=== PATIENT | male | born 1945 | race Hispanic/Latino ===

== ENCOUNTER 2017-05-02 15:58 | Emergency (ER) | payer MEDICARE ==
--- NOTE | 2017-05-02 17:02 | RAD ---
PROCEDURE: Radiographs of the Chest and Left Ribs. HISTORY: trauma COMPARISON: None available. TECHNIQUE: Frontal radiograph of the chest and multiple oblique radiographs of the left ribs were obtained. FINDINGS: LEFT RIBS: Motion artifacts limit the study somewhat. No displaced fractures identified throughout the left ribs. LUNGS: No infiltrate bilaterally. PLEURA: No pneumothorax or pleural fluid. CARDIOVASCULAR: Normal sized heart. No pulmonary vascular congestion. OTHER FINDINGS: None. IMPRESSION: No definite left rib fracture identified. Motion artifacts limit frontal view somewhat. No acute infiltrate appreciated bilaterally. No pneumothorax apparent.
[2017-05-02] MEDS ORDERED: Lidocaine 5% Patch TD STA (17:09)
--- NOTE | 2017-05-02 17:13 | C.PDOC ---
History Of Present Illness SP FALL THIS MORNING CO L CHEST/BACK CONTUSION, PERSIST PAIN. PS TRIPPED ON RUG WHILE IN STORE, FELL ONTO L SIDE. NORMALLY WALKS W CANE ASSIST. NO OTHER ASSOC INJ. PAIN LOCALIZED WORSE W MOVEMENT. NO PAIN MEDS TRIED EXAM MILD DIST NONTOXIC HEENT ATRAUM NECK SUPPLE NONTEND CHEST WALL GEN TEND L LAT CHEST WALL MOD NO CREPITUS, SWELL DEFORM LUNGS CTA B/L NO W/R/R SKIN INTACT ATRAUM REMAINDER NEG - HPI Time Seen by Provider: 05/02/17 16:46 Chief Complaint (Nursing): Rib Injury History Per: Patient History/Exam Limitations: no limitations Onset/Duration Of Symptoms: Hrs Severity: Moderate Past Medical History Reviewed: Historical Data, Nursing Documentation, Vital Signs Vital Signs: Last Vital Signs Temp 97.9 F 05/02/17 16:29 Pulse 68 05/02/17 16:29 Resp 20 05/02/17 16:29 BP 176/95 H 05/02/17 16:29 Pulse Ox 98 05/02/17 18:05 - Medical History PMH: Arthritis, HTN, Hyperlipidemia Denies: Chronic Kidney Disease Surgical History: Coronary Stent - [facility] Procedures INSERTION OF INFUSION DEVICE INTO R [facility], PERC APPROACH (01/07/15) Family History: States: No Known Family Hx - Social History Hx Alcohol Use: No Hx Substance Use: No - Immunization History Hx Tetanus Toxoid Vaccination: Yes Hx Influenza Vaccination: Yes Hx Pneumococcal Vaccination: Yes Review Of Systems Except As Marked, All Systems Reviewed And Found Negative. Cardiovascular: Positive for: Chest Pain (left-sided chest pain) Musculoskeletal: Positive for: Back Pain Neurological: Negative for: Weakness, Numbness Physical Exam - Physical Exam Appears: Non-toxic, Other (mild distress) Skin: Normal Color, Warm, Other (intact, atraumatic) Head: Atraumatic, Normacephalic Eye(s): bilateral: Normal Inspection Neck: No Midline Cervical Tenderness, Supple Chest: Tenderness (moderate generalized tenderness to lateral chest wall), Other (no crepitus, no swelling, no deformity) Respiratory: Normal Breath Sounds, No Rales, No Rhonchi, No Wheezing Neurological/Psych: Oriented x3, Normal Speech ED Course And Treatment O2 Sat by Pulse Oximetry: 98 (RA) Pulse Ox Interpretation: Normal - Radiology CXR: Interpreted by Me CXR Interpretation: Yes: No Acute Disease Medical Decision Making Medical Decision Making: Plan: --Flexeril PO --Motrin PO --Tylenol PO --Lidoderm Patch --X-Ray - Ribs with Chest Disposition Counseled Patient/Family Regarding: Studies Performed, Diagnosis, Need For Followup, Rx Given - Disposition Referrals: YOUR,PMD [Other] Disposition: HOME/ ROUTINE Disposition Time: 17:13 Condition: IMPROVED Prescriptions: Acetaminophen [Tylenol Extra Strength] 2 tab PO Q6 #30 tablet Cyclobenzaprine [Flexeril] 10 mg PO TID #15 tab Ibuprofen [Motrin] 600 mg PO Q6 #30 tab Lidocaine 5% [Lidoderm] 1 ea TD PRN PRN #20 patch PRN Reason: Pain, Moderate (4-7) Instructions: Bruised Rib (DC) Forms: [employer] (Thai) - Clinical Impression Clinical Impression: Chest wall contusion - Scribe Statement The provider has reviewed the documentation as recorded by the Rosa Hensley Provider Attestation: All medical record entries made by the Radhaiblydia were at my direction and personally dictated by me. I have reviewed the chart and agree that the record accurately reflects my personal performance of the history, physical exam, medical decision making, and the department course for this patient. I have also personally directed, reviewed, and agree with the discharge instructions and disposition.
[2017-05-03 11:18] VITALS: BP 176/95; PULSE 68; RESP 20; TEMP 97.9; O2SAT 98; BMI 36.5
== END 2017-05-02 17:30 | disposition home or self-care (01) ==
LOC: C.ER 15:58
DX: S20.212A Contusion of left front wall of thorax, initial encounter (principal); W01.0XXA Fall on same level from slipping, tripping and stumbling without subsequent striking against object, initial encounter; Y92.512 Supermarket, store or market as the place of occurrence of the external cause; E78.5 Hyperlipidemia, unspecified; I10 Essential (primary) hypertension

== ENCOUNTER 2017-08-03 17:54 | Emergency (ER) | payer MEDICARE ==
[2017-08-03 17:55] VITALS: BMI 36.5
[2017-08-03 18:08] VITALS: RESP 20
[2017-08-03 18:46] LABS: BASO % 0.7 % (0.0-2.0); EOS # 0.1 K/uL (0.0-0.7); EOS % 1.7 % (0.0-4.0); HEMOGLOBIN 14.5 g/dL (12.0-18.0); LYMPH # 2.9 K/uL (1.0-4.3); LYMPH % 42.7 % (20.0-40.0); MEAN CELL VOLUME 87.7 fL (80.0-94.0); MEAN CORPUSCULAR HEMOGLOBIN 29.5 pg (27.0-31.0); MEAN CORPUSCULAR HGB CONC 33.7 g/dL (33.0-37.0); MEAN PLATELET VOLUME 9.7 fL (7.2-11.7); MONO # 0.6 K/uL (0.0-0.8); MONO % 9.3 % (0.0-10.0); NEUT # 3.1 K/uL (1.8-7.0); NEUT % 45.6 % (50.0-75.0); NRBC % 0.1 % (0.0-2.0); RBC 4.9 Mil/uL (4.40-5.90); RED CELL DISTRIBUTION WIDTH 13.6 % (11.5-14.5); WHITE BLOOD COUNT 6.8 K/uL (4.8-10.8)
[2017-08-03 19:03] LABS: ALB/GLOB RATIO 1.3 (1.0-2.1); ALT/SGPT 22 U/L (21-72); AST/SGOT 22 U/L (17-59); BLOOD UREA NITROGEN 22 mg/dL (9-20); CALCIUM 9.2 mg/dl (8.6-10.4); GFR AFRICAN-AMERICAN > 60; GFR NON-AFRICAN AMERICAN > 60
[2017-08-03 19:21] VITALS: BP 157/83; PULSE 73; TEMP 98.2; O2SAT 98
--- NOTE | 2017-08-03 19:38 | C.PDOC ---
History Of Present Illness 72-year-old male, presents to the emergency department complaining of redness to right lower extremity noted earlier today. He denies any fever, trauma to area or warmth. Chief Complaint (Nursing): Abnormal Skin Integrity History Per: Patient History/Exam Limitations: no limitations Onset/Duration Of Symptoms: Days Current Symptoms Are (Timing): Still Present Past Medical History Reviewed: Historical Data, Nursing Documentation, Vital Signs Vital Signs: Last Vital Signs Temp 98.2 F 08/03/17 19:15 Pulse 73 08/03/17 19:15 Resp 20 08/03/17 19:15 BP 157/83 H 08/03/17 19:15 Pulse Ox 98 08/03/17 19:38 - Medical History PMH: Arthritis, HTN, Hyperlipidemia Surgical History: Coronary Stent, Tonsillectomy - [facility] Procedures INSERTION OF INFUSION DEVICE INTO R [facility], PERC APPROACH (01/07/15) Family History: States: No Known Family Hx - Social History Hx Alcohol Use: No Hx Substance Use: No - Immunization History Hx Tetanus Toxoid Vaccination: No Hx Influenza Vaccination: Yes Hx Pneumococcal Vaccination: Yes Review Of Systems Constitutional: Negative for: Fever, Chills Cardiovascular: Negative for: Chest Pain, Palpitations Respiratory: Negative for: Cough, Shortness of Breath Gastrointestinal: Negative for: Nausea, Vomiting Musculoskeletal: Positive for: Other (swelling to leg) Neurological: Negative for: Headache, Dizziness Physical Exam - Physical Exam Appears: Non-toxic, No Acute Distress Skin: Normal Color, Warm, Dry, No Rash Head: Atraumatic, Normacephalic Eye(s): bilateral: Normal Inspection, PERRL, EOMI Nose: Normal Oral Mucosa: Moist Lips: Normal Appearing Neck: Normal ROM Cardiovascular: Rhythm Regular, No Murmur Respiratory: Normal Breath Sounds, No Accessory Muscle Use Gastrointestinal/Abdominal: Soft, No Tenderness Extremity: Pedal Edema (B/L lower extremities with chronic venous stasis changes ), Other (RLE: 3x4cm area of erythema. Not warm or tender) Pulses: Left Dorsalis Pedis: Normal, Right Dorsalis Pedis: Normal Neurological/Psych: Oriented x3, Normal Speech ED Course And Treatment - Laboratory Results Result Diagrams: 08/03/17 18:42 08/03/17 18:42 O2 Sat by Pulse Oximetry: 98 (RA) Pulse Ox Interpretation: Normal Disposition - Disposition Referrals: Elliot Olivarez MD [Staff Provider] - Disposition: HOME/ ROUTINE Disposition Time: 19:00 Condition: GOOD Additional Instructions: MANDO LOPES, thank you for letting us take care of you today. Your provider was Leonardo Rogers DO and you were treated for ABNORMAL SKIN/RT LEG. The emergency medical care you received today was directed at your acute symptoms. If you were prescribed any medication, please fill it and take as directed. It may take several days for your symptoms to resolve. Return to the Emergency Department if your symptoms worsen, do not improve, or if you have any other problems. Please contact your doctor or call one of the physicians/clinics you have been referred to that are listed on the Patient Visit Information form that is included in your discharge packet. Bring any paperwork you were given at discharge with you along with any medications you are taking to your follow up visit. Our treatment cannot replace ongoing medical care by a primary care provider outside of the emergency department. Thank you for allowing the [facility] team to be part of your care today. Follow up with Dr. Olivarez in 3-4 days for re-evaluation and further management. Prescriptions: Cephalexin [cephalexin] 500 mg PO Q8 #21 cap Sulfamethoxazole/Trimethoprim [Bactrim DS 800 mg-160 mg] 1 tab PO BID #14 tab Instructions: Cellulitis (Skin Infection), Adult (DC) Forms: [employer] (Venezuelan) - Clinical Impression Clinical Impression: Cellulitis - Scribe Statement The provider has reviewed the documentation as recorded by the Scribe (Marin Bryant) All medical record entries made by the Scribe were at my direction and personally dictated by me. I have reviewed the chart and agree that the record accurately reflects my personal performance of the history, physical exam, medical decision making, and the department course for this patient. I have also personally directed, reviewed, and agree with the discharge instructions and disposition.
== END 2017-08-03 20:01 | disposition home or self-care (01) ==
LOC: C.ER 17:54
DX: L03.115 Cellulitis of right lower limb (principal)

== ENCOUNTER 2018-05-02 15:53 | Inpatient (IN) | payer MEDICARE ==
[2018-05-02 15:53] VITALS: BMI 36.5
[2018-05-02 16:44] LABS: BASO % 0.8 % (0.0-2.0); EOS # 0.1 K/uL (0.0-0.7); EOS % 1.9 % (0.0-4.0); HEMOGLOBIN 14.4 g/dL (12.0-18.0); LYMPH # 1.8 K/uL (1.0-4.3); LYMPH % 31.1 % (20.0-40.0); MEAN CELL VOLUME 88.4 fL (80.0-94.0); MEAN CORPUSCULAR HEMOGLOBIN 28.8 pg (27.0-31.0); MEAN CORPUSCULAR HGB CONC 32.6 g/dL (33.0-37.0); MONO # 0.6 K/uL (0.0-0.8); MONO % 9.7 % (0.0-10.0); NEUT # 3.4 K/uL (1.8-7.0); NEUT % 56.5 % (50.0-75.0); RBC 5.01 Mil/uL (4.40-5.90); RED CELL DISTRIBUTION WIDTH 13.6 % (11.5-14.5); WHITE BLOOD COUNT 5.9 K/uL (4.8-10.8)
[2018-05-02 17:03] LABS: ALB/GLOB RATIO 1.4 (1.0-2.1); ALBUMIN 3.9 g/dL (3.5-5.0); AST/SGOT 32 U/L (17-59); BLOOD UREA NITROGEN 11 mg/dL (9-20); CALCIUM 9.3 mg/dl (8.6-10.4); GFR NON-AFRICAN AMERICAN > 60
--- NOTE | 2018-05-02 17:03 | C.PDOC ---
History Of Present Illness Patient is a 72 year old male, with a PMHx of diabetes, HTN, HLD who presents to the ED c/o bleeding from his right big toe that began 2 days ago. Patient states that he has chronic pedal edema, but noticed that his right foot swelled up more than his left after which he went to his PMD Dr. Olivarez, who have him medications and the swelling went down. He denies any CP, SOB, or abdominal pain. Time Seen by Provider: 05/02/18 16:04 Chief Complaint (Nursing): Lower Extremity Problem/Injury History Per: Patient History/Exam Limitations: no limitations Onset/Duration Of Symptoms: Days (2) Current Symptoms Are (Timing): Still Present Recent travel outside of the [place]: No Additional History Per: Patient Past Medical History Reviewed: Historical Data, Nursing Documentation, Vital Signs Vital Signs: Last Vital Signs Temp 97.6 F 05/02/18 16:06 Pulse 92 H 05/02/18 16:06 Resp 20 05/02/18 16:06 BP 190/63 H 05/02/18 16:06 Pulse Ox 99 05/02/18 16:06 - Medical History PMH: Arthritis, Diabetes, HTN, Hyperlipidemia Denies: Chronic Kidney Disease Surgical History: Coronary Stent, Tonsillectomy - [facility] Procedures INSERTION OF INFUSION DEVICE INTO R [facility], PERC APPROACH (01/07/15) Family History: States: No Known Family Hx - Social History Hx Alcohol Use: No Hx Substance Use: No - Immunization History Hx Tetanus Toxoid Vaccination: No Hx Influenza Vaccination: Yes (2018) Hx Pneumococcal Vaccination: Yes Review Of Systems Cardiovascular: Negative for: Chest Pain Respiratory: Negative for: Shortness of Breath Gastrointestinal: Negative for: Abdominal Pain Musculoskeletal: Positive for: Leg Pain (chronic pedeal edema), Foot Pain (bleeding from right big toe ) Physical Exam - Physical Exam Appears: Non-toxic, No Acute Distress Head: Atraumatic, Normacephalic Chest: Symmetrical, No Deformity Cardiovascular: Rhythm Regular, No Murmur Respiratory: Normal Breath Sounds, No Rales, No Rhonchi, No Wheezing Gastrointestinal/Abdominal: Soft, No Tenderness Extremity: Pedal Edema (chronic pedal edema with venostasis changes to skin to bilateral lower extremities. right foot is scaly with unkept toenails with fungus. Right big toe has nonhealing ulcer with erythema and inflammation. Left foot is unkept with redness and swelling and scaly nails with fungus. ) Neurological/Psych: Oriented x3 ED Course And Treatment - Laboratory Results Result Diagrams: 05/02/18 16:40 05/02/18 16:40 O2 Sat by Pulse Oximetry: 99 (on RA) Pulse Ox Interpretation: Normal Medical Decision Making Medical Decision Making: Plan: Labs Xray RT Foot Spoke with podiatry. xray looks like osteomyletis of right toe and right foot Advised vancomycin and zosyn to be given to patient and advised required hospita lization and they will see him tomorrow Discussed with agrees with management Disposition Discussed With .: Elliot Olivarez Counseled Patient/Family Regarding: Studies Performed, Diagnosis - Disposition Disposition: HOSPITALIZED Disposition Time: 18:32 Condition: GUARDED Forms: [facility] (Moroccan) - Clinical Impression Clinical Impression: Osteomyelitis of toe of right foot - Scribe Statement The provider has reviewed the documentation as recorded by the Radhaiblydia Amador All medical record entries made by the Scribe were at my direction and personally dictated by me. I have reviewed the chart and agree that the record accurately reflects my personal performance of the history, physical exam, medical decision making, and the department course for this patient. I have also personally directed, reviewed, and agree with the discharge instructions and disposition. Decision To Admit - Pt Status Changed To: Hospital Disposition Of: Inpatient - Admit Certification Admit to Inpatient:: After my assessment, the patient will require hospitalization for at least two midnights. This is because of the severity of symptoms shown, intensity of services needed, and/or the medical risk in this patient being treated as an outpatient. - InPatient: Physician Admission Certification: I certify that this patient requires 2 or more midnights of care for the following reason:: osteomyelitis - . Bed Request Type: Regular Admitting Physician: Elliot Olivarez Patient Diagnosis: Osteomyelitis of toe of right foot
[2018-05-02 17:06] LABS: ALT/SGPT < 6 U/L (21-72)
[2018-05-02] MEDS ORDERED: Piperacillin/Tazobact 3.375 GM in Sodium Chloride 100 ML IVPB STA (18:35)
--- NOTE | 2018-05-02 18:49 | RAD ---
PROCEDURE: Radiographs of the right great toe. TECHNIQUE:: AP radiograph of the right foot, with oblique and lateral view of the right great toe. COMPARISON: None. TECHNIQUE: 3 views obtained. FINDINGS: BONES: Bony destruction proximal phalanx. Cortical irregularity distal phalanx. JOINTS: Normal. SOFT TISSUES: Soft tissue injury/ulceration at the site of bony destruction proximal phalanx. OTHER FINDINGS: None. IMPRESSION: Findings suspicious for acute osteomyelitis 1st digit right foot. The finding is marked on the study for review.
[2018-05-02] MEDS ORDERED: Vancomycin 1 GM 1 GM/250 ML BAG IVPB ONE (18:54)
[2018-05-02] MEDS ORDERED: Piperacillin/Tazobact 3.375 gm 100 ML IVPB ONE (18:54)
[2018-05-02] MEDS: (Novolog) Insulin Aspart, Recombinant 100 u/ml 10 ml vial SC SCH (22:08)
[2018-05-02] MEDS: Rosuvastatin Calcium 2.5 mg Tab PO SCH (22:13)
[2018-05-03] MEDS: (Novolog) Insulin Aspart, Recombinant 100 u/ml 10 ml vial SC SCH ×4 (08:28→21:52)
--- NOTE | 2018-05-03 09:27 | CP.PCM.PN ---
Subjective - Date & Time of Evaluation Date of Evaluation: 05/03/18 Time of Evaluation: 09:26 - Subjective Subjective: 72 year old male, with a PMHx of diabetes, HTN, HLD who presents to the ED c/o bleeding from his right big toe that began about 2 days ago. Patient states that he has chronic pedal edema, but noticed that his right foot swelled up more than his left after which he went to his PMD Dr. Olivarez, who have him medications and the swelling went down. Patient intially reported the pain to be throbbing in nature and rated it a 5/10 in severity. Patient today says the bleeding hasn't came back yet. Patient also report pain is controlled at this time. He denies any CP, SOB, or abdominal pain. Surgical history: tonsillectomy, cardiac stent Allergies: Idalia stuart Social history: Occasional drinker. Denies tobacco. Denies illicit drugs Objective - Vital Signs/Intake and Output Vital Signs (last 24 hours): Temp Pulse Resp BP Pulse Ox 97.9 F 82 20 147/79 97 05/03/18 07:58 05/03/18 07:58 05/03/18 07:58 05/03/18 07:58 05/03/18 07:58 - Medications Medications: Current Medications Carvedilol (Coreg) 6.25 mg PO BID [facility] Cyclobenzaprine HCl (Flexeril) 10 mg PO TID [facility] Enoxaparin Sodium (Lovenox) 40 mg SC DAILY [facility] Glipizide (Glucotrol) 10 mg PO ACBD [facility] Last Admin: 05/03/18 08:28 Dose: 10 mg Hydrochlorothiazide (Hydrodiuril) 25 mg PO DAILY [facility] Ibuprofen (Motrin Tab) 600 mg PO Q6H PRN PRN Reason: Pain, moderate (4-7) Insulin Aspart (Novolog) 0 unit SC ACHS [facility]; Protocol Last Admin: 05/03/18 08:28 Dose: 2 unit Lisinopril (Zestril) 5 mg PO DAILY [facility] Metformin [facility] Last Admin: 05/03/18 08:28 Dose: 1,000 mg Pneumococcal Polyvalent Vaccine (Pneumovax 23 Vaccine) 0.5 ml IM .ONCE ONE Stop: 05/04/18 10:01 Rosuvastatin Calcium (Crestor) 2.5 mg PO HS MICHEL Last Admin: 05/02/18 22:13 Dose: Not Given Spironolactone (Aldactone) 25 mg PO DAILY MICHEL - Labs Labs: 05/02/18 16:40 05/02/18 16:40 - Head Exam Head Exam: ATRAUMATIC, NORMAL INSPECTION - Eye Exam Eye Exam: EOMI, Normal appearance, PERRL Pupil Exam: NORMAL ACCOMODATION, PERRL. absent: Irregular, Unequal - ENT Exam ENT Exam: Mucous Membranes Moist, Normal Oropharynx - Respiratory Exam Respiratory Exam: Clear to Ausculation Bilateral, NORMAL BREATHING PATTERN. absent: Prolonged Expiratory Phase, Respiratory Distress - Cardiovascular Exam Cardiovascular Exam: REGULAR RHYTHM, +S1, +S2 - GI/Abdominal Exam GI & Abdominal Exam: Soft, Normal Bowel Sounds. absent: Rigid, Hyperactive Bowel Sounds - Extremities Exam Extremities Exam: Full ROM, Normal Inspection. absent: Joint Swelling, Pedal Edema - Back Exam Back Exam: NORMAL INSPECTION. absent: CVA tenderness (R), paraspinal tenderness - Neurological Exam Neurological Exam: Alert, Awake, CN II-XII Intact, Oriented x3 - Psychiatric Exam Psychiatric exam: Normal Affect, Normal Mood. absent: Anxious, Depressed - Skin Skin Exam: Dry, Intact, Normal Color Assessment and Plan - Assessment and Plan (Free Text) Assessment: 72 year old male with a past medical history of diabetes, hypertension, chf, and cellulitis presents with toe bleeding. Plan: 1.Osteomyelitis -Foot xray:Findings suspicious for acute osteomyelitis 1st digit right foot. The finding is marked on the study for review. -ESR: 40 -Blood culture ordered. Will f/u with results. -Wound culture ordered. Will f/u with results. -Infectious Disease consulted--> Help appreciated -Podiatry Dr. Guy consulted--> Help appreciated. Medications: Vancomycin 1g IVPB Q12 MICHEL Zosyn 3.375 gm IVPB Q8 MICHEL 2. hx of Diabetes -Continue Metformin 1000 mg PO BID -Continue Glipizide 10mg PO ACBD MICHEL RISS ACHS 3. hx of hypertension -Continue Lisinopril 5mg PO Daily -Continue Coreg 6.25mg PO BID MICHEL 4. hx of Hyperlipidemia -Continue Crestor 2.5mg PO HS MICHEL 5. hx of Cirrhosis -Continue Aldactone 25mg PO DAILY ppx -Lovenox 40mg SC DAILY MICHEL All management per . Gabe Taylor, PGY-2
[2018-05-03] MEDS: Enoxaparin 40 mg Syringe SC SCH (10:23)
[2018-05-03] MEDS: VANCOMYCIN IVPB SCH (13:24)
[2018-05-03] MEDS: NS IVPB SCH (13:24)
[2018-05-03] MEDS: Piperacillin/Tazobact 3.375 GM in Sodium Chloride 100 ML IVPB SCH ×2 (14:24→21:48)
--- NOTE | 2018-05-03 19:54 | CP.PCM.CON ---
History of Present Illness - History of Present Illness History of Present Illness: Patient is a 72 year old male, with a PMHx of diabetes, HTN, HLD who is admitted with swelling redness and drainage from right great toe Referred for ID eval for antibiotic management pending cultures - concern for OM great toe - Medical History PMH: Arthritis, Diabetes, HTN, Hyperlipidemia Denies: Chronic Kidney Disease Surgical History: Coronary Stent, Tonsillectomy - [facility] Procedures INSERTION OF INFUSION DEVICE INTO R [facility], PERC APPROACH (01/07/15) Review of Systems - Review of Systems All systems: reviewed and no additional remarkable complaints except - Constitutional Constitutional: As Per HPI - EENT Eyes: absent: As Per HPI, Blind Spots, Blurred Vision, Change in Vision, Decreased Night Vision, Diplopia, Discharge, Dry Eye, Exophthalmos, Floaters, Irritation, Itchy Eyes, Loss of Peripheral Vision, Pain, Photophobia, Requires Corrective Lenses, Sees Flashes, Spots in Vision, Tunnel Vision, Other Visual Disturbances, Loss of Vision, Other Ears: absent: As Per HPI, Decreased Hearing, Ear Discharge, Ear Pain, Tinnitus, Abnormal Hearing, Disequilibrium, Dizziness, Other Nose/Mouth/Throat: absent: As Per HPI, Epistaxis, Nasal Congestion, Nasal Discharge, Nasal Obstruction, Nasal Trauma, Nose Pain, Post Nasal Drip, Sinus Pain, Sinus Pressure, Bleeding Gums, Change in Voice, Dental Pain, Dry Mouth, Dysphagia, Halitosis, Hoarsness, Lip Swelling, Mouth Lesions, Mouth Pain, Odynophagia, Sore Throat, Throat Swelling, Tongue Swelling, Facial Pain, Neck Pain, Neck Mass, Other - Cardiovascular Cardiovascular: absent: As Per HPI, Acrocyanosis, Chest Pain, Chest Pain at Rest, Chest Pain with Activity, Claudication, Diaphoresis, Dyspnea, Dyspnea on Exertion, Edema, Irregular Heart Rhythm, Pain Radiating to Arm/Neck/Jaw, Leg Edema, Leg Ulcers, Lightheadedness, Orthopnea, Palpitations, Paroxysmal Nocturnal Dyspnea, Pedal Edema, Radiating Pain, Rapid Heart Rate, Slow Heart Rate, Syncope, Other - Respiratory Respiratory: absent: As Per HPI, Cough, Dyspnea, Hemoptysis, Dyspnea on Exertion, Wheezing, Snoring, Stridor, Pain on Inspiration, Chest Congestion, Excessive Mucous Production, Change in Mucous Color, Pain with Coughing, Other - Gastrointestinal Gastrointestinal: absent: As Per HPI, Abdominal Pain, Belching, Bloating, Change in Bowel Habits, Change in Stool Character, Coffee Ground Emesis, Constipation, Cramping, Diarrhea, Dyspepsia, Dysphagia, Early Satiety, Excessive Flatus, Fecal Incontinence, Heartburn, Hematemesis, Hematochezia, Loose Stools, Melena, Nausea, Odynophagia, Temesmus, Vomiting, Other - Genitourinary Genitourinary: absent: As Per HPI, Change in Urinary Stream, Difficulty Urinating, Dysuria, Flank Pain, Hematuria, Pyuria, Nocturia, Urinary Incontinence, Urinary Frequency, Urinary Hesitance, Urinary Urgency, Voiding Freq/Small Amts, Freq UTI, Hx Renal/Bladder Calculi, Hx /Renal Surgery, Bladder Distension, Other - Musculoskeletal Musculoskeletal: As Per HPI - Integumentary Integumentary: Skin Pain, Wounds - Neurological Neurological: As Per HPI - Psychiatric Psychiatric: absent: As Per HPI, Abnormal Sleep Pattern, Anhedonia, Anxiety, Auditory Hallucinations, Behavioral Changes, Change in Appetite, Change in Libido, Confusion, Depression, Difficulty Concentrating, Hallucinations, Homicidal Ideation, Hopelessness, Irritability, Memory Loss, Mood Swings, Panic Attacks, Paranoia, Suicidal Ideation, Visual Hallucinations, Tactile Hallucinations, Other - Endocrine Endocrine: absent: As Per HPI, Change in Body Appearance, Change in Libido, Cold Intolorance, Deepening of Voice, Excessive Sweating, Fatigue, Flushing, Heat Intolorance, Increase in Ring/Shoe/Hat Size, Palpitations, Polydipsia, Polyphagia, Polyuria, Other Past Patient History - Infectious Disease Hx of Infectious Diseases: None - Past Medical History & Family History Past Medical History?: Yes - Past Social History Smoking Status: Current Some Days Smoker - CARDIAC Hx Hypertension: Yes - PULMONARY Hx Respiratory Disorders: No - NEUROLOGICAL Hx Neurological Disorder: No - HEENT Hx HEENT Problems: No - RENAL Hx Chronic Kidney Disease: No - ENDOCRINE/METABOLIC Hx Diabetes Mellitus Type 2: Yes - HEMATOLOGICAL/ONCOLOGICAL Hx Blood Disorders: No - INTEGUMENTARY Hx Dermatological Problems: Yes Other/Comment: Right big toe infecton - MUSCULOSKELETAL/RHEUMATOLOGICAL Hx Arthritis: Yes - GASTROINTESTINAL Hx Gastrointestinal Disorders: No - GENITOURINARY/GYNECOLOGICAL Hx Genitourinary Disorders: No - PSYCHIATRIC Hx Substance Use: No - SURGICAL HISTORY Hx Coronary Stent: Yes Hx Tonsillectomy: Yes - ANESTHESIA Hx Anesthesia: Yes Hx Anesthesia Reactions: No Meds Allergies/Adverse Reactions: Allergies Allergy/AdvReac Type Severity Reaction Status Date / Time gerardo stuart Allergy Uncoded 08/03/17 18:08 - Medications Medications: Current Medications Carvedilol (Coreg) 6.25 mg PO BID [facility] Last Admin: 05/03/18 18:21 Dose: 6.25 mg Cyclobenzaprine HCl (Flexeril) 10 mg PO TID [facility] Last Admin: 05/03/18 18:21 Dose: 10 mg Enoxaparin Sodium (Lovenox) 40 mg SC DAILY [facility] Last Admin: 05/03/18 10:23 Dose: 40 mg Glipizide (Glucotrol) 10 mg PO ACBD [facility] Last Admin: 05/03/18 16:46 Dose: 10 mg Hydrochlorothiazide (Hydrodiuril) 25 mg PO DAILY [facility] Last Admin: 05/03/18 10:23 Dose: 25 mg Vancomycin/Sodium Chloride (Vancomycin 1 Gm/Ns 200 Ml) 1 gm in 200 mls @ 133 mls/hr IVPB Q12H [facility]; Protocol Stop: 05/08/18 13:01 Last Admin: 05/03/18 13:24 Dose: 133 mls/hr Piperacillin Sod/Tazobactam (Sod 3.375 gm/ Sodium Chloride) 100 mls @ 200 mls/hr IVPB Q8H [facility]; Protocol Last Admin: 05/03/18 14:24 Dose: 200 mls/hr Ibuprofen (Motrin Tab) 600 mg PO Q6H PRN PRN Reason: Pain, moderate (4-7) Influenza Virus Vaccine (Flucelvax Quad 8816-2451 Syr) 60 mcg IM .ONCE ONE Stop: 05/04/18 10:01 Insulin Aspart (Novolog) 0 unit SC ACHS [facility]; Protocol Last Admin: 05/03/18 16:46 Dose: 1 unit Lisinopril (Zestril) 5 mg PO DAILY [facility] Last Admin: 05/03/18 10:23 Dose: 5 mg Metformin HCl (Glucophage) 1,000 mg PO BIDPC [facility] Last Admin: 05/03/18 18:22 Dose: 1,000 mg Pneumococcal Polyvalent Vaccine (Pneumovax 23 Vaccine) 0.5 ml IM .ONCE ONE Stop: 05/04/18 10:01 Rosuvastatin Calcium (Crestor) 2.5 mg PO HS [facility] Last Admin: 05/02/18 22:13 Dose: Not Given Spironolactone (Aldactone) 25 mg PO DAILY [facility] Last Admin: 05/03/18 10:23 Dose: 25 mg Physical Exam - Constitutional Appears: Non-toxic, No Acute Distress, Chronically Ill - Head Exam Head Exam: ATRAUMATIC, NORMOCEPHALIC - Eye Exam Eye Exam: PERRL. absent: Scleral icterus Pupil Exam: NORMAL ACCOMODATION - ENT Exam ENT Exam: Mucous Membranes Dry, Normal External Ear Exam, Normal Oropharynx - Neck Exam Neck exam: Negative for: Lymphadenopathy - Respiratory Exam Respiratory Exam: Decreased Breath Sounds, Rhonchi - Cardiovascular Exam Cardiovascular Exam: REGULAR RHYTHM, +S1, +S2 - GI/Abdominal Exam GI & Abdominal Exam: Diminished Bowel Sounds, Soft. absent: Tenderness - Rectal Exam Rectal Exam: Deferred - Exam Exam: NORMAL INSPECTION - Extremities Exam Extremities exam: Positive for: pedal edema (x). Negative for: calf tenderness Additional comments: swelling right great toe with ulcer and drainage dorsum of foot - Back Exam Back exam: absent: CVA tenderness (L) (x), CVA tenderness (R), paraspinal tenderness - Neurological Exam Neurological exam: Alert, CN II-XII Intact, Oriented x3, Reflexes Normal - Psychiatric Exam Psychiatric exam: Depressed Results - Vital Signs Recent Vital Signs: Last Vital Signs Temp 97.9 F 05/03/18 16:00 Pulse 81 05/03/18 16:00 Resp 20 05/03/18 16:00 BP 111/66 05/03/18 16:00 Pulse Ox 98 05/03/18 16:00 - Labs Result Diagrams: 05/04/18 07:26 05/04/18 07:26 Labs: Laboratory Results - last 24 hr 05/02/18 05/02/18 05/03/18 20:07 22:03 02:47 ESR POC Glucose (mg/dL) 282 H 307 H 215 H C-Reactive Protein 05/03/18 05/03/18 05/03/18 06:42 06:42 07:24 ESR 40 H POC Glucose (mg/dL) 217 H C-Reactive Protein 5.40 05/03/18 05/03/18 11:16 16:06 ESR POC Glucose (mg/dL) 222 H 167 H C-Reactive Protein Assessment & Plan (1) Osteomyelitis of toe of right foot Status: Acute (2) CHF (congestive heart failure) Status: Acute (3) Cellulitis Status: Acute (4) Foot ulcer due to secondary DM Status: Acute (5) Hypertension Status: Acute - Assessment and Plan (Free Text) Assessment: await cultures imaging and vascular exam will likely require amputation cont empiric IV antibiotics
[2018-05-03] MEDS: Rosuvastatin Calcium 2.5 mg Tab PO SCH (22:12)
--- NOTE | 2018-05-03 23:30 | CP.PCM.CON ---
History of Present Illness - History of Present Illness History of Present Illness: Podiatry Consult Note- Dr Guy 72 M with PMHx of DM, HTN, HLD seen and evaluated with attending Dr. Guy at bedside for right hallux ulcer. Patient is seen resting comfortably in bed, in NAD, and AA0x3. Dressing clean, dry and intact on big toe. Patient reports that about 2-3 days ago when he took his socks off he noticed bleeding to his big toe. Does not recall any trauma. Patient thinks that it was dry skin/scab on the big toe and while pulling off the sock, he pulled the scab open. Patient currently rates his pain 5/10 the VAS scale. Reports throbbing pain. Patient denies nausea, fever, shortness of breath, chest pain or chills. PMHx: DM, HTN, HLD SH: tonsillectomy, cardiac stent ALL: gerardo stuart SH: reports occasionally drinks EtOH, denies smoking or illicit drug use Past Patient History - Infectious Disease Hx of Infectious Diseases: None - Past Medical History & Family History Past Medical History?: Yes - Past Social History Smoking Status: Current Some Days Smoker - CARDIAC Hx Hypertension: Yes - PULMONARY Hx Respiratory Disorders: No - NEUROLOGICAL Hx Neurological Disorder: No - HEENT Hx HEENT Problems: No - RENAL Hx Chronic Kidney Disease: No - ENDOCRINE/METABOLIC Hx Diabetes Mellitus Type 2: Yes - HEMATOLOGICAL/ONCOLOGICAL Hx Blood Disorders: No - INTEGUMENTARY Hx Dermatological Problems: Yes Other/Comment: Right big toe infecton - MUSCULOSKELETAL/RHEUMATOLOGICAL Hx Arthritis: Yes - GASTROINTESTINAL Hx Gastrointestinal Disorders: No - GENITOURINARY/GYNECOLOGICAL Hx Genitourinary Disorders: No - PSYCHIATRIC Hx Substance Use: No - SURGICAL HISTORY Hx Coronary Stent: Yes Hx Tonsillectomy: Yes - ANESTHESIA Hx Anesthesia: Yes Hx Anesthesia Reactions: No Meds Allergies/Adverse Reactions: Allergies Allergy/AdvReac Type Severity Reaction Status Date / Time gerardo stuart Allergy Uncoded 08/03/17 18:08 - Medications Medications: Current Medications Carvedilol (Coreg) 6.25 mg PO BID [facility] Last Admin: 05/03/18 18:21 Dose: 6.25 mg Cyclobenzaprine HCl (Flexeril) 10 mg PO TID [facility] Last Admin: 05/03/18 18:21 Dose: 10 mg Enoxaparin Sodium (Lovenox) 40 mg SC DAILY [facility] Last Admin: 03/29/19 10:23 Dose: 40 mg Glipizide (Glucotrol) 10 mg PO ACBD [facility] Last Admin: 05/03/18 16:46 Dose: 10 mg Hydrochlorothiazide (Hydrodiuril) 25 mg PO DAILY [facility] Last Admin: 05/03/18 10:23 Dose: 25 mg Vancomycin/Sodium Chloride (Vancomycin 1 Gm/Ns 200 Ml) 1 gm in 200 mls @ 133 mls/hr IVPB Q12H [facility]; Protocol Stop: 05/08/18 13:01 Last Admin: 05/03/18 13:24 Dose: 133 mls/hr Piperacillin Sod/Tazobactam (Sod 3.375 gm/ Sodium Chloride) 100 mls @ 200 mls/h r IVPB Q8H [facility]; Protocol Last Admin: 05/03/18 21:48 Dose: 200 mls/hr Ibuprofen (Motrin Tab) 600 mg PO Q6H PRN PRN Reason: Pain, moderate (4-7) Influenza Virus Vaccine (Flucelvax Quad 7168-7114 Syr) 60 mcg IM .ONCE ONE Stop: 05/04/18 10:01 Insulin Aspart (Novolog) 0 unit SC ACHS [facility]; Protocol Last Admin: 05/03/18 21:52 Dose: Not Given Lisinopril (Zestril) 5 mg PO DAILY [facility] Last Admin: 05/03/18 10:23 Dose: 5 mg Metformin HCl (Glucophage) 1,000 mg PO BIDPC [facility] Last Admin: 05/03/18 18:22 Dose: 1,000 mg Pneumococcal Polyvalent Vaccine (Pneumovax 23 Vaccine) 0.5 ml IM .ONCE ONE Stop: 05/04/18 10:01 Rosuvastatin Calcium (Crestor) 2.5 mg PO HS [facility] Last Admin: 05/03/18 22:12 Dose: Not Given Spironolactone (Aldactone) 25 mg PO DAILY [facility] Last Admin: 05/03/18 10:23 Dose: 25 mg Physical Exam - Constitutional Appears: Well, Non-toxic, No Acute Distress - Extremities Exam Extremities exam: Negative for: calf tenderness Additional comments: VASC: DP and PT unpalpable, temperature gradient WNL, CFT delayed >4 seconds to digits, non pitting edema noted to the R hallux ORTHO: mild pain with palpation of ulceration at the hallux NEURO: gross sensation and protective sensation diminished DERM: unkempt lower extremity with hyperkertotic, scaly lesions to entire lower extremity; ulceration on dorsum of hallux measuring approximately 1 cm x 1cm x .3 cm with wound base mixture of granular and fibrotic tissue, erythema to the entire foot, odorous, no active drainage or bleeding noted, no purulence, no abscess or fluctanance, xerosis cutis to entire lower extremity; hypertrophic, nail discoloration with subungal debris x10 - Neurological Exam Neurological exam: Alert, Oriented x3 - Psychiatric Exam Psychiatric exam: Normal Affect, Normal Mood Results - Vital Signs Recent Vital Signs: Last Vital Signs Temp 97.9 F 05/03/18 16:00 Pulse 81 05/03/18 16:00 Resp 20 05/03/18 16:00 BP 111/66 05/03/18 16:00 Pulse Ox 98 05/03/18 16:00 - Labs Result Diagrams: 05/02/18 16:40 05/02/18 16:40 Labs: Laboratory Results - last 24 hr 05/03/18 05/03/18 05/03/18 02:47 06:42 06:42 ESR 40 H POC Glucose (mg/dL) 215 H C-Reactive Protein 5.40 05/03/18 05/03/18 05/03/18 07:24 11:16 16:06 ESR POC Glucose (mg/dL) 217 H 222 H 167 H C-Reactive Protein 05/03/18 21:28 ESR POC Glucose (mg/dL) 196 H C-Reactive Protein Assessment & Plan - Assessment and Plan (Free Text) Assessment: 72 M with PMHx of DM, HTN, HLD with infected hallux ulcer with underlying osteomyelitis Plan: Patient seen and examined with attending Dr. Guy at bedside Labs, vitals, chart reviewed (WBC=5.9) X-rays reviewed- OM of 1st digit right foot CRP 5.40, ESR 40 Vascular consulted - recommendations appreciated Wound culture taken -pending results Continue abx per Dr. Kohli infectious disease Patient may WBAT in surgical shoe Please dispense surgical shoe Cleansed site with betadine, dsd, cling Ordered Dakins solution Encouraged patient to cleansed lower extremity with bath towel daily Educated on proper hygiene and foot care, patient reports verbal understanding Discussed with patient regarding treatment plans of OM including exterminator helper IV abx vs hallux amputation. Will continue to follow while in house Thank you for allowing us to participate in patient's care
[2018-05-04] MEDS: NS IVPB SCH ×2 (01:02→12:31)
[2018-05-04] MEDS: VANCOMYCIN IVPB SCH ×2 (01:02→12:31)
[2018-05-04] MEDS: Piperacillin/Tazobact 3.375 GM in Sodium Chloride 100 ML IVPB SCH ×3 (05:53→21:34)
[2018-05-04 07:55] LABS: BASO % 0.7 % (0.0-2.0); EOS # 0.1 K/uL (0.0-0.7); HEMOGLOBIN 12.5 g/dL (12.0-18.0); LYMPH # 2.6 K/uL (1.0-4.3); LYMPH % 40.6 % (20.0-40.0); MEAN CELL VOLUME 88.9 fL (80.0-94.0); MEAN CORPUSCULAR HEMOGLOBIN 29.4 pg (27.0-31.0); MEAN CORPUSCULAR HGB CONC 33.1 g/dL (33.0-37.0); MONO # 0.7 K/uL (0.0-0.8); MONO % 10.8 % (0.0-10.0); NEUT # 2.9 K/uL (1.8-7.0); NEUT % 45.9 % (50.0-75.0); RBC 4.25 Mil/uL (4.40-5.90); RED CELL DISTRIBUTION WIDTH 13.7 % (11.5-14.5); WHITE BLOOD COUNT 6.3 K/uL (4.8-10.8)
[2018-05-04 08:05] LABS: ALB/GLOB RATIO 1.4 (1.0-2.1); ALBUMIN 3.4 g/dL (3.5-5.0); ALT/SGPT 7 U/L (21-72); AST/SGOT 20 U/L (17-59); BLOOD UREA NITROGEN 17 mg/dL (9-20); CALCIUM 8.9 mg/dl (8.6-10.4); GFR NON-AFRICAN AMERICAN > 60
[2018-05-04] MEDS: (Novolog) Insulin Aspart, Recombinant 100 u/ml 10 ml vial SC SCH ×4 (08:39→21:35)
[2018-05-04] MEDS: Enoxaparin 40 mg Syringe SC SCH (09:50)
[2018-05-04] MEDS ORDERED: Pneumococcal 23-Valent Vaccine IM ONE (10:00)
[2018-05-04] MEDS ORDERED: Influenza Vaccine 60 mcg/0.5 mL SYR (4YR UP) IM ONE (10:00)
--- NOTE | 2018-05-04 11:15 | CP.PCM.PN ---
Subjective - Date & Time of Evaluation Date of Evaluation: 05/04/18 Time of Evaluation: 11:13 - Subjective Subjective: Podiatry Progress Note- Dr Guy 72 M with PMHx of DM, HTN, HLD seen and evaluated for right hallux ulcer. Patient is seen resting comfortably in bed, in NAD, and AA0x3. denies acute overnight events. No f/n/v/sob. Objective - Vital Signs/Intake and Output Vital Signs (last 24 hours): Temp Pulse Resp BP Pulse Ox 97.9 F 74 20 147/79 97 05/04/18 08:11 05/04/18 08:11 05/04/18 08:11 05/04/18 08:11 05/04/18 08:11 Intake and Output: 05/04/18 05/04/18 06:59 18:59 Intake Total 450 Balance 450 - Medications Medications: Current Medications Carvedilol (Coreg) 6.25 mg PO BID [facility] Last Admin: 05/04/18 09:50 Dose: 6.25 mg Cyclobenzaprine HCl (Flexeril) 10 mg PO TID [facility] Last Admin: 05/04/18 09:49 Dose: 10 mg Enoxaparin Sodium (Lovenox) 40 mg SC DAILY [facility] Last Admin: 05/04/18 09:50 Dose: 40 mg Glipizide (Glucotrol) 10 mg PO ACBD [facility] Last Admin: 05/04/18 08:39 Dose: 10 mg Hydrochlorothiazide (Hydrodiuril) 25 mg PO DAILY [facility] Last Admin: 05/04/18 09:49 Dose: 25 mg Vancomycin/Sodium Chloride (Vancomycin 1 Gm/Ns 200 Ml) 1 gm in 200 mls @ 133 m ls/hr IVPB Q12H [facility]; Protocol Stop: 05/08/18 13:01 Last Admin: 05/04/18 01:02 Dose: 133 mls/hr Piperacillin Sod/Tazobactam (Sod 3.375 gm/ Sodium Chloride) 100 mls @ 200 mls/hr IVPB Q8H [facility]; Protocol Last Admin: 05/04/18 05:53 Dose: 200 mls/hr Ibuprofen (Motrin Tab) 600 mg PO Q6H PRN PRN Reason: Pain, moderate (4-7) Insulin Aspart (Novolog) 0 unit SC ACHS [facility]; Protocol Last Admin: 05/04/18 08:39 Dose: 2 unit Lisinopril (Zestril) 5 mg PO DAILY [facility] Last Admin: 05/04/18 09:49 Dose: 5 mg Metformin HCl (Glucophage) 1,000 mg PO BIDPC [facility] Last Admin: 05/04/18 08:39 Dose: 1,000 mg Rosuvastatin Calcium (Crestor) 2.5 mg PO HS [facility] Last Admin: 05/03/18 22:12 Dose: Not Given Sodium Hypochlorite (Dakins Solution 0.125%) 1 appl TOP DAILY [facility] Last Admin: 05/04/18 10:01 Dose: Not Given Spironolactone (Aldactone) 25 mg PO DAILY [facility] Last Admin: 05/04/18 09:49 Dose: 25 mg - Labs Labs: 05/04/18 07:26 05/04/18 07:26 - Constitutional Appears: Well, Non-toxic, No Acute Distress - Head Exam Head Exam: ATRAUMATIC, NORMOCEPHALIC - Eye Exam Eye Exam: Normal appearance Pupil Exam: NORMAL ACCOMODATION - ENT Exam ENT Exam: Mucous Membranes Moist - Respiratory Exam Respiratory Exam: NORMAL BREATHING PATTERN - Cardiovascular Exam Cardiovascular Exam: REGULAR RHYTHM, +S1, +S2 - Extremities Exam Additional comments: VASC: DP and PT unpalpable, temperature gradient WNL, CFT delayed >4 seconds to digits, non pitting edema noted to the R hallux ORTHO: mild pain with palpation of ulceration at the hallux NEURO: gross sensation and protective sensation diminished DERM: unkempt lower extremity with hyperkertotic, scaly lesions to entire lower extremity; ulceration on dorsum of hallux measuring approximately 1 cm x 1cm x .3 cm with wound base mixture of granular and fibrotic tissue, erythema to the entire foot, odorous, no active drainage or bleeding noted, no purulence, no ab scess or fluctanance, xerosis cutis to entire lower extremity; hypertrophic, nail discoloration with subungal debris x10 - Neurological Exam Neurological Exam: Alert, Awake, Oriented x3 - Psychiatric Exam Psychiatric exam: Normal Affect Assessment and Plan - Assessment and Plan (Free Text) Assessment: 72 M with PMHx of DM, HTN, HLD with infected hallux ulcer with underlying osteomyelitis Plan: Patient seen and examined with attending Dr. Guy at bedside Labs, vitals, chart reviewed (WBC=5.9) X-rays reviewed- OM of 1st digit right foot CRP 5.40, ESR 40 GEORGETTE/PVR ordered Vascular consulted - recommendations appreciated Wound culture taken -pending results Continue abx per Dr. Kohli infectious disease Patient may WBAT in surgical shoe Please dispense surgical shoe Cleansed site with betadine, dsd Ordered Dakins solution Encouraged patient to cleansed lower extremity with bath towel daily Educated on proper hygiene and foot care, patient reports verbal understanding Discussed with patient regarding treatment plans of OM including custodial IV abx vs hallux amputation. Will continue to follow while in house Thank you for allowing us to participate in patient's care
--- NOTE | 2018-05-04 15:17 | CP.PCM.CON ---
History of Present Illness - History of Present Illness History of Present Illness: Consultation for evaluation of PVOD HPI Raoul Morin 72-year-old male past medical history is significant for hypertension diabetes mellitus hyperlipidemia who was evaluated for right hallux ulcer for underlying peripheral vascular occlusive disease. Patient reported that about 2-3 days ago he noticed when he took his socks of bleeding from the big toe does not recall any trauma he subsequently pulled off a scab which cause d ulcer reports throbbing pain. Past medical history as stated above significant for hypertension diabetes hyperlipidemia social history significant for CAD status post cardiac stent tonsillectomy allergies to [place] social history reports occasional alcohol denies any illicit drug use or smoking. Review of Systems - Review of Systems Systems not reviewed;Unavailable: Acuity of Condition - Constitutional Constitutional: As Per HPI - EENT Eyes: As Per HPI Ears: As Per HPI Nose/Mouth/Throat: As Per HPI - Cardiovascular Cardiovascular: As Per HPI - Respiratory Respiratory: As Per HPI - Gastrointestinal Gastrointestinal: As Per HPI - Genitourinary Genitourinary: As Per HPI - Reproductive: Male Reproductive:Male: As Per HPI - Musculoskeletal Musculoskeletal: As Per HPI - Integumentary Integumentary: As Per HPI - Neurological Neurological: As Per HPI - Psychiatric Psychiatric: As Per HPI - Endocrine Endocrine: As Per HPI - Hematologic/Lymphatic Hematologic: As Per HPI Past Patient History - Infectious Disease Hx of Infectious Diseases: None - Past Medical History & Family History Past Medical History?: Yes - Past Social History Smoking Status: Current Some Days Smoker - CARDIAC Hx Hypertension: Yes - PULMONARY Hx Respiratory Disorders: No - NEUROLOGICAL Hx Neurological Disorder: No - HEENT Hx HEENT Problems: No - RENAL Hx Chronic Kidney Disease: No - ENDOCRINE/METABOLIC Hx Diabetes Mellitus Type 2: Yes - HEMATOLOGICAL/ONCOLOGICAL Hx Blood Disorders: No - INTEGUMENTARY Hx Dermatological Problems: Yes Other/Comment: Right big toe infecton - MUSCULOSKELETAL/RHEUMATOLOGICAL Hx Arthritis: Yes - GASTROINTESTINAL Hx Gastrointestinal Disorders: No - GENITOURINARY/GYNECOLOGICAL Hx Genitourinary Disorders: No - PSYCHIATRIC Hx Substance Use: No - SURGICAL HISTORY Hx Coronary Stent: Yes Hx Tonsillectomy: Yes - ANESTHESIA Hx Anesthesia: Yes Hx Anesthesia Reactions: No Meds Allergies/Adverse Reactions: Allergies Allergy/AdvReac Type Severity Reaction Status Date / Time gerardo stuart Allergy Uncoded 08/03/17 18:08 - Medications Medications: Current Medications Carvedilol (Coreg) 6.25 mg PO BID [facility] Last Admin: 05/04/18 09:50 Dose: 6.25 mg Cyclobenzaprine HCl (Flexeril) 10 mg PO TID [facility] Last Admin: 05/04/18 14:34 Dose: 10 mg Enoxaparin Sodium (Lovenox) 40 mg SC DAILY [facility] Last Admin: 05/04/18 09:50 Dose: 40 mg Glipizide (Glucotrol) 10 mg PO ACBD [facility] Last Admin: 05/04/18 08:39 Dose: 10 mg Hydrochlorothiazide (Hydrodiuril) 25 mg PO DAILY [facility] Last Admin: 05/04/18 09:49 Dose: 25 mg Vancomycin/Sodium Chloride (Vancomycin 1 Gm/Ns 200 Ml) 1 gm in 200 mls @ 133 mls/hr IVPB Q12H [facility]; Protocol Stop: 05/08/18 13:01 Last Admin: 05/04/18 12:31 Dose: 133 mls/hr Piperacillin Sod/Tazobactam (Sod 3.375 gm/ Sodium Chloride) 100 mls @ 200 mls/hr IVPB Q8H [facility]; Protocol Last Admin: 05/04/18 14:34 Dose: 200 mls/hr Ibuprofen (Motrin Tab) 600 mg PO Q6H PRN PRN Reason: Pain, moderate (4-7) Insulin Aspart (Novolog) 0 unit SC ACHS [facility]; Protocol Last Admin: 05/04/18 12:30 Dose: 2 unit Lisinopril (Zestril) 5 mg PO DAILY [facility] Last Admin: 05/04/18 09:49 Dose: 5 mg Metformin HCl (Glucophage) 1,000 mg PO BIDPC [facility] Last Admin: 05/04/18 08:39 Dose: 1,000 mg Rosuvastatin Calcium (Crestor) 2.5 mg PO HS [facility] Last Admin: 05/03/18 22:12 Dose: Not Given Sodium Hypochlorite (Dakins Solution 0.125%) 1 appl TOP DAILY [facility] Last Admin: 05/04/18 10:01 Dose: Not Given Spironolactone (Aldactone) 25 mg PO DAILY [facility] Last Admin: 05/04/18 09:49 Dose: 25 mg Physical Exam - Constitutional Appears: Well - Head Exam Head Exam: ATRAUMATIC, NORMAL INSPECTION, NORMOCEPHALIC - Eye Exam Eye Exam: EOMI, Normal appearance, PERRL Pupil Exam: NORMAL ACCOMODATION, PERRL - ENT Exam ENT Exam: Mucous Membranes Moist, Normal Exam - Neck Exam Neck exam: Positive for: Normal Inspection - Respiratory Exam Respiratory Exam: Clear to Auscultation Bilateral, NORMAL BREATHING PATTERN - Cardiovascular Exam Cardiovascular Exam: REGULAR RHYTHM - GI/Abdominal Exam GI & Abdominal Exam: Normal Bowel Sounds, Soft. absent: Tenderness - Extremities Exam Additional comments: ulcer great toe - Back Exam Back exam: NORMAL INSPECTION - Neurological Exam Neurological exam: Alert, CN II-XII Intact, Normal Gait, Oriented x3, Reflexes Normal - Psychiatric Exam Psychiatric exam: Normal Affect, Normal Mood - Skin Skin Exam: Dry, Intact, Normal Color, Warm Results - Vital Signs Recent Vital Signs: Last Vital Signs Temp 97.9 F 05/04/18 08:11 Pulse 74 05/04/18 08:11 Resp 20 05/04/18 08:11 BP 147/79 05/04/18 08:11 Pulse Ox 97 05/04/18 08:11 - Labs Result Diagrams: 05/04/18 07:26 05/04/18 07:26 Labs: Laboratory Results - last 24 hr 05/03/18 05/03/18 05/04/18 16:06 21:28 07:16 WBC RBC Hgb Hct MCV MCH MCHC RDW Plt Count MPV Neut % (Auto) Lymph % (Auto) Wright % (Auto) Eos % (Auto) Baso % (Auto) Neut # (Auto) Lymph # (Auto) Wright # (Auto) Eos # (Auto) Baso # (Auto) Sodium Potassium Chloride Carbon Dioxide Anion Gap BUN Creatinine Est GFR ( Amer) Est GFR (Non-Af Amer) POC Glucose (mg/dL) 167 H 196 H 200 H Random Glucose Calcium Total Bilirubin AST ALT Alkaline Phosphatase Total Protein Albumin Globulin Albumin/Globulin Ratio 05/04/18 05/04/18 05/04/18 07:26 07:26 11:07 WBC 6.3 RBC 4.25 L Hgb 12.5 Hct 37.7 MCV 88.9 MCH 29.4 MCHC 33.1 RDW 13.7 Plt Count 159 MPV 10.0 Neut % (Auto) 45.9 L Lymph % (Auto) 40.6 H Wright % (Auto) 10.8 H Eos % (Auto) 2.0 Baso % (Auto) 0.7 Neut # (Auto) 2.9 Lymph # (Auto) 2.6 Wright # (Auto) 0.7 Eos # (Auto) 0.1 Baso # (Auto) 0.0 Sodium 131 L Potassium 3.8 Chloride 97 L Carbon Dioxide 27 Anion Gap 11 BUN 17 Creatinine 0.7 L Est GFR ( Amer) > 60 Est GFR (Non-Af Amer) > 60 POC Glucose (mg/dL) 201 H Random Glucose 188 H D Calcium 8.9 Total Bilirubin 0.5 AST 20 ALT 7 L Alkaline Phosphatase 65 Total Protein 5.9 L Albumin 3.4 L Globulin 2.4 Albumin/Globulin Ratio 1.4 Assessment & Plan (1) Osteomyelitis of toe of right foot Assessment and Plan: CTA of LE Status: Acute (2) CHF (congestive heart failure) Status: Acute (3) Cellulitis Status: Acute (4) Diabetes Status: Acute (5) Foot ulcer due to secondary DM Status: Acute (6) Hypertension Status: Acute
[2018-05-04] MEDS ORDERED: Iodixanol 320 mg/ml 150 ml Bottle IV ONE (16:35)
[2018-05-04] MEDS: Rosuvastatin Calcium 2.5 mg Tab PO SCH (21:33)
[2018-05-05] MEDS: VANCOMYCIN IVPB SCH ×2 (00:20→12:10)
[2018-05-05] MEDS: NS IVPB SCH ×2 (00:20→12:10)
[2018-05-05] MEDS: Piperacillin/Tazobact 3.375 GM in Sodium Chloride 100 ML IVPB SCH ×3 (06:09→21:23)
[2018-05-05] MEDS: (Novolog) Insulin Aspart, Recombinant 100 u/ml 10 ml vial SC SCH ×2 (08:22→12:07)
[2018-05-05 08:44] LABS: BASO % 0.7 % (0.0-2.0); EOS # 0.1 K/uL (0.0-0.7); EOS % 2.3 % (0.0-4.0); HEMOGLOBIN 13.3 g/dL (12.0-18.0); LYMPH # 1.6 K/uL (1.0-4.3); MEAN CELL VOLUME 89.7 fL (80.0-94.0); MEAN CORPUSCULAR HEMOGLOBIN 29.9 pg (27.0-31.0); MEAN CORPUSCULAR HGB CONC 33.4 g/dL (33.0-37.0); MEAN PLATELET VOLUME 9.7 fL (7.2-11.7); MONO # 0.7 K/uL (0.0-0.8); NEUT # 3.4 K/uL (1.8-7.0); NRBC % 0.1 % (0.0-2.0); RBC 4.43 Mil/uL (4.40-5.90); RED CELL DISTRIBUTION WIDTH 13.5 % (11.5-14.5); WHITE BLOOD COUNT 5.9 K/uL (4.8-10.8)
[2018-05-05 09:06] LABS: ALB/GLOB RATIO 1.4 (1.0-2.1); ALBUMIN 3.5 g/dL (3.5-5.0); ALT/SGPT 7 U/L (21-72); AST/SGOT 23 U/L (17-59); BLOOD UREA NITROGEN 14 mg/dL (9-20); CALCIUM 8.9 mg/dl (8.6-10.4); GFR NON-AFRICAN AMERICAN > 60
[2018-05-05] MEDS: Enoxaparin 40 mg Syringe SC SCH (09:46)
--- NOTE | 2018-05-05 11:25 | CP.PCM.PN ---
Subjective - Date & Time of Evaluation Date of Evaluation: 05/05/18 Time of Evaluation: 11:19 - Subjective Subjective: Podiatry Progress Note- Dr Guy 72 M with PMHx of DM, HTN, HLD seen and evaluated for right hallux ulcer. Patient is seen resting comfortably in bed, in NAD, and AA0x3. denies acute overnight events. No f/n/v/sob. Objective - Vital Signs/Intake and Output Vital Signs (last 24 hours): Temp Pulse Resp BP Pulse Ox 97.6 F 82 20 156/91 H 96 05/05/18 07:36 05/05/18 07:36 05/05/18 07:36 05/05/18 07:36 05/05/18 07:36 Intake and Output: 05/05/18 05/05/18 06:59 18:59 Intake Total 890 Output Total 500 Balance 390 - Medications Medications: Current Medications Carvedilol (Coreg) 6.25 mg PO BID [facility] Last Admin: 05/05/18 09:45 Dose: 6.25 mg Cyclobenzaprine HCl (Flexeril) 10 mg PO TID [facility] Last Admin: 05/05/18 09:45 Dose: 10 mg Enoxaparin Sodium (Lovenox) 40 mg SC DAILY [facility] Last Admin: 05/05/18 09:46 Dose: 40 mg Glipizide (Glucotrol) 10 mg PO ACBD [facility] Last Admin: 05/05/18 08:22 Dose: 10 mg Hydrochlorothiazide (Hydrodiuril) 25 mg PO DAILY [facility] Last Admin: 05/05/18 09:45 Dose: 25 mg Vancomycin/Sodium Chloride (Vancomycin 1 Gm/Ns 200 Ml) 1 gm in 200 mls @ 133 mls/hr IVPB Q12H [facility]; Protocol Stop: 05/08/18 13:01 Last Admin: 05/05/18 00:20 Dose: 133 mls/hr Piperacillin Sod/Tazobactam (Sod 3.375 gm/ Sodium Chloride) 100 mls @ 200 mls/hr IVPB Q8H [facility]; Protocol Last Admin: 05/05/18 06:09 Dose: 200 mls/hr Ibuprofen (Motrin Tab) 600 mg PO Q6H PRN PRN Reason: Pain, moderate (4-7) Insulin Aspart (Novolog) 0 unit SC ACHS [facility]; Protocol Last Admin: 05/05/18 08:22 Dose: 2 unit Lisinopril (Zestril) 5 mg PO DAILY [facility] Last Admin: 05/05/18 09:45 Dose: 5 mg Metformin HCl (Glucophage) 1,000 mg PO BIDPC [facility] Last Admin: 05/05/18 08:21 Dose: 1,000 mg Rosuvastatin Calcium (Crestor) 2.5 mg PO HS [facility] Last Admin: 05/04/18 21:33 Dose: 2.5 mg Sodium Hypochlorite (Dakins Solution 0.125%) 1 appl TOP DAILY [facility] Last Admin: 05/05/18 09:56 Dose: Not Given Spironolactone (Aldactone) 25 mg PO DAILY [facility] Last Admin: 05/05/18 09:45 Dose: 25 mg - Labs Labs: 05/05/18 08:15 05/05/18 08:15 - Constitutional Appears: Well, Non-toxic, No Acute Distress - Head Exam Head Exam: ATRAUMATIC - Eye Exam Eye Exam: Normal appearance - Extremities Exam Additional comments: VASC: DP and PT unpalpable, temperature gradient WNL, CFT delayed >4 seconds to digits, non pitting edema noted to the R hallux ORTHO: mild pain with palpation of ulceration at the hallux NEURO: gross sensation and protective sensation diminished DERM: unkempt lower extremity with hyperkertotic, scaly lesions to entire lower extremity; ulceration on dorsum of hallux measuring approximately 1 cm x 1cm x .3 cm with wound base mixture of granular and fibrotic tissue, minimal erythema to the entire foot, odorous, no active drainage or bleeding noted, no purulence, no abscess or fluctanance, xerosis cutis to entire lower extremity; hypertrophic, nail discoloration with subungal debris x10 Assessment and Plan - Assessment and Plan (Free Text) Assessment: 72 M with PMHx of DM, HTN, HLD with infected hallux ulcer with underlying osteomyelitis Plan: Patient seen and examined Labs, vitals, chart reviewed (WBC=5.9) X-rays reviewed- erosions noted of the first proximal phalanx CRP 5.40, ESR 40 Vascular consulted - recommendations appreciated; CTA LE Wound culture taken -pending results Continue abx per Dr. Kohli infectious disease Patient may WBAT in surgical shoe NICHOLAS Gore Educated on proper hygiene and foot care, patient reports verbal understanding Discussed with patient regarding treatment plans of OM including terminologist IV abx vs hallux amputation. Will continue to follow while in house
--- NOTE | 2018-05-05 14:26 | CT ---
Date of service: 05/04/2018 PROCEDURE: CT Angiography Abdomen, Pelvis and Lower Extremity with Contrast HISTORY: ulcer great toe COMPARISON: Comparison is made with the previous pulse volume recording waveforms and segmental pressure of bilateral lower extremities ankle brachial indices was performed on 01/11/2015 TECHNIQUE: Technique: CT angiography of the abdomen, pelvis and bilateral lower extremities performed in the arterial phase of enhancement. Coronal and sagittal reformats, and well as rotating MIP images of the vessels generated at the workstation. Intravenous contrast dose: 150 mL of Visipaque 320 intravenously Radiation dose: Total exam DLP = 2906.59 mGy-cm. This CT exam was performed using one or more of the following dose reduction techniques: Automated exposure control, adjustment of the mA and/or kV according to patient size, and/or use of iterative reconstruction technique. FINDINGS: CT ANGIOGRAPHY: ABDOMINAL AORTA:: The abdominal aorta is normal in caliber contains foci of atherosclerotic calcification and foci of mural thickening. MAJOR AORTIC BRANCHES: Celiac [place]: Unremarkable. Superior mesenteric artery: Patent. There are small foci of atherosclerotic calcification at the origin of the SMA Inferior mesenteric artery: Patent Renal arteries: The renal arteries are patent. Small foci of atherosclerotic calcification noted at the origin of the renal arteries and in the distal portion of the right renal artery. PELVIC ARTERIES: Right Common Iliac: Patent without significant stenosis. Foci of atherosclerotic calcification noted Right External Iliac: Patent without significant stenosis. Foci of atherosclerotic calcification distally noted Right Internal Iliac: Patent contains foci of atherosclerotic calcification and mural thickening. Left Common Iliac: Patent contains small foci of atherosclerotic calcification Left External Iliac: Patent contains foci of atherosclerotic Left Internal Iliac: Calcification RIGHT LOWER EXTREMITY ARTERIES: Right Common Femoral: Patent contains foci of atherosclerotic calcification Right Superficial Femoral: Patent. There is focal approximately 50 percent stenosis at the distal right superficial femoral artery. Diffuse atherosclerotic calcification and mural thickening noted. Right Profunda Femoris: Patent contains atherosclerotic calcifications Right Popliteal:Patent contains foci of the mild approximately 50 percent stenosis and diffuse atherosclerotic calcification and mural thickening. Right Anterior Tibial: Patent. Foci of atherosclerotic calcification noted at the proximal portion Right Tibioperoneal Trunk: Unremarkable. Right Posterior Tibial: Unremarkable. Right Peroneal: Unremarkable. Right dorsalis pedis : Unremarkable. LEFT LOWER EXTREMITY ARTERIES: Left Common Femoral: Unremarkable. Left Superficial Femoral: Patent contains foci of atherosclerotic calcification. There are foci of the mild to moderate approximately 60 percent stenosis noted at the distal portion of the left superficial femoral artery. Left Profunda Femoris: Patent contains foci of atherosclerotic calcification. Left Popliteal: Patent demonstrate diffuse atherosclerotic calcification and mural thickening. Left Anterior Tibial: Patent demonstrate diffuse atherosclerotic calcification. Left Tibioperoneal Trunk: Patent demonstrate diffuse atherosclerotic calcification. Left Posterior Tibial: Unremarkable. Left Peronea: Unremarkable. Left Dorsalis pedis: Unremarkable. NON-ANGIOGRAPHIC ASPECT OF THE EXAM: LOWER THORAX: Chronic lung changes are noted. No evidence of significant pleural effusion. The heart is enlarged. LIVER: Cirrhotic manifestation of the liver noted. There is suspicious for mass lesion at the inferior aspect of the right liver lobe. Further evaluation by ultrasound or MRI is suggested. GALLBLADDER AND BILE DUCTS: Gallstones are noted without evidence of acute cholecystitis. PANCREAS: Unremarkable. No gross lesion or ductal dilatation. SPLEEN: Unremarkable. ADRENALS: Nodular enlargement of the left adrenal gland is noted. KIDNEYS AND URETERS: Unremarkable. No hydronephrosis. No solid mass. STOMACH AND BOWEL: Unremarkable. No obstruction. No gross mural thickening. APPENDIX: Normal appendix. PERITONEUM: Unremarkable. No free fluid. No free air. LYMPH NODES: Unremarkable. No enlarged lymph nodes. BLADDER: Unremarkable. REPRODUCTIVE: Unremarkable. BONES: No acute fracture. OTHER FINDINGS: None. IMPRESSION: Moderate diffuse atherosclerotic disease. Foci of mild stenosis noted in both superficial femoral arteries. Three vessels runoff in both legs. Cirrhotic manifestation of the liver noted. Questionable mass lesion at the inferior aspect of the right liver lobe. Further evaluation by ultrasound or MRI is suggested. Gallstones without evidence of acute cholecystitis.
--- NOTE | 2018-05-05 15:29 | HP ---
HISTORY OF PRESENT ILLNESS: A 72-year-old male admitted to the hospital with chief complaint of leg swelling and pain in the foot, found to have osteomyelitis. PHYSICAL EXAMINATION: GENERAL: The patient is awake, alert, and oriented. VITAL SIGNS: Temperature 98, pulse 90. HEENT: Within normal limits. NECK: Supple. CHEST: Symmetrical. HEART: Regular. ABDOMEN: Soft. EXTREMITIES: No edema. IMPRESSION: Osteomyelitis. Patient bedrest, supportive care and antibiotics. Elliot Olivarez MD
--- NOTE | 2018-05-05 16:00 | CP.PCM.PN ---
Subjective - Date & Time of Evaluation Date of Evaluation: 05/05/18 Time of Evaluation: 09:00 - Subjective Subjective: chart reviewed patient examined no new complaints orders signed Objective - Vital Signs/Intake and Output Vital Signs (last 24 hours): Temp Pulse Resp BP Pulse Ox 98.1 F 72 20 151/89 H 97 05/05/18 15:59 05/05/18 15:59 05/05/18 15:59 05/05/18 15:59 05/05/18 15:59 Intake and Output: 05/05/18 05/05/18 06:59 18:59 Intake Total 890 Output Total 500 Balance 390 - Medications Medications: Current Medications Carvedilol (Coreg) 6.25 mg PO BID [facility] Last Admin: 05/05/18 09:45 Dose: 6.25 mg Cyclobenzaprine HCl (Flexeril) 10 mg PO TID [facility] Last Admin: 05/05/18 13:43 Dose: 10 mg Enoxaparin Sodium (Lovenox) 40 mg SC DAILY [facility] Last Admin: 05/05/18 09:46 Dose: 40 mg Glipizide (Glucotrol) 10 mg PO ACBD [facility] Last Admin: 05/05/18 08:22 Dose: 10 mg Hydrochlorothiazide (Hydrodiuril) 25 mg PO DAILY [facility] Last Admin: 05/05/18 09:45 Dose: 25 mg Vancomycin/Sodium Chloride (Vancomycin 1 Gm/Ns 200 Ml) 1 gm in 200 mls @ 133 mls/hr IVPB Q12H [facility]; Protocol Stop: 05/08/18 13:01 Last Admin: 05/05/18 12:10 Dose: 133 mls/hr Piperacillin Sod/Tazobactam (Sod 3.375 gm/ Sodium Chloride) 100 mls @ 200 mls/hr IVPB Q8H [facility]; Protocol Last Admin: 05/05/18 13:43 Dose: 200 mls/hr Ibuprofen (Motrin Tab) 600 mg PO Q6H PRN PRN Reason: Pain, moderate (4-7) Insulin Aspart (Novolog) 0 unit SC ACHS [facility]; Protocol Last Admin: 05/05/18 12:07 Dose: 2 units Lisinopril (Zestril) 5 mg PO DAILY [facility] Last Admin: 05/05/18 09:45 Dose: 5 mg Metformin HCl (Glucophage) 1,000 mg PO BIDPC [facility] Last Admin: 05/05/18 08:21 Dose: 1,000 mg Rosuvastatin Calcium (Crestor) 2.5 mg PO HS [facility] Last Admin: 05/04/18 21:33 Dose: 2.5 mg Sodium Hypochlorite (Dakins Solution 0.125%) 1 appl TOP DAILY [facility] Last Admin: 05/05/18 09:56 Dose: Not Given Spironolactone (Aldactone) 25 mg PO DAILY [facility] Last Admin: 05/05/18 09:45 Dose: 25 mg - Labs Labs: 05/05/18 08:15 05/05/18 08:15 - Constitutional Appears: Non-toxic, Chronically Ill - Head Exam Head Exam: ATRAUMATIC, NORMAL INSPECTION, NORMOCEPHALIC - Eye Exam Eye Exam: EOMI, Normal appearance, PERRL Pupil Exam: NORMAL ACCOMODATION, PERRL - ENT Exam ENT Exam: Mucous Membranes Moist, Normal Exam - Neck Exam Neck Exam: Full ROM, Normal Inspection. absent: Lymphadenopathy - Respiratory Exam Respiratory Exam: Clear to Ausculation Bilateral, NORMAL BREATHING PATTERN - Cardiovascular Exam Cardiovascular Exam: REGULAR RHYTHM, +S1, +S2. absent: Murmur - GI/Abdominal Exam GI & Abdominal Exam: Soft, Normal Bowel Sounds. absent: Tenderness - Rectal Exam Rectal Exam: Deferred - Exam Exam: NORMAL INSPECTION - Extremities Exam Extremities Exam: Full ROM, Normal Capillary Refill, Normal Inspection. absent: Joint Swelling, Pedal Edema - Back Exam Back Exam: NORMAL INSPECTION - Neurological Exam Neurological Exam: Alert, Awake, CN II-XII Intact, Normal Gait, Oriented x3 - Psychiatric Exam Psychiatric exam: Normal Affect, Normal Mood - Skin Skin Exam: Dry, Intact, Normal Color, Warm Assessment and Plan (1) Osteomyelitis of toe of right foot Status: Acute (2) CHF (congestive heart failure) Status: Acute (3) Cellulitis Status: Acute (4) Foot ulcer due to secondary DM Status: Acute (5) Hypertension Status: Acute - Assessment and Plan (Free Text) Assessment: OM right great toe- prox phalynx PVD on angio - await vascular follow up May need amputation of digit cont IV antibiotics for now
[2018-05-05] MEDS: Rosuvastatin Calcium 2.5 mg Tab PO SCH (21:21)
[2018-05-06] MEDS: NS IVPB SCH ×2 (00:11→14:03)
[2018-05-06] MEDS: VANCOMYCIN IVPB SCH ×2 (00:11→14:03)
[2018-05-06] MEDS: Piperacillin/Tazobact 3.375 GM in Sodium Chloride 100 ML IVPB SCH ×3 (05:29→21:27)
--- NOTE | 2018-05-06 07:12 | CP.PCM.PN ---
Subjective - Date & Time of Evaluation Date of Evaluation: 05/06/18 Time of Evaluation: 07:11 - Subjective Subjective: Medicine Progress Note: Patient seen and examined at bedside. Per nursing no acute events occurred overnight. Patient denies any fevers, chills, headaches, chest pain, abdominal pain, changes in vision, or any other complaints. Objective - Vital Signs/Intake and Output Vital Signs (last 24 hours): Temp Pulse Resp BP Pulse Ox 98.2 F 75 20 149/83 98 05/06/18 00:00 05/06/18 00:00 05/06/18 00:00 05/06/18 00:00 05/06/18 00:00 Intake and Output: 05/06/18 05/06/18 06:59 18:59 Intake Total 890 Balance 890 - Medications Medications: Current Medications Carvedilol (Coreg) 6.25 mg PO BID [facility] Last Admin: 05/05/18 17:15 Dose: 6.25 mg Cyclobenzaprine HCl (Flexeril) 10 mg PO TID [facility] Last Admin: 05/05/18 17:15 Dose: 10 mg Enoxaparin Sodium (Lovenox) 40 mg SC DAILY [facility] Last Admin: 05/05/18 09:46 Dose: 40 mg Glipizide (Glucotrol) 10 mg PO ACBD [facility] Last Admin: 05/05/18 17:15 Dose: 10 mg Hydrochlorothiazide (Hydrodiuril) 25 mg PO DAILY [facility] Last Admin: 05/05/18 09:45 Dose: 25 mg Vancomycin/Sodium Chloride (Vancomycin 1 Gm/Ns 200 Ml) 1 gm in 200 mls @ 133 mls/hr IVPB Q12H [facility]; Protocol Stop: 05/08/18 13:01 Last Admin: 05/06/18 00:11 Dose: 133 mls/hr Piperacillin Sod/Tazobactam (Sod 3.375 gm/ Sodium Chloride) 100 mls @ 200 mls/hr IVPB Q8H [facility]; Protocol Last Admin: 05/06/18 05:29 Dose: 200 mls/hr Ibuprofen (Motrin Tab) 600 mg PO Q6H PRN PRN Reason: Pain, moderate (4-7) Insulin Aspart (Novolog) 0 unit SC ACHS [facility]; Protocol Last Admin: 05/05/18 12:07 Dose: 2 units Lisinopril (Zestril) 5 mg PO DAILY [facility] Last Admin: 05/05/18 09:45 Dose: 5 mg Metformin HCl (Glucophage) 1,000 mg PO BIDPC [facility] Last Admin: 05/05/18 17:14 Dose: 1,000 mg Rosuvastatin Calcium (Crestor) 2.5 mg PO HS [facility] Last Admin: 05/05/18 21:21 Dose: 2.5 mg Sodium Hypochlorite (Dakins Solution 0.125%) 1 appl TOP DAILY [facility] Last Admin: 05/05/18 09:56 Dose: Not Given Spironolactone (Aldactone) 25 mg PO DAILY [facility] Last Admin: 05/05/18 09:45 Dose: 25 mg - Labs Labs: 05/05/18 08:15 05/05/18 08:15 - Head Exam Head Exam: ATRAUMATIC, NORMAL INSPECTION - Eye Exam Eye Exam: EOMI, Normal appearance Pupil Exam: NORMAL ACCOMODATION, PERRL - ENT Exam ENT Exam: Normal Exam - Neck Exam Neck Exam: Normal Inspection - Respiratory Exam Respiratory Exam: Clear to Ausculation Bilateral, NORMAL BREATHING PATTERN. absent: Stridor - Cardiovascular Exam Cardiovascular Exam: REGULAR RHYTHM, +S1, +S2 - GI/Abdominal Exam GI & Abdominal Exam: Soft, Normal Bowel Sounds - Back Exam Back Exam: NORMAL INSPECTION - Neurological Exam Neurological Exam: Alert, Awake, CN II-XII Intact, Oriented x3 - Psychiatric Exam Psychiatric exam: Normal Affect, Normal Mood - Skin Skin Exam: Dry, Intact, Normal Color, Warm Assessment and Plan - Assessment and Plan (Free Text) Plan: 72 year old male with a past medical history of diabetes, hypertension, chf, and cellulitis presents with toe bleeding. Plan: 1.Osteomyelitis -Foot xray:Findings suspicious for acute osteomyelitis 1st digit right foot. The finding is marked on the study for review. -ESR: 40 -Blood culture - x 3 days -Wound culture (+) Strep viridans -Infectious Disease consulted--> Help appreciated -Podiatry Dr. Guy consulted--> Help appreciated. Patient seen and examined Labs, vitals, chart reviewed (WBC=5.9) X-rays reviewed- erosions noted of the first proximal phalanx CRP 5.40, ESR 40 Vascular consulted - recommendations appreciated; CTA LE Wound culture taken -pending results Continue abx per Dr. Kohli infectious disease Patient may WBAT in surgical shoe NICHOLAS Gore Educated on proper hygiene and foot care, patient reports verbal understanding Discussed with patient regarding treatment plans of OM including rn long term care IV abx vs hallux amputation. Will continue to follow while in house -Cardiology Dr. Alvarez consulted :plan for peripheral angio to assess physiological significance of long moderate SFA lesion add plavix statins Medications: Vancomycin 1g IVPB Q12 [facility] Zosyn 3.375 gm IVPB Q8 [facility] 2. hx of Diabetes -Continue Metformin 1000 mg PO BID -Continue Glipizide 10mg PO ACBD [facility] 3. hx of hypertension -Continue Lisinopril 5mg PO Daily -Continue Coreg 6.25mg PO BID [facility] 4. hx of Hyperlipidemia -Continue Crestor 2.5mg PO HS [facility] 5. hx of Cirrhosis -Continue Aldactone 25mg PO DAILY ppx -Lovenox 40mg SC DAILY [facility] All management per . Gabe Taylor, PGY-2
[2018-05-06 07:31] LABS: ALB/GLOB RATIO 1.4 (1.0-2.1); ALBUMIN 3.9 g/dL (3.5-5.0); ALT/SGPT 6 U/L (21-72); AST/SGOT 26 U/L (17-59); BLOOD UREA NITROGEN 16 mg/dL (9-20); CALCIUM 9.3 mg/dl (8.6-10.4); GFR NON-AFRICAN AMERICAN > 60
--- NOTE | 2018-05-06 07:49 | CP.PCM.PN ---
<Jaret Bright - Last Filed: 05/06/18 09:04> Subjective - Date & Time of Evaluation Date of Evaluation: 05/06/18 Time of Evaluation: 07:46 - Subjective Subjective: Jaret Bright, PGY-1, Cardiology Progress Note for Dr. Alvarez Patient seen and evaluated at bedside. Patient had no acute overnight events. Patient denies any acute symptoms at this time. Objective - Vital Signs/Intake and Output Vital Signs (last 24 hours): Temp Pulse Resp BP Pulse Ox 98.2 F 75 20 149/83 98 05/06/18 00:00 05/06/18 00:00 05/06/18 00:00 05/06/18 00:00 05/06/18 00:00 Intake and Output: 05/06/18 05/06/18 06:59 18:59 Intake Total 890 Balance 890 - Medications Medications: Current Medications Carvedilol (Coreg) 6.25 mg PO BID [facility] Last Admin: 05/05/18 17:15 Dose: 6.25 mg Cyclobenzaprine HCl (Flexeril) 10 mg PO TID [facility] Last Admin: 05/05/18 17:15 Dose: 10 mg Enoxaparin Sodium (Lovenox) 40 mg SC DAILY [facility] Last Admin: 05/05/18 09:46 Dose: 40 mg Glipizide (Glucotrol) 10 mg PO ACBD [facility] Last Admin: 05/05/18 17:15 Dose: 10 mg Hydrochlorothiazide (Hydrodiuril) 25 mg PO DAILY [facility] Last Admin: 05/05/18 09:45 Dose: 25 mg Vancomycin/Sodium Chloride (Vancomycin 1 Gm/Ns 200 Ml) 1 gm in 200 mls @ 133 mls/hr IVPB Q12H [facility]; Protocol Stop: 05/08/18 13:01 Last Admin: 05/06/18 00:11 Dose: 133 mls/hr Piperacillin Sod/Tazobactam (Sod 3.375 gm/ Sodium Chloride) 100 mls @ 200 mls/hr IVPB Q8H [facility]; Protocol Last Admin: 05/06/18 05:29 Dose: 200 mls/hr Ibuprofen (Motrin Tab) 600 mg PO Q6H PRN PRN Reason: Pain, moderate (4-7) Insulin Aspart (Novolog) 0 unit SC ACHS [facility]; Protocol Last Admin: 05/05/18 12:07 Dose: 2 units Lisinopril (Zestril) 5 mg PO DAILY [facility] Last Admin: 05/05/18 09:45 Dose: 5 mg Metformin HCl (Glucophage) 1,000 mg PO BIDPC [facility] Last Admin: 05/05/18 17:14 Dose: 1,000 mg Rosuvastatin Calcium (Crestor) 2.5 mg PO HS [facility] Last Admin: 05/05/18 21:21 Dose: 2.5 mg Sodium Hypochlorite (Dakins Solution 0.125%) 1 appl TOP DAILY [facility] Last Admin: 05/05/18 09:56 Dose: Not Given Spironolactone (Aldactone) 25 mg PO DAILY [facility] Last Admin: 05/05/18 09:45 Dose: 25 mg - Labs Labs: 05/05/18 08:15 05/06/18 07:09 - Constitutional Appears: Well, Non-toxic, No Acute Distress - Head Exam Head Exam: ATRAUMATIC, NORMAL INSPECTION, NORMOCEPHALIC - Eye Exam Eye Exam: EOMI, PERRL - ENT Exam ENT Exam: Mucous Membranes Moist - Respiratory Exam Respiratory Exam: Clear to Ausculation Bilateral, NORMAL BREATHING PATTERN - Cardiovascular Exam Cardiovascular Exam: REGULAR RHYTHM, RRR, +S1, +S2 - GI/Abdominal Exam GI & Abdominal Exam: Soft, Normal Bowel Sounds. absent: Tenderness - Extremities Exam Extremities Exam: Full ROM Additional comments: bilateral lower extremity erythema and swelling. Hardened extremities, right foot wound - Back Exam Back Exam: NORMAL INSPECTION - Neurological Exam Neurological Exam: Alert, Awake, CN II-XII Intact, Oriented x3 - Skin Skin Exam: Dry, Intact, Normal Color Assessment and Plan (1) Osteomyelitis of toe of right foot Assessment & Plan: Foot X ray: findings suspicious for acute osteomyelitis of 1st digit right foot CTA of bilateral lower extremities: moderate diffuse atherosclerotic disease. Foci of mild stenosis in both SFA. Three vessel runoff in both legs. Cirrhotic manifestation of liver. Toe culture from 05/03/18: gram positive cocci Negative blood cultures from 05/02/18 Patient is considering moth exterminator antibiotics vs. amputation at this time. Will follow up with podiatry. As patient has moderate disease, will perform a peripheral angiogram tomorrow to evaluate for the gradient across the atherosclerotic lesions to evaluate for physiologically significant stenosis Continue with vancomycin and zosyn. Will consider aspirin for moderate PVD Status: Acute (2) Hyperlipidemia Assessment & Plan: Will follow up lipid panel Continue with rosuvastatin. Status: Acute (3) Diabetes Assessment & Plan: Will follow up HgbA1c Continue with metformin and sliding scale insulin, glipizide Status: Acute (4) Hypertension Assessment & Plan: Systolic blood pressure ranging from 130s to 150s over past 24 hours Continue with coreg, HCTZ, zestril, spironolactone Status: Acute <Earl Alvarez - Last Filed: 05/06/18 13:25> Objective - Vital Signs/Intake and Output Vital Signs (last 24 hours): Temp Pulse Resp BP Pulse Ox 97.9 F 69 20 158/94 H 97 05/06/18 08:13 05/06/18 08:13 05/06/18 08:13 05/06/18 08:13 05/06/18 08:13 Intake and Output: 05/06/18 05/06/18 06:59 18:59 Intake Total 890 Balance 890 - Medications Medications: Current Medications Carvedilol (Coreg) 6.25 mg PO BID [facility] Last Admin: 05/06/18 10:34 Dose: 6.25 mg Cyclobenzaprine HCl (Flexeril) 10 mg PO TID [facility] Last Admin: 05/06/18 10:34 Dose: 10 mg Enoxaparin Sodium (Lovenox) 40 mg SC DAILY [facility] Last Admin: 05/05/18 09:46 Dose: 40 mg Glipizide (Glucotrol) 10 mg PO ACBD [facility] Last Admin: 05/06/18 08:27 Dose: 10 mg Hydrochlorothiazide (Hydrodiuril) 25 mg PO DAILY [facility] Last Admin: 05/06/18 10:34 Dose: 25 mg Vancomycin/Sodium Chloride (Vancomycin 1 Gm/Ns 200 Ml) 1 gm in 200 mls @ 133 mls/hr IVPB Q12H [facility]; Protocol Stop: 05/08/18 13:01 Last Admin: 05/06/18 00:11 Dose: 133 mls/hr Piperacillin Sod/Tazobactam (Sod 3.375 gm/ Sodium Chloride) 100 mls @ 200 mls/hr IVPB Q8H [facility]; Protocol Last Admin: 05/06/18 05:29 Dose: 200 mls/hr Ibuprofen (Motrin Tab) 600 mg PO Q6H PRN PRN Reason: Pain, moderate (4-7) Insulin Aspart (Novolog) 0 unit SC ACHS [facility]; Protocol Last Admin: 05/06/18 08:27 Dose: 1 units Lisinopril (Zestril) 5 mg PO DAILY [facility] Last Admin: 05/06/18 10:34 Dose: 5 mg Metformin HCl (Glucophage) 1,000 mg PO BIDPC [facility] Last Admin: 05/06/18 10:33 Dose: 1,000 mg Rosuvastatin Calcium (Crestor) 2.5 mg PO HS [facility] Last Admin: 05/05/18 21:21 Dose: 2.5 mg Sodium Hypochlorite (Dakins Solution 0.125%) 1 appl TOP DAILY [facility] Last Admin: 05/06/18 10:35 Dose: Not Given Spironolactone (Aldactone) 25 mg PO DAILY [facility] Last Admin: 05/06/18 10:35 Dose: 25 mg - Labs Labs: 05/05/18 08:15 05/06/18 07:09 Assessment and Plan (1) Osteomyelitis of toe of right foot Status: Acute (2) CHF (congestive heart failure) Status: Acute (3) Cellulitis Status: Acute (4) Diabetes Status: Acute (5) Foot ulcer due to secondary DM Status: Acute (6) Hypertension Status: Acute Attending/Attestation - Attestation I have personally seen and examined this patient.: Yes I have fully participated in the care of the patient.: Yes I have reviewed all pertinent clinical information, including history, physical exam and plan: Yes Notes (Text): 05/06/18 13:25 plan for peripheral angio to assess physiological significance of long moderate SFA lesion add plavix statins
[2018-05-06] MEDS: (Novolog) Insulin Aspart, Recombinant 100 u/ml 10 ml vial SC SCH ×4 (08:27→22:00)
--- NOTE | 2018-05-06 12:40 | CP.PCM.PN ---
Subjective - Date & Time of Evaluation Date of Evaluation: 05/06/18 Time of Evaluation: 08:00 - Subjective Subjective: Foot X ray: findings suspicious for acute osteomyelitis of 1st digit right foot CTA of bilateral lower extremities: moderate diffuse atherosclerotic disease. Foci of mild stenosis in both SFA. Three vessel runoff in both legs. Cirrhotic manifestation of liver. Toe culture from 05/03/18: gram positive cocci Negative blood cultures from 05/02/18 Patient is considering superintendent container terminal antibiotics vs. amputation at this time Objective - Vital Signs/Intake and Output Vital Signs (last 24 hours): Temp Pulse Resp BP Pulse Ox 97.9 F 69 20 158/94 H 97 05/06/18 08:13 05/06/18 08:13 05/06/18 08:13 05/06/18 08:13 05/06/18 08:13 Intake and Output: 05/06/18 05/06/18 06:59 18:59 Intake Total 890 Balance 890 - Medications Medications: Current Medications Carvedilol (Coreg) 6.25 mg PO BID [facility] Last Admin: 05/06/18 10:34 Dose: 6.25 mg Cyclobenzaprine HCl (Flexeril) 10 mg PO TID [facility] Last Admin: 05/06/18 10:34 Dose: 10 mg Enoxaparin Sodium (Lovenox) 40 mg SC DAILY [facility] Last Admin: 05/05/18 09:46 Dose: 40 mg Glipizide (Glucotrol) 10 mg PO ACBD [facility] Last Admin: 05/06/18 08:27 Dose: 10 mg Hydrochlorothiazide (Hydrodiuril) 25 mg PO DAILY [facility] Last Admin: 05/06/18 10:34 Dose: 25 mg Vancomycin/Sodium Chloride (Vancomycin 1 Gm/Ns 200 Ml) 1 gm in 200 mls @ 133 m ls/hr IVPB Q12H [facility]; Protocol Stop: 05/08/18 13:01 Last Admin: 05/06/18 00:11 Dose: 133 mls/hr Piperacillin Sod/Tazobactam (Sod 3.375 gm/ Sodium Chloride) 100 mls @ 200 mls/hr IVPB Q8H [facility]; Protocol Last Admin: 05/06/18 05:29 Dose: 200 mls/hr Ibuprofen (Motrin Tab) 600 mg PO Q6H PRN PRN Reason: Pain, moderate (4-7) Insulin Aspart (Novolog) 0 unit SC ACHS [facility]; Protocol Last Admin: 05/06/18 08:27 Dose: 1 units Lisinopril (Zestril) 5 mg PO DAILY [facility] Last Admin: 05/06/18 10:34 Dose: 5 mg Metformin HCl (Glucophage) 1,000 mg PO BIDPC [facility] Last Admin: 05/06/18 10:33 Dose: 1,000 mg Rosuvastatin Calcium (Crestor) 2.5 mg PO HS [facility] Last Admin: 05/05/18 21:21 Dose: 2.5 mg Sodium Hypochlorite (Dakins Solution 0.125%) 1 appl TOP DAILY [facility] Last Admin: 05/06/18 10:35 Dose: Not Given Spironolactone (Aldactone) 25 mg PO DAILY [facility] Last Admin: 05/06/18 10:35 Dose: 25 mg - Labs Labs: 05/05/18 08:15 05/06/18 07:09 - Constitutional Appears: Non-toxic, Chronically Ill - Head Exam Head Exam: ATRAUMATIC, NORMAL INSPECTION, NORMOCEPHALIC - Eye Exam Eye Exam: EOMI, Normal appearance, PERRL Pupil Exam: NORMAL ACCOMODATION, PERRL - ENT Exam ENT Exam: Mucous Membranes Moist, Normal Exam - Neck Exam Neck Exam: Full ROM, Normal Inspection. absent: Lymphadenopathy - Respiratory Exam Respiratory Exam: Clear to Ausculation Bilateral, NORMAL BREATHING PATTERN - Cardiovascular Exam Cardiovascular Exam: REGULAR RHYTHM, +S1, +S2. absent: Murmur - GI/Abdominal Exam GI & Abdominal Exam: Soft, Normal Bowel Sounds. absent: Tenderness - Rectal Exam Rectal Exam: Deferred - Extremities Exam Extremities Exam: Full ROM, Normal Capillary Refill, Normal Inspection. absent: Joint Swelling, Pedal Edema - Back Exam Back Exam: NORMAL INSPECTION - Neurological Exam Neurological Exam: Alert, Awake, CN II-XII Intact, Normal Gait, Oriented x3 - Psychiatric Exam Psychiatric exam: Normal Affect, Normal Mood - Skin Skin Exam: Dry Additional comments: redness / swellin/ ulcer right greaT TOE Assessment and Plan (1) Osteomyelitis of toe of right foot Status: Acute (2) CHF (congestive heart failure) Status: Acute (3) Cellulitis Status: Acute (4) Foot ulcer due to secondary DM Status: Acute (5) Hypertension Status: Acute - Assessment and Plan (Free Text) Assessment: Foot X ray: findings suspicious for acute osteomyelitis of 1st digit right foot CTA of bilateral lower extremities: moderate diffuse atherosclerotic disease. F oci of mild stenosis in both SFA. Three vessel runoff in both legs. Cirrhotic manifestation of liver. Toe culture from 05/03/18: gram positive cocci Negative blood cultures from 05/02/18 Patient is considering superintendent container terminal antibiotics vs. amputation at this time
[2018-05-06 12:48] LABS: HDL CHOLESTEROL 59 mg/dL (30-70)
[2018-05-06 12:59] LABS: LDL CHOLESTEROL 62 mg/dL (0-129)
--- NOTE | 2018-05-06 18:01 | CP.PCM.PN ---
Subjective - Date & Time of Evaluation Date of Evaluation: 05/06/18 Time of Evaluation: 17:56 - Subjective Subjective: Podiatry Progress Note for Dr. Guy 72M seen and evaluated at bedside for right hallux wound wound underlying osteomyelitis. Patient is AAO x 3 and NAD, resting comfortably in bed. States that he has no pain to the wound at this time. Denies any acute overnight events or new pedal complaints. Denies any recent nausea, vomiting, fever, chills, chest pain, shortness of breath, or diarrhea. Objective - Vital Signs/Intake and Output Vital Signs (last 24 hours): Temp Pulse Resp BP Pulse Ox 97.9 F 88 20 153/91 H 97 05/06/18 15:55 05/06/18 15:55 05/06/18 15:55 05/06/18 15:55 05/06/18 15:55 Intake and Output: 05/06/18 05/06/18 06:59 18:59 Intake Total 890 800 Balance 890 800 - Medications Medications: Current Medications Carvedilol (Coreg) 6.25 mg PO BID [facility] Last Admin: 05/06/18 17:08 Dose: 6.25 mg Cyclobenzaprine HCl (Flexeril) 10 mg PO TID [facility] Last Admin: 05/06/18 17:09 Dose: 10 mg Enoxaparin Sodium (Lovenox) 40 mg SC DAILY [facility] Last Admin: 05/05/18 09:46 Dose: 40 mg Glipizide (Glucotrol) 10 mg PO ACBD [facility] Last Admin: 05/06/18 17:08 Dose: 10 mg Hydrochlorothiazide (Hydrodiuril) 25 mg PO DAILY [facility] Last Admin: 05/06/18 10:34 Dose: 25 mg Vancomycin/Sodium Chloride (Vancomycin 1 Gm/Ns 200 Ml) 1 gm in 200 mls @ 133 mls/hr IVPB Q12H [facility]; Protocol Stop: 05/08/18 13:01 Last Admin: 05/06/18 14:03 Dose: 133 mls/hr Piperacillin Sod/Tazobactam (Sod 3.375 gm/ Sodium Chloride) 100 mls @ 200 mls/hr IVPB Q8H [facility]; Protocol Last Admin: 05/06/18 14:02 Dose: 200 mls/hr Ibuprofen (Motrin Tab) 600 mg PO Q6H PRN PRN Reason: Pain, moderate (4-7) Insulin Aspart (Novolog) 0 unit SC ACHS [facility]; Protocol Last Admin: 05/06/18 17:09 Dose: Not Given Lisinopril (Zestril) 5 mg PO DAILY [facility] Last Admin: 05/06/18 10:34 Dose: 5 mg Metformin HCl (Glucophage) 1,000 mg PO BIDPC [facility] Last Admin: 05/06/18 17:08 Dose: 1,000 mg Rosuvastatin Calcium (Crestor) 2.5 mg PO HS [facility] Last Admin: 05/05/18 21:21 Dose: 2.5 mg Sodium Hypochlorite (Dakins Solution 0.125%) 1 appl TOP DAILY [facility] Last Admin: 05/06/18 10:35 Dose: Not Given Spironolactone (Aldactone) 25 mg PO DAILY [facility] Last Admin: 05/06/18 10:35 Dose: 25 mg - Labs Labs: 05/05/18 08:15 05/06/18 07:09 - Constitutional Appears: Well, Non-toxic, No Acute Distress - Extremities Exam Additional comments: LE focused exam: VASC: DP/PT pulses nonpalpable, temperature gradient warm to warm from proximal to distal WNL, CFT delayed >4 seconds to digits, non pitting edema noted to the R hallux ORTHO: No pain with palpation of ulceration at the hallux, no other gross deformities noted NEURO: Epicritic and protective sensation grossly diminished b/l DERM: unkempt lower extremity with hyperkertotic, scaly lesions to entire lower extremity; ulceration on dorsum of hallux measuring approximately 1 cm x 1cm x .3 cm with wound base mixture of granular and fibrotic tissue, erythema to the entire foot, odorous, no active drainage or bleeding noted, no purulence, no abscess or fluctanance, xerosis to entire lower extremity; hypertrophic, nail discoloration with subungal debris x10 - Neurological Exam Neurological Exam: Alert, Awake, Oriented x3 - Psychiatric Exam Psychiatric exam: Normal Affect, Normal Mood Assessment and Plan - Assessment and Plan (Free Text) Assessment: 72M seen and evaluated at bedside for right hallux wound wound underlying oste omyelitis Plan: Patient seen and evaluated with Dr. Guy Afebrile, absent leukocytosis Continue abx per ID Wound cx toe: Streptococcus Viridans R foot xray: Findings suspicious for acute osteomyelitis 1st digit right foot. The finding is marked on the study for review. F/u peripheral angiogram tomorrow Surgical intervention possible pending vascular studies/intervention Wound dressed with Dakins solution, zuleyka PETERSON Podiatry will continue to follow while patient in house
[2018-05-06] MEDS: Rosuvastatin Calcium 2.5 mg Tab PO SCH (23:29)
[2018-05-07] MEDS: NS IVPB SCH ×2 (00:32→14:26)
[2018-05-07] MEDS: VANCOMYCIN IVPB SCH ×2 (00:32→14:26)
[2018-05-07] MEDS: Piperacillin/Tazobact 3.375 GM in Sodium Chloride 100 ML IVPB SCH ×3 (05:07→21:23)
--- NOTE | 2018-05-07 07:39 | CP.PCM.PN ---
<Jaret Bright - Last Filed: 05/07/18 15:42> Subjective - Date & Time of Evaluation Date of Evaluation: 05/07/18 Time of Evaluation: 07:37 - Subjective Subjective: Jaret Bright, PGY-1, Cardiology Progress Note for Dr. Alvarez Patient seen and evaluated at bedside. Patient had no acute overnight events. Patient denies any acute symptoms at this time. Objective - Vital Signs/Intake and Output Vital Signs (last 24 hours): Temp Pulse Resp BP Pulse Ox 97.5 F L 91 H 20 149/76 99 05/07/18 00:00 05/07/18 00:00 05/07/18 00:00 05/07/18 00:00 05/07/18 00:00 Intake and Output: 05/07/18 05/07/18 06:59 18:59 Intake Total 350 Output Total 500 Balance -150 - Medications Medications: Current Medications Carvedilol (Coreg) 6.25 mg PO BID [facility] Last Admin: 05/06/18 17:08 Dose: 6.25 mg Cyclobenzaprine HCl (Flexeril) 10 mg PO TID [facility] Last Admin: 05/06/18 17:09 Dose: 10 mg Enoxaparin Sodium (Lovenox) 40 mg SC DAILY [facility] Last Admin: 05/05/18 09:46 Dose: 40 mg Glipizide (Glucotrol) 10 mg PO ACBD [facility] Last Admin: 05/06/18 17:08 Dose: 10 mg Hydrochlorothiazide (Hydrodiuril) 25 mg PO DAILY [facility] Last Admin: 05/06/18 10:34 Dose: 25 mg Vancomycin/Sodium Chloride (Vancomycin 1 Gm/Ns 200 Ml) 1 gm in 200 mls @ 133 mls/hr IVPB Q12H [facility]; Protocol Stop: 05/08/18 13:01 Last Admin: 05/07/18 00:32 Dose: 133 mls/hr Piperacillin Sod/Tazobactam (Sod 3.375 gm/ Sodium Chloride) 100 mls @ 200 mls/hr IVPB Q8H [facility]; Protocol Last Admin: 05/07/18 05:07 Dose: 200 mls/hr Ibuprofen (Motrin Tab) 600 mg PO Q6H PRN PRN Reason: Pain, moderate (4-7) Insulin Aspart (Novolog) 0 unit SC ACHS [facility]; Protocol Last Admin: 05/06/18 22:00 Dose: Not Given Lisinopril (Zestril) 5 mg PO DAILY [facility] Last Admin: 05/06/18 10:34 Dose: 5 mg Metformin HCl (Glucophage) 1,000 mg PO BIDPC [facility] Last Admin: 05/06/18 17:08 Dose: 1,000 mg Rosuvastatin Calcium (Crestor) 2.5 mg PO HS [facility] Last Admin: 05/06/18 23:29 Dose: Not Given Sodium Hypochlorite (Dakins Solution 0.125%) 1 appl TOP DAILY [facility] Last Admin: 05/06/18 10:35 Dose: Not Given Sodium Hypochlorite (Dakins Solution 0.125%) 0 appl TOP DAILY [facility] Spironolactone (Aldactone) 25 mg PO DAILY [facility] Last Admin: 05/06/18 10:35 Dose: 25 mg - Labs Labs: 05/05/18 08:15 05/06/18 07:09 - Constitutional Appears: Well, Non-toxic, No Acute Distress - Head Exam Head Exam: ATRAUMATIC, NORMAL INSPECTION, NORMOCEPHALIC - Eye Exam Eye Exam: EOMI, PERRL - ENT Exam ENT Exam: Mucous Membranes Moist - Respiratory Exam Respiratory Exam: Clear to Ausculation Bilateral, NORMAL BREATHING PATTERN - Cardiovascular Exam Cardiovascular Exam: REGULAR RHYTHM, RRR, +S1, +S2 - GI/Abdominal Exam GI & Abdominal Exam: Soft, Normal Bowel Sounds. absent: Tenderness - Extremities Exam Extremities Exam: Full ROM Additional comments: bilateral lower extremity erythema and swelling. Hardened extremities, right foot wound - Back Exam Back Exam: NORMAL INSPECTION - Neurological Exam Neurological Exam: Alert, Awake, CN II-XII Intact, Oriented x3 - Skin Skin Exam: Dry, Intact, Normal Color Assessment and Plan (1) Osteomyelitis of toe of right foot Assessment & Plan: Foot X ray: findings suspicious for acute osteomyelitis of 1st digit right foot CTA of bilateral lower extremities: moderate diffuse atherosclerotic disease. Foci of mild stenosis in both SFA. Three vessel runoff in both legs. Cirrhotic manifestation of liver. Toe culture from 05/03/18: gram positive cocci Negative blood cultures from 05/02/18 Patient is considering long term care pharmacist antibiotics vs. amputation at this time. Will follow up with podiatry. As patient has moderate disease, performed a peripheral angiogram today to evaluate for the gradient across the atherosclerotic lesions to evaluate for physiologically significant stenosis Continue with vancomycin and zosyn. Continue aspirin for moderate PVD. Started plavix Status: Acute (2) Hyperlipidemia Assessment & Plan: Will follow up lipid panel Continue with rosuvastatin. Status: Acute (3) Diabetes Assessment & Plan: Will follow up HgbA1c Continue with metformin and sliding scale insulin, glipizide Status: Acute (4) Hypertension Assessment & Plan: Systolic blood pressure ranging from 130s to 150s over past 24 hours Continue with coreg, HCTZ, zestril, spironolactone Status: Acute (5) CAD (coronary artery disease) Assessment & Plan: Continue aspirin, plavix, statin, lisinopril, and coreg Status: Acute <Earl Alvarez - Last Filed: 05/15/18 20:54> Objective - Vital Signs/Intake and Output Vital Signs (last 24 hours): Temp Pulse Resp BP Pulse Ox 98.1 F 69 20 123/69 97 05/15/18 16:00 05/15/18 16:00 05/15/18 16:00 05/15/18 16:00 05/15/18 16:00 Intake and Output: 05/15/18 05/16/18 18:59 06:59 Intake Total 450 Balance 450 - Labs Labs: 05/15/18 06:51 05/15/18 06:51 PT 11.4 SECONDS (9.7-12.2) 05/12/18 18:45 INR 1.0 05/12/18 18:45 APTT 37 SECONDS (21-34) H 05/12/18 18:45 Assessment and Plan (1) Osteomyelitis of toe of right foot Status: Acute (2) CHF (congestive heart failure) Status: Acute (3) Cellulitis Status: Acute (4) Diabetes Status: Acute (5) Foot ulcer due to secondary DM Status: Acute (6) Hypertension Status: Acute Attending/Attestation - Attestation I have personally seen and examined this patient.: Yes I have fully participated in the care of the patient.: Yes I have reviewed all pertinent clinical information, including history, physical exam and plan: Yes
[2018-05-07] MEDS: (Novolog) Insulin Aspart, Recombinant 100 u/ml 10 ml vial SC SCH ×4 (08:17→21:28)
--- NOTE | 2018-05-07 09:23 | CP.PCM.PN ---
Subjective - Date & Time of Evaluation Date of Evaluation: 05/07/18 Time of Evaluation: 09:23 - Subjective Subjective: Medicine Progress Note: Patient seen and examined at bedside. Per nursing no acute events occurred overnight. Patient denies any fevers, chills, headaches, chest pain, abdominal pain, changes in vision, or any other complaints. Objective - Vital Signs/Intake and Output Vital Signs (last 24 hours): Temp Pulse Resp BP Pulse Ox 97.6 F 74 20 164/81 H 98 05/07/18 07:54 05/07/18 07:54 05/07/18 07:54 05/07/18 07:54 05/07/18 07:54 Intake and Output: 05/07/18 05/07/18 06:59 18:59 Intake Total 350 Output Total 500 Balance -150 - Medications Medications: Current Medications Aspirin (Aspirin Chewable) 81 mg PO DAILY [facility] Carvedilol (Coreg) 6.25 mg PO BID [facility] Last Admin: 05/06/18 17:08 Dose: 6.25 mg Cyclobenzaprine HCl (Flexeril) 10 mg PO TID [facility] Last Admin: 05/06/18 17:09 Dose: 10 mg Enoxaparin Sodium (Lovenox) 40 mg SC DAILY [facility] Last Admin: 05/05/18 09:46 Dose: 40 mg Glipizide (Glucotrol) 10 mg PO ACBD [facility] Last Admin: 05/06/18 17:08 Dose: 10 mg Hydrochlorothiazide (Hydrodiuril) 25 mg PO DAILY [facility] Last Admin: 05/06/18 10:34 Dose: 25 mg Vancomycin/Sodium Chloride (Vancomycin 1 Gm/Ns 200 Ml) 1 gm in 200 mls @ 133 mls/hr IVPB Q12H [facility]; Protocol Stop: 05/08/18 13:01 Last Admin: 05/07/18 00:32 Dose: 133 mls/hr Piperacillin Sod/Tazobactam (Sod 3.375 gm/ Sodium Chloride) 100 mls @ 200 mls/hr IVPB Q8H [facility]; Protocol Last Admin: 05/07/18 05:07 Dose: 200 mls/hr Ibuprofen (Motrin Tab) 600 mg PO Q6H PRN PRN Reason: Pain, moderate (4-7) Insulin Aspart (Novolog) 0 unit SC ACHS [facility]; Protocol Last Admin: 05/07/18 08:17 Dose: Not Given Lisinopril (Zestril) 5 mg PO DAILY [facility] Last Admin: 05/06/18 10:34 Dose: 5 mg Metformin HCl (Glucophage) 1,000 mg PO BIDPC [facility] Last Admin: 05/06/18 17:08 Dose: 1,000 mg Rosuvastatin Calcium (Crestor) 2.5 mg PO HS [facility] Last Admin: 05/06/18 23:29 Dose: Not Given Sodium Hypochlorite (Dakins Solution 0.125%) 1 appl TOP DAILY [facility] Last Admin: 05/06/18 10:35 Dose: Not Given Sodium Hypochlorite (Dakins Solution 0.125%) 0 appl TOP DAILY [facility] Spironolactone (Aldactone) 25 mg PO DAILY [facility] Last Admin: 05/06/18 10:35 Dose: 25 mg - Labs Labs: 05/05/18 08:15 05/06/18 07:09 - Head Exam Head Exam: ATRAUMATIC, NORMAL INSPECTION - Eye Exam Eye Exam: EOMI, Normal appearance, PERRL Pupil Exam: NORMAL ACCOMODATION, PERRL. absent: Irregular, Unequal - ENT Exam ENT Exam: Mucous Membranes Moist, Normal Oropharynx - Respiratory Exam Respiratory Exam: Clear to Ausculation Bilateral, NORMAL BREATHING PATTERN. absent: Prolonged Expiratory Phase, Respiratory Distress - Cardiovascular Exam Cardiovascular Exam: REGULAR RHYTHM, +S1, +S2. absent: Rubs - GI/Abdominal Exam GI & Abdominal Exam: Soft, Normal Bowel Sounds. absent: Hyperactive Bowel Sounds - Extremities Exam Extremities Exam: Normal Inspection. absent: Pedal Edema - Back Exam Back Exam: NORMAL INSPECTION. absent: CVA tenderness (R), paraspinal tenderness - Neurological Exam Neurological Exam: Alert, Awake, CN II-XII Intact, Oriented x3 - Psychiatric Exam Psychiatric exam: Normal Affect, Normal Mood. absent: Depressed - Skin Skin Exam: Dry, Intact Assessment and Plan - Assessment and Plan (Free Text) Plan: 72 year old male with a past medical history of diabetes, hypertension, chf, and cellulitis presents with toe bleeding. Plan: 1.Osteomyelitis -Foot xray:Findings suspicious for acute osteomyelitis 1st digit right foot. The finding is marked on the study for review. -CTA of bilateral lower extremities: moderate diffuse atherosclerotic disease. Foci of mild stenosis in both SFA. Three vessel runoff in both legs. Cirrhotic manifestation of liver. -ESR: 40 -Blood culture - x 3 days -Wound culture (+) Strep viridans -Infectious Disease consulted--> Help appreciated -Podiatry Dr. Guy consulted--> Help appreciated. Patient seen and examined Labs, vitals, chart reviewed (WBC=5.9) X-rays reviewed- erosions noted of the first proximal phalanx CRP 5.40, ESR 40 Vascular consulted - recommendations appreciated; CTA LE Wound culture taken -pending results Continue abx per Dr. Kohli infectious disease Patient may WBAT in surgical shoe NICHOLAS Gore Educated on proper hygiene and foot care, patient reports verbal understanding Discussed with patient regarding treatment plans of OM including custodial IV abx vs hallux amputation. Will continue to follow while in house Peripheral angiogram ordered. Will f/u with results. -Cardiology Dr. Alvarez consulted :plan for peripheral angio to assess physiological significance of long moderate SFA lesion add plavix statins Medications: Vancomycin 1g IVPB Q12 [facility] Zosyn 3.375 gm IVPB Q8 [facility] 2. hx of Diabetes -Continue Metformin 1000 mg PO BID -Continue Glipizide 10mg PO ACBD [facility] R[facility] ACH[facility] 3. hx of hypertension -Continue Lisinopril 5mg PO Daily -Continue Coreg 6.25mg PO BID [facility] 4. hx of Hyperlipidemia -Continue Crestor 2.5mg PO HS [facility] 5. hx of Cirrhosis -Continue Aldactone 25mg PO DAILY 6.cAD -Aspirin 81mg PO DAILY -Plavix 75 mg PO DAILY ppx -Lovenox 40mg SC DAILY [facility] Dispo: Awaiting Peripheral angiogram. Will determine if patient needs custodial abx vs hallux amputation. All management per . Gabe Taylor, PGY-2
[2018-05-07 09:59] LABS: INR 1.1; PROTHROMBIN TIME 11.8 SECONDS (9.7-12.2)
--- NOTE | 2018-05-07 11:03 | CP.PCM.PN ---
Subjective - Date & Time of Evaluation Date of Evaluation: 05/07/18 Time of Evaluation: 11:01 - Subjective Subjective: Podiatry Progress Note for Dr. Guy 72M seen and evaluated at bedside for right hallux wound with probable underlying osteomyelitis. Patient is AAO x 3 and NAD, resting comfortably in bed. States that he has no pain to the wound at this time. Denies any acute overnight events or new pedal complaints. Patient is aware that he will be undergoing peripheral arteriogram today. Denies any recent nausea, vomiting, fever, chills, chest pain, shortness of breath, or diarrhea. Objective - Vital Signs/Intake and Output Vital Signs (last 24 hours): Temp Pulse Resp BP Pulse Ox 97.6 F 74 20 164/81 H 98 05/07/18 07:54 05/07/18 07:54 05/07/18 07:54 05/07/18 07:54 05/07/18 07:54 Intake and Output: 05/07/18 05/07/18 06:59 18:59 Intake Total 350 Output Total 500 Balance -150 - Medications Medications: Current Medications Aspirin (Aspirin Chewable) 81 mg PO DAILY [facility] Last Admin: 05/07/18 09:47 Dose: Not Given Carvedilol (Coreg) 6.25 mg PO BID [facility] Last Admin: 05/07/18 09:49 Dose: 6.25 mg Cyclobenzaprine HCl (Flexeril) 10 mg PO TID [facility] Last Admin: 05/07/18 10:43 Dose: Not Given Enoxaparin Sodium (Lovenox) 40 mg SC DAILY [facility] Last Admin: 05/05/18 09:46 Dose: 40 mg Glipizide (Glucotrol) 10 mg PO ACBD [facility] Last Admin: 05/07/18 09:47 Dose: Not Given Hydrochlorothiazide (Hydrodiuril) 25 mg PO DAILY [facility] Last Admin: 05/07/18 09:49 Dose: 25 mg Vancomycin/Sodium Chloride (Vancomycin 1 Gm/Ns 200 Ml) 1 gm in 200 mls @ 133 mls/hr IVPB Q12H [facility]; Protocol Stop: 05/08/18 13:01 Last Admin: 05/07/18 00:32 Dose: 133 mls/hr Piperacillin Sod/Tazobactam (Sod 3.375 gm/ Sodium Chloride) 100 mls @ 200 mls/hr IVPB Q8H [facility]; Protocol Last Admin: 05/07/18 05:07 Dose: 200 mls/hr Ibuprofen (Motrin Tab) 600 mg PO Q6H PRN PRN Reason: Pain, moderate (4-7) Insulin Aspart (Novolog) 0 unit SC ACHS [facility]; Protocol Last Admin: 05/07/18 08:17 Dose: Not Given Lisinopril (Zestril) 5 mg PO DAILY [facility] Last Admin: 05/07/18 09:50 Dose: 5 mg Metformin HCl (Glucophage) 1,000 mg PO BIDPC [facility] Last Admin: 05/07/18 09:47 Dose: Not Given Rosuvastatin Calcium (Crestor) 2.5 mg PO HS [facility] Last Admin: 05/06/18 23:29 Dose: Not Given Sodium Hypochlorite (Dakins Solution 0.125%) 1 appl TOP DAILY [facility] Last Admin: 05/06/18 10:35 Dose: Not Given Sodium Hypochlorite (Dakins Solution 0.125%) 0 appl TOP DAILY [facility] Last Admin: 05/07/18 09:51 Dose: 20 appl Spironolactone (Aldactone) 25 mg PO DAILY [facility] Last Admin: 05/07/18 09:49 Dose: 25 mg - Labs Labs: 05/05/18 08:15 05/06/18 07:09 PT 11.8 SECONDS (9.7-12.2) 05/07/18 09:49 INR 1.1 05/07/18 09:49 - Constitutional Appears: Well, Non-toxic, No Acute Distress - Extremities Exam Additional comments: LE focused exam: VASC: DP/PT pulses nonpalpable, temperature gradient warm to warm from proximal to distal WNL, CFT delayed >4 seconds to digits, non pitting edema noted to the R hallux ORTHO: No pain with palpation of ulceration at the hallux, no other gross deformities noted NEURO: Epicritic and protective sensation grossly diminished b/l DERM: unkempt lower extremity with hyperkertotic, scaly lesions to entire lower extremity; ulceration on dorsum of hallux measuring approximately 1 cm x 1cm x .3 cm with wound base mixture of granular and fibrotic tissue, fibrotic tissue increased over yesterday, erythema to the entire foot improving at this time, decreased malodor since yesterday, no active drainage or bleeding noted, no purulence, no abscess or fluctanance, xerosis to entire lower extremity; hypertrophic, nail discoloration with subungal debris x10 - Neurological Exam Neurological Exam: Alert, Awake, Oriented x3 - Psychiatric Exam Psychiatric exam: Normal Affect, Normal Mood Assessment and Plan - Assessment and Plan (Free Text) Assessment: 72M seen and evaluated at bedside for right hallux wound with probable underlying osteomyelitis Plan: Patient seen and evaluated Plan discussed with Dr. Guy Afebrile Continue abx per ID Wound cx toe: Streptococcus Viridans R foot xray: Findings suspicious for acute osteomyelitis 1st digit right foot. The finding is marked on the study for review. F/u peripheral arteriogram Surgical intervention possible pending vascular studies/intervention Wound dressed with Dakins solution, zuleyka PETERSON Podiatry will continue to follow while patient in house
--- NOTE | 2018-05-07 11:13 | VASCLAB ---
Date of service: 05/06/2018 STUDY DESCRIPTION: Lower Extremity Arterial Exam (PVR). HISTORY: right hallux ulcer with OM, r/o PVD PRIORS: None. TECHNIQUE: Pulse volume recording waveforms and segmental pressures of bilateral lower extremities at multiple levels were obtained. Ankle Brachial Indices (ABIs) were calculated. Report prepared by CAMPBELL Duval, RVT RIGHT LOWER EXTREMITY: * Brachial artery: Pressure - 156 mmHg. * High thigh: Pressure - mmHg: Ratio - : PVR waveform - Pulsatile * Low thigh: Pressure - mmHg: Ratio - PVR waveform: Pulsatile * Calf: Pressure - 220 mmHg: Ratio - NC PVR waveform: Pulsatile * Posterior tibial Artery: Pressure - 211 mmHg: Ratio - 1.35 PVR waveform: Pulsatile * Dorsalis pedis Artery: Pressure - 209 mmHg: Ratio - 1.34 PVR waveform: Pulsatile * Great toe: Pressure - mmHg: Ratio - PVR waveform: Ankle brachial index (GEORGETTE): 1.35 LEFT LOWER EXTREMITY: * Brachial artery: Pressure - 142 mmHg. * High thigh: Pressure - mmHg: Ratio - : PVR waveform - Pulsatile * Low thigh: Pressure - mmHg: Ratio - PVR waveform: Pulsatile * Calf: Pressure - 220 mmHg: Ratio - NC PVR waveform: Pulsatile * Posterior tibial Artery: Pressure - mmHg: Ratio - PVR waveform: Pulsatile * Dorsalis pedis Artery: Pressure - 220 mmHg: Ratio - NC PVR waveform: Pulsatile * Great toe: Pressure - mmHg: Ratio - PVR waveform: Ankle brachial index (GEORGETTE): NC OTHER FINDINGS: Right: Left: IMPRESSION: Right: The ankle pressure index of the right lower extremity is non-diagnostic due to possible arterial wall calcifications. Left: The ankle pressure index of the left lower extremity is non-diagnostic due to possible arterial wall calcifications.
[2018-05-07] MEDS ORDERED: Iodixanol 320 MG/ML 200 ML BOTTLE IV ONE (12:57)
[2018-05-07] MEDS ORDERED: Midazolam 2 MG/2 ML VIAL ONE (12:59)
[2018-05-07] MEDS ORDERED: Enalaprilat 2.5 MG/2 ML ONE (13:27)
[2018-05-07] MEDS ORDERED: Labetalol 5mg/ml (4ml) ONE (13:39)
[2018-05-08] MEDS: VANCOMYCIN IVPB SCH ×2 (00:20→12:13)
[2018-05-08] MEDS: NS IVPB SCH ×2 (00:20→12:13)
[2018-05-08] MEDS: Piperacillin/Tazobact 3.375 GM in Sodium Chloride 100 ML IVPB SCH ×3 (05:41→21:43)
[2018-05-08 07:01] LABS: BASO % 0.4 % (0.0-2.0); EOS # 0.1 K/uL (0.0-0.7); EOS % 1.8 % (0.0-4.0); HEMOGLOBIN 13.5 g/dL (12.0-18.0); LYMPH # 1.6 K/uL (1.0-4.3); LYMPH % 24.4 % (20.0-40.0); MEAN CELL VOLUME 89.4 fL (80.0-94.0); MEAN CORPUSCULAR HEMOGLOBIN 29.6 pg (27.0-31.0); MEAN CORPUSCULAR HGB CONC 33.1 g/dL (33.0-37.0); MEAN PLATELET VOLUME 9.4 fL (7.2-11.7); MONO # 0.9 K/uL (0.0-0.8); MONO % 13.1 % (0.0-10.0); NEUT % 60.3 % (50.0-75.0); RBC 4.55 Mil/uL (4.40-5.90); RED CELL DISTRIBUTION WIDTH 13.6 % (11.5-14.5); WHITE BLOOD COUNT 6.7 K/uL (4.8-10.8)
--- NOTE | 2018-05-08 07:04 | CP.PCM.PN ---
Subjective - Date & Time of Evaluation Date of Evaluation: 05/08/18 Time of Evaluation: 07:03 - Subjective Subjective: Medicine Progress Note - Dr Olivarez's service Patient seen and examined at bedside. Per nursing no acute events overnight. Patient is s/p angiogram yesterday. Tolerated the procedure well. States this is lower extremity swelling has improved. Objective - Vital Signs/Intake and Output Vital Signs (last 24 hours): Temp Pulse Resp BP Pulse Ox 97.9 F 71 20 107/63 98 05/08/18 00:00 05/08/18 00:00 05/08/18 00:00 05/08/18 00:00 05/08/18 00:00 Intake and Output: 05/08/18 05/08/18 06:59 18:59 Intake Total 350 Output Total 500 Balance -150 - Medications Medications: Current Medications Aspirin (Aspirin Chewable) 81 mg PO DAILY [facility] Last Admin: 05/07/18 09:47 Dose: Not Given Carvedilol (Coreg) 6.25 mg PO BID [facility] Last Admin: 05/07/18 09:49 Dose: 6.25 mg Clopidogrel Bisulfate (Plavix) 75 mg PO DAILY [facility] Cyclobenzaprine HCl (Flexeril) 10 mg PO TID [facility] Last Admin: 05/07/18 14:26 Dose: Not Given Enoxaparin Sodium (Lovenox) 40 mg SC DAILY [facility] Last Admin: 05/05/18 09:46 Dose: 40 mg Glipizide (Glucotrol) 10 mg PO ACBD [facility] Last Admin: 05/07/18 09:47 Dose: Not Given Hydrochlorothiazide (Hydrodiuril) 25 mg PO DAILY [facility] Last Admin: 05/07/18 09:49 Dose: 25 mg Vancomycin/Sodium Chloride (Vancomycin 1 Gm/Ns 200 Ml) 1 gm in 200 mls @ 133 mls/hr IVPB Q12H [facility]; Protocol Stop: 05/08/18 13:01 Last Admin: 05/08/18 00:20 Dose: 133 mls/hr Piperacillin Sod/Tazobactam (Sod 3.375 gm/ Sodium Chloride) 100 mls @ 200 mls/hr IVPB Q8H [facility]; Protocol Last Admin: 05/08/18 05:41 Dose: 200 mls/hr Ibuprofen (Motrin Tab) 600 mg PO Q6H PRN PRN Reason: Pain, moderate (4-7) Last Admin: 05/08/18 00:31 Dose: 600 mg Insulin Aspart (Novolog) 0 unit SC ACHS [facility]; Protocol Last Admin: 05/07/18 21:28 Dose: Not Given Lisinopril (Zestril) 5 mg PO DAILY [facility] Last Admin: 05/07/18 09:50 Dose: 5 mg Metformin HCl (Glucophage) 1,000 mg PO BIDPC [facility] Last Admin: 05/07/18 09:47 Dose: Not Given Rosuvastatin Calcium (Crestor) 2.5 mg PO HS [facility] Last Admin: 05/06/18 23:29 Dose: Not Given Sodium Hypochlorite (Dakins Solution 0.125%) 1 appl TOP DAILY [facility] Last Admin: 05/06/18 10:35 Dose: Not Given Sodium Hypochlorite (Dakins Solution 0.125%) 0 appl TOP DAILY [facility] Last Admin: 05/07/18 09:51 Dose: 20 appl Spironolactone (Aldactone) 25 mg PO DAILY [facility] Last Admin: 05/07/18 09:49 Dose: 25 mg - Labs Labs: 05/05/18 08:15 05/06/18 07:09 PT 11.8 SECONDS (9.7-12.2) 05/07/18 09:49 INR 1.1 05/07/18 09:49 - Additional Findings Additional findings: - Head Exam Head Exam: ATRAUMATIC, NORMAL INSPECTION - Eye Exam Eye Exam: EOMI, Normal appearance, PERRL Pupil Exam: NORMAL ACCOMODATION, PERRL. absent: Irregular, Unequal - ENT Exam ENT Exam: Mucous Membranes Moist, Normal Oropharynx - Respiratory Exam Respiratory Exam: Clear to Ausculation Bilateral, NORMAL BREATHING PATTERN. absent: Prolonged Expiratory Phase, Respiratory Distress - Cardiovascular Exam Cardiovascular Exam: REGULAR RHYTHM, +S1, +S2. absent: Rubs - GI/Abdominal Exam GI & Abdominal Exam: Soft, Normal Bowel Sounds. absent: Hyperactive Bowel Sounds - Extremities Exam Extremities Exam: Venous stasis skin changes, +edema bilaterally, +right foot dressing intact absent: Pedal Edema - Back Exam Back Exam: NORMAL INSPECTION. absent: CVA tenderness (R), paraspinal tenderness - Neurological Exam Neurological Exam: Alert, Awake, CN II-XII Intact, Oriented x3 - Psychiatric Exam Psychiatric exam: Normal Affect, Normal Mood. absent: Depressed - Skin Skin Exam: Dry, Intact Assessment and Plan - Assessment and Plan (Free Text) Assessment: 72 year old male with a past medical history of diabetes, hypertension, chf, and cellulitis presents with toe bleeding. Found to have osteomyeolitis Plan: Osteomyelitis of first digit of right foot -Stable, afebrile -S/P angiogram POD#1 -Patient is ambulating with surgical shoe -wound culture grew strep viridans -Antibiotics: Zosyn 3.375 Q8H IVPB, Vancomycin 1gm Q12 IVPB -Blood cultures showing no growth x 5 days -MRI ordered -ID on consult, Dr Kohli, help appreciated -Podiatry on consult, Dr Guy, help appreciated Imaging: -Foot xray:Findings suspicious for acute osteomyelitis 1st digit right foot. The finding is marked on the study for review. -CTA of bilateral lower extremities: moderate diffuse atherosclerotic disease. Foci of mild stenosis in both SFA. Three vessel runoff in both legs. Cirrhotic manifestation of liver. Peripheral Vascular Disease -S/P angiogram POD#1 that showed mild to moderate peripheral vascualr occlusive disease -Continue ASA 81mg PO daily, Plavix 75mg PO daily, Crestor 2.5mg PO HS Diabetes Mellitus -Continue Metformin 1000 mg PO BID -Continue Glipizide 10mg PO ACBD [facility] -ISS ACHS Hypertension -Continue Lisinopril 5mg PO Daily -Continue Coreg 6.25mg PO BID [facility] Hyperlipidemia -Continue Crestor 2.5mg PO HS [facility] Cirrhosis -Continue Aldactone 25mg PO DAILY [facility] -Aspirin 81mg PO DAILY -Plavix 75 mg PO DAILY GI/DVT ppx -Lovenox 40mg SC DAILY [facility] -No GI ppx indicated at this time DISPO: MRI of right lower extremity ordered. Continue IV antibiotics. Awaiting podiatry recommendations. Plan discussed with Dr Sher Byrd DO PGY-2
[2018-05-08 07:38] LABS: ALB/GLOB RATIO 1.4 (1.0-2.1); ALBUMIN 3.8 g/dL (3.5-5.0); ALT/SGPT 10 U/L (21-72); AST/SGOT 27 U/L (17-59); BLOOD UREA NITROGEN 23 mg/dL (9-20); CALCIUM 9.4 mg/dl (8.6-10.4); GFR NON-AFRICAN AMERICAN > 60
--- NOTE | 2018-05-08 07:44 | CARDCATH ---
DATE OF PROCEDURE: 05/07/2018 INDICATION: The patient is a 72-year-old male with history of hypertension, diabetes, and hyperlipidemia who presented with complaints of a right toe wound after he had a traumatic injury. The wound progressed very rapidly, and therefore he came to the emergency room where he was diagnosed with possible osteomyelitis. The patient underwent a CTA of the lower extremities, which showed moderate diffuse SFA disease. Therefore, he was brought to the label printer for further physiological assessment of his peripheral vascular disease. PROCEDURE PERFORMED: 1. Distal abdominal aortogram with bilateral iliac runoff. 2. Selective bilateral iliofemoral angiogram with runoff. 3. A 5-Macedonian left femoral arterial access. 4. Mynx closure device for hemostasis. ANGIOGRAPHIC FINDINGS: Left lower extremity showed left common iliac and external iliac were patent with 0% stenosis. Left SFA patent has a proximal 60%, mid 50% and distal 50% calcific stenosis. Profunda femoris patent. Popliteal has moderate 30% to 40% diffuse stenosis. Two-vessel runoff below the knee of anterior tibial artery and posterior tibial artery. Posterior tibial artery had a takeoff from the popliteal 40% nonobstructive stenosis. Right lower extremity angiographic findings: The right common iliac and external iliac were patent with 0% stenosis. Right SFA patent with proximal 30% and distal 40% calcific stenosis. Profunda femoris patent. Popliteal 0% stenosis. Two-vessel runoff anterior tibial artery and posterior tibial artery. Pullback gradients were calculated in the SFA lesions, which were physiologically nonsignificant. IMPRESSION: 1. [id number] peripheral vascular occlusive disease. 2. Distal microvascular ischemia. RECOMMENDATIONS: Aggressive medical management and risk factor modification. Give the patient on aspirin, Plavix, statins, and RUI inhibitors. The patient can be transferred back to his room in 1-hour time. Guideline directed therapy for peripheral vascular disease. Thank you Dr. Olivarez for letting me to participate and Dr. Guy for letting me to participate in the care of your patient. Earl Alvarez MD [facility]
[2018-05-08] MEDS: (Novolog) Insulin Aspart, Recombinant 100 u/ml 10 ml vial SC SCH ×5 (08:34→17:27)
--- NOTE | 2018-05-08 10:32 | CP.PCM.PN ---
<Jaret Bright - Last Filed: 05/08/18 14:31> Subjective - Date & Time of Evaluation Date of Evaluation: 05/08/18 Time of Evaluation: 10:27 - Subjective Subjective: Jaret Bright, PGY-1, Cardiology Progress Note for Dr. Alvarez Patient was seen and evaluated at bedside. Patient had no acute overnight events. Patient tolerated catheterization well yesterday. Patient has no acute complaints and reports improvement in lower extremity edema and pain. Objective - Vital Signs/Intake and Output Vital Signs (last 24 hours): Temp Pulse Resp BP Pulse Ox 98.6 F 70 20 110/67 95 05/08/18 07:00 05/08/18 07:00 05/08/18 07:00 05/08/18 07:00 05/08/18 07:00 Intake and Output: 05/08/18 05/08/18 06:59 18:59 Intake Total 350 500 Output Total 500 600 Balance -150 -100 - Medications Medications: Current Medications Aspirin (Aspirin Chewable) 81 mg PO DAILY [facility] Last Admin: 05/07/18 09:47 Dose: Not Given Carvedilol (Coreg) 6.25 mg PO BID [facility] Last Admin: 05/07/18 09:49 Dose: 6.25 mg Clopidogrel Bisulfate (Plavix) 75 mg PO DAILY [facility] Cyclobenzaprine HCl (Flexeril) 10 mg PO TID [facility] Last Admin: 05/07/18 14:26 Dose: Not Given Enoxaparin Sodium (Lovenox) 40 mg SC DAILY [facility] Last Admin: 05/05/18 09:46 Dose: 40 mg Glipizide (Glucotrol) 10 mg PO ACBD [facility] Last Admin: 05/08/18 08:36 Dose: 10 mg Hydrochlorothiazide (Hydrodiuril) 25 mg PO DAILY [facility] Last Admin: 05/07/18 09:49 Dose: 25 mg Vancomycin/Sodium Chloride (Vancomycin 1 Gm/Ns 200 Ml) 1 gm in 200 mls @ 133 mls/hr IVPB Q12H [facility]; Protocol Stop: 05/08/18 13:01 Last Admin: 05/08/18 00:20 Dose: 133 mls/hr Piperacillin Sod/Tazobactam (Sod 3.375 gm/ Sodium Chloride) 100 mls @ 200 mls/hr IVPB Q8H [facility]; Protocol Last Admin: 05/08/18 05:41 Dose: 200 mls/hr Ibuprofen (Motrin Tab) 600 mg PO Q6H PRN PRN Reason: Pain, moderate (4-7) Last Admin: 05/08/18 00:31 Dose: 600 mg Insulin Aspart (Novolog) 0 unit SC ACHS [facility]; Protocol Last Admin: 05/08/18 08:38 Dose: 1 units Lisinopril (Zestril) 5 mg PO DAILY [facility] Last Admin: 05/07/18 09:50 Dose: 5 mg Metformin HCl (Glucophage) 1,000 mg PO BIDPC [facility] Last Admin: 05/08/18 08:36 Dose: 1,000 mg Rosuvastatin Calcium (Crestor) 2.5 mg PO HS [facility] Last Admin: 05/06/18 23:29 Dose: Not Given Sodium Hypochlorite (Dakins Solution 0.125%) 1 appl TOP DAILY [facility] Last Admin: 05/06/18 10:35 Dose: Not Given Sodium Hypochlorite (Dakins Solution 0.125%) 0 appl TOP DAILY [facility] Last Admin: 05/07/18 09:51 Dose: 20 appl Spironolactone (Aldactone) 25 mg PO DAILY [facility] Last Admin: 05/07/18 09:49 Dose: 25 mg - Labs Labs: 05/08/18 06:30 05/08/18 06:30 PT 11.8 SECONDS (9.7-12.2) 05/07/18 09:49 INR 1.1 05/07/18 09:49 - Constitutional Appears: Well, Non-toxic, No Acute Distress - Head Exam Head Exam: ATRAUMATIC, NORMAL INSPECTION, NORMOCEPHALIC - Eye Exam Eye Exam: EOMI, PERRL - ENT Exam ENT Exam: Mucous Membranes Moist - Respiratory Exam Respiratory Exam: Clear to Ausculation Bilateral, NORMAL BREATHING PATTERN - Cardiovascular Exam Cardiovascular Exam: REGULAR RHYTHM, RRR, +S1, +S2 - GI/Abdominal Exam GI & Abdominal Exam: Soft, Normal Bowel Sounds. absent: Tenderness - Extremities Exam Extremities Exam: Full ROM Additional comments: bilateral lower extremity erythema and swelling. Hardened extremities, right foot wound - Back Exam Back Exam: NORMAL INSPECTION - Neurological Exam Neurological Exam: Alert, Awake, CN II-XII Intact, Oriented x3 - Skin Skin Exam: Dry, Intact, Normal Color Assessment and Plan (1) Osteomyelitis of toe of right foot Assessment & Plan: Foot X ray: findings suspicious for acute osteomyelitis of 1st digit right foot CTA of bilateral lower extremities: moderate diffuse atherosclerotic disease. Foci of mild stenosis in both SFA. Three vessel runoff in both legs. Cirrhotic manifestation of liver. Toe culture from 05/03/18: gram positive cocci Negative blood cultures from 05/02/18 Peripheral angiogram 05/07: Left SFA has proximal 60%, mid 50%, and distal 50% calcific stenosis. Profunda femoris was patent. Popliteal had moderate 30-40% stenosis, two vessel runoff below the knee of anterior tibial artery and posterial tibial artery. Right SFA patient with proximal 30% and distal 40% calcific stenosis. Two vessel runoff AT and PT artery. Mild to moderate PVD obs erved. Distal microvascular ischemia observed. Continue with vancomycin and zosyn. Status: Acute (2) Hyperlipidemia Assessment & Plan: T Continue with rosuvastatin. Status: Acute (3) Diabetes Assessment & Plan: HgbA1c: 10.2 Continue with metformin and sliding scale insulin, glipizide Status: Acute (4) Hypertension Assessment & Plan: Systolic blood pressure ranging from 100-160s over past 24 hours Continue with coreg, HCTZ, zestril, spironolactone Status: Acute (5) CAD (coronary artery disease) Assessment & Plan: Continue aspirin, plavix, statin, lisinopril, and coreg Status: Acute <Earl Alvarez - Last Filed: 05/15/18 21:00> Objective - Vital Signs/Intake and Output Vital Signs (last 24 hours): Temp Pulse Resp BP Pulse Ox 98.1 F 69 20 123/69 97 05/15/18 16:00 05/15/18 16:00 05/15/18 16:00 05/15/18 16:00 05/15/18 16:00 Intake and Output: 05/15/18 05/16/18 18:59 06:59 Intake Total 450 Balance 450 - Labs Labs: 05/15/18 06:51 05/15/18 06:51 PT 11.4 SECONDS (9.7-12.2) 05/12/18 18:45 INR 1.0 05/12/18 18:45 APTT 37 SECONDS (21-34) H 05/12/18 18:45 Assessment and Plan (1) Osteomyelitis of toe of right foot Status: Acute (2) CHF (congestive heart failure) Status: Acute (3) Cellulitis Status: Acute (4) Diabetes Status: Acute (5) Foot ulcer due to secondary DM Status: Acute (6) Hypertension Status: Acute Attending/Attestation - Attestation I have personally seen and examined this patient.: Yes I have fully participated in the care of the patient.: Yes I have reviewed all pertinent clinical information, including history, physical exam and plan: Yes
--- NOTE | 2018-05-08 16:18 | MRI ---
Date of service: 05/08/2018 PROCEDURE: MRI Right Foot HISTORY: Pain. COMPARISON: None available. TECHNIQUE: Multiecho multiplanar sequences were performed through the right foot without the use of intravenous contrast. FINDINGS: BONES: Abnormal Marrow signal is appreciated at the entire distal phalanx great toe and majority of the proximal phalanx great toe but sparing the base. The findings are highly suggestive of osteomyelitis though no bony destruction is appreciable at this time. Similar changes affect the majority of the proximal phalanx 2nd digit as well. MUSCLES: Moderate edema is appreciated in the visualized plantar foot muscles. SOFT TISSUES: No definite abscess formation. LISFRANC LIGAMENT: Normal. PLANTAR PLATE: Normal. EXTENSOR TENDONS: Motion artifacts obscure extension tension though no gross tear suspected. FLEXOR TENDONS: No definite tear identified. OTHER FINDINGS: None. IMPRESSION: Findings compatible with osteomyelitis of the great toe including both proximal and distal phalanges as well as proximal phalanx 2nd digit. Multifocal myositis is seen in the plantar foot deep musculature primarily at mid foot distribution.
--- NOTE | 2018-05-08 17:16 | CP.PCM.PN ---
Subjective - Date & Time of Evaluation Date of Evaluation: 05/08/18 Time of Evaluation: 07:00 - Subjective Subjective: events noted leaning towards IV rx for salvage rx Objective - Vital Signs/Intake and Output Vital Signs (last 24 hours): Temp Pulse Resp BP Pulse Ox 97.6 F 78 20 110/64 97 05/08/18 16:00 05/08/18 16:00 05/08/18 16:00 05/08/18 16:00 05/08/18 16:00 Intake and Output: 05/08/18 05/08/18 06:59 18:59 Intake Total 350 1040 Output Total 500 1400 Balance -150 -360 - Medications Medications: Current Medications Aspirin (Aspirin Chewable) 81 mg PO DAILY [facility] Last Admin: 05/08/18 13:19 Dose: 81 mg Carvedilol (Coreg) 6.25 mg PO BID [facility] Last Admin: 05/08/18 10:42 Dose: 6.25 mg Clopidogrel Bisulfate (Plavix) 75 mg PO DAILY [facility] Last Admin: 05/08/18 10:42 Dose: 75 mg Cyclobenzaprine HCl (Flexeril) 10 mg PO TID [facility] Last Admin: 05/08/18 14:33 Dose: 10 mg Enoxaparin Sodium (Lovenox) 40 mg SC DAILY [facility] Last Admin: 05/05/18 09:46 Dose: 40 mg Glipizide (Glucotrol) 10 mg PO ACBD [facility] Last Admin: 05/08/18 08:36 Dose: 10 mg Hydrochlorothiazide (Hydrodiuril) 25 mg PO DAILY [facility] Last Admin: 05/08/18 10:41 Dose: 25 mg Vancomycin/Sodium Chloride (Vancomycin 1 Gm/Ns 200 Ml) 1 gm in 200 mls @ 133 mls/hr IVPB Q12H [facility]; Protocol Last Admin: 05/08/18 12:13 Dose: 133 mls/hr Piperacillin Sod/Tazobactam (Sod 3.375 gm/ Sodium Chloride) 100 mls @ 200 mls/ hr IVPB Q8H [facility]; Protocol Last Admin: 05/08/18 14:31 Dose: 200 mls/hr Ibuprofen (Motrin Tab) 600 mg PO Q6H PRN PRN Reason: Pain, moderate (4-7) Last Admin: 05/08/18 00:31 Dose: 600 mg Insulin Aspart (Novolog) 0 unit SC ACHS [facility]; Protocol Last Admin: 05/08/18 12:19 Dose: Not Given Lisinopril (Zestril) 5 mg PO DAILY [facility] Last Admin: 05/08/18 10:41 Dose: 5 mg Metformin HCl (Glucophage) 1,000 mg PO BIDPC [facility] Last Admin: 05/08/18 08:36 Dose: 1,000 mg Rosuvastatin Calcium (Crestor) 2.5 mg PO HS [facility] Last Admin: 05/06/18 23:29 Dose: Not Given Sodium Hypochlorite (Dakins Solution 0.125%) 0 appl TOP DAILY [facility] Last Admin: 05/08/18 13:16 Dose: 20 appl Spironolactone (Aldactone) 25 mg PO DAILY [facility] Last Admin: 05/08/18 10:41 Dose: 25 mg - Labs Labs: 05/08/18 06:30 05/08/18 06:30 PT 11.8 SECONDS (9.7-12.2) 05/07/18 09:49 INR 1.1 05/07/18 09:49 - Constitutional Appears: No Acute Distress, Chronically Ill - Head Exam Head Exam: ATRAUMATIC, NORMAL INSPECTION, NORMOCEPHALIC - Eye Exam Eye Exam: EOMI, Normal appearance, PERRL Pupil Exam: NORMAL ACCOMODATION, PERRL - ENT Exam ENT Exam: Mucous Membranes Moist, Normal Exam - Neck Exam Neck Exam: Full ROM, Normal Inspection. absent: Lymphadenopathy - Respiratory Exam Respiratory Exam: Clear to Ausculation Bilateral, NORMAL BREATHING PATTERN - Cardiovascular Exam Cardiovascular Exam: REGULAR RHYTHM, +S1, +S2. absent: Murmur - GI/Abdominal Exam GI & Abdominal Exam: Soft, Normal Bowel Sounds. absent: Tenderness - Rectal Exam Rectal Exam: Deferred - Exam Exam: NORMAL INSPECTION - Extremities Exam Extremities Exam: Full ROM, Normal Capillary Refill, Normal Inspection. absent: Joint Swelling, Pedal Edema - Back Exam Back Exam: NORMAL INSPECTION - Neurological Exam Neurological Exam: Alert, Awake, CN II-XII Intact, Normal Gait, Oriented x3 - Psychiatric Exam Psychiatric exam: Normal Affect, Normal Mood - Skin Skin Exam: Dry, Intact, Normal Color, Warm Assessment and Plan (1) Osteomyelitis of toe of right foot Status: Acute (2) CHF (congestive heart failure) Status: Acute (3) Cellulitis Status: Acute (4) Foot ulcer due to secondary DM Status: Acute (5) Hypertension Status: Acute - Assessment and Plan (Free Text) Assessment: cont iv antibiotics and wound care
--- NOTE | 2018-05-08 17:43 | CP.PCM.PN ---
Subjective - Date & Time of Evaluation Date of Evaluation: 05/08/18 Time of Evaluation: 17:40 - Subjective Subjective: Podiatry Progress Note for Dr. Guy 72M seen and evaluated at bedside for right hallux wound with osteomyelitis of hallux and second digit proximal phalanx base. Patient is AAO x 3 and NAD, resting comfortably in bed. States that he has no pain to the wound at this time. Denies any acute overnight events or new pedal complaints.Denies any recent nausea, vomiting, fever, chills, chest pain, shortness of breath, or diarrhea. Objective - Vital Signs/Intake and Output Vital Signs (last 24 hours): Temp Pulse Resp BP Pulse Ox 97.6 F 78 20 110/64 97 05/08/18 16:00 05/08/18 16:00 05/08/18 16:00 05/08/18 16:00 05/08/18 16:00 Intake and Output: 05/08/18 05/08/18 06:59 18:59 Intake Total 350 1040 Output Total 500 1400 Balance -150 -360 - Medications Medications: Current Medications Aspirin (Aspirin Chewable) 81 mg PO DAILY [facility] Last Admin: 05/08/18 13:19 Dose: 81 mg Carvedilol (Coreg) 6.25 mg PO BID [facility] Last Admin: 05/08/18 17:24 Dose: 6.25 mg Clopidogrel Bisulfate (Plavix) 75 mg PO DAILY [facility] Last Admin: 05/08/18 10:42 Dose: 75 mg Cyclobenzaprine HCl (Flexeril) 10 mg PO TID [facility] Last Admin: 05/08/18 17:23 Dose: 10 mg Enoxaparin Sodium (Lovenox) 40 mg SC DAILY [facility] Last Admin: 05/05/18 09:46 Dose: 40 mg Glipizide (Glucotrol) 10 mg PO ACBD [facility] Last Admin: 05/08/18 17:28 Dose: 10 mg Hydrochlorothiazide (Hydrodiuril) 25 mg PO DAILY [facility] Last Admin: 05/08/18 10:41 Dose: 25 mg Vancomycin/Sodium Chloride (Vancomycin 1 Gm/Ns 200 Ml) 1 gm in 200 mls @ 133 mls/hr IVPB Q12H [facility]; Protocol Last Admin: 05/08/18 12:13 Dose: 133 mls/hr Piperacillin Sod/Tazobactam (Sod 3.375 gm/ Sodium Chloride) 100 mls @ 200 mls/hr IVPB Q8H [facility]; Protocol Last Admin: 05/08/18 14:31 Dose: 200 mls/hr Ibuprofen (Motrin Tab) 600 mg PO Q6H PRN PRN Reason: Pain, moderate (4-7) Last Admin: 05/08/18 00:31 Dose: 600 mg Insulin Aspart (Novolog) 0 unit SC ACHS [facility]; Protocol Last Admin: 05/08/18 17:27 Dose: 1 units Lisinopril (Zestril) 5 mg PO DAILY [facility] Last Admin: 05/08/18 10:41 Dose: 5 mg Metformin HCl (Glucophage) 1,000 mg PO BIDPC [facility] Last Admin: 05/08/18 17:28 Dose: 1,000 mg Rosuvastatin Calcium (Crestor) 2.5 mg PO HS [facility] Last Admin: 05/06/18 23:29 Dose: Not Given Sodium Hypochlorite (Dakins Solution 0.125%) 0 appl TOP DAILY [facility] Last Admin: 05/08/18 13:16 Dose: 20 appl Spironolactone (Aldactone) 25 mg PO DAILY [facility] Last Admin: 05/08/18 10:41 Dose: 25 mg - Labs Labs: 05/08/18 06:30 05/08/18 06:30 PT 11.8 SECONDS (9.7-12.2) 05/07/18 09:49 INR 1.1 05/07/18 09:49 - Constitutional Appears: Well, Non-toxic, No Acute Distress - Extremities Exam Additional comments: LE focused exam: VASC: DP/PT pulses nonpalpable, temperature gradient warm to warm from proximal to distal WNL, CFT delayed >4 seconds to digits, non pitting edema noted to the R hallux ORTHO: No pain with palpation of ulceration at the hallux, no other gross deformities noted NEURO: Epicritic and protective sensation grossly diminished b/l DERM: unkempt lower extremity with hyperkertotic, scaly lesions to entire lower extremity; ulceration on dorsum of hallux measuring approximately 1 cm x 1cm x .3 cm with wound base mixture of granular and fibrotic tissue, fibrotic tissue equal to yesterday, no erythema noted to foot at this time, decreased malodor since yesterday, no active drainage or bleeding noted, no purulence, no abscess or fluctanance, xerosis to entire lower extremity; hypertrophic, nail discoloration with subungal debris x10 - Neurological Exam Neurological Exam: Alert, Awake, Oriented x3 - Psychiatric Exam Psychiatric exam: Normal Affect, Normal Mood Assessment and Plan - Assessment and Plan (Free Text) Assessment: 72M seen and evaluated at bedside for right hallux wound with osteomyelitis of hallux and second digit proximal phalanx base Plan: Patient seen and evaluated with Dr. Guy Afebrile, absent leukocytosis Continue abx per ID Wound cx toe: Streptococcus Viridans R foot xray: Findings suspicious for acute osteomyelitis 1st digit right foot. The finding is marked on the study for review. MRI highly suspicious for osteomyelitis of hallux distal and proximal phalanx as well as second digit proximal phalanx Vascular workup appreciated Will discuss surgical intervention with Dr. Guy Wound dressed with Dakins solution, zuleyka PETERSON Podiatry will continue to follow while patient in house
[2018-05-08] MEDS: Rosuvastatin Calcium 2.5 mg Tab PO SCH (21:32)
[2018-05-09] MEDS: VANCOMYCIN IVPB SCH (00:10)
[2018-05-09] MEDS: NS IVPB SCH (00:10)
[2018-05-09] MEDS: Piperacillin/Tazobact 3.375 GM in Sodium Chloride 100 ML IVPB SCH ×3 (05:50→22:03)
[2018-05-09 06:22] LABS: BASO % 0.7 % (0.0-2.0); EOS # 0.1 K/uL (0.0-0.7); HEMOGLOBIN 13.2 g/dL (12.0-18.0); LYMPH # 0.5 K/uL (1.0-4.3); LYMPH % 9.8 % (20.0-40.0); MEAN CORPUSCULAR HEMOGLOBIN 29.7 pg (27.0-31.0); MEAN CORPUSCULAR HGB CONC 33.7 g/dL (33.0-37.0); MEAN PLATELET VOLUME 9.4 fL (7.2-11.7); MONO # 0.8 K/uL (0.0-0.8); MONO % 14.6 % (0.0-10.0); NEUT # 4.1 K/uL (1.8-7.0); NEUT % 73.9 % (50.0-75.0); PLATELET COUNT 138 K/uL (130-400); RBC 4.44 Mil/uL (4.40-5.90); RED CELL DISTRIBUTION WIDTH 13.7 % (11.5-14.5); WHITE BLOOD COUNT 5.5 K/uL (4.8-10.8)
[2018-05-09 06:39] LABS: ALB/GLOB RATIO 1.4 (1.0-2.1); ALBUMIN 3.8 g/dL (3.5-5.0); ALT/SGPT 20 U/L (21-72); AST/SGOT 28 U/L (17-59); BLOOD UREA NITROGEN 24 mg/dL (9-20); GFR NON-AFRICAN AMERICAN > 60
[2018-05-09] MEDS: (Novolog) Insulin Aspart, Recombinant 100 u/ml 10 ml vial SC SCH ×4 (08:30→22:01)
[2018-05-09 08:35] LABS: BANDS 1 % (0-2); LYMPHOCYTE 11 % (20-40); MONOCYTE 7 % (0-10); NEUTROPHIL 81 % (50-75); PLATELET ESTIMATE NORMAL (NORMAL); TOTAL CELLS COUNTED 100
--- NOTE | 2018-05-09 08:59 | CP.PCM.PN ---
<Jaret Bright - Last Filed: 05/09/18 08:57> Subjective - Date & Time of Evaluation Date of Evaluation: 05/09/18 Time of Evaluation: 08:57 - Subjective Subjective: Jaret Bright, PGY-1, Cardiology Progress Note for Dr. Alvarez Patient was seen and evaluated at bedside. Patient had no acute overnight events. Patient has no acute complaints and reports improvement in lower extremity edema and pain. Objective - Vital Signs/Intake and Output Vital Signs (last 24 hours): Temp Pulse Resp BP Pulse Ox 99.1 F 81 20 111/70 97 05/09/18 07:05 05/09/18 07:05 05/09/18 07:05 05/09/18 07:05 05/09/18 07:05 Intake and Output: 05/09/18 05/09/18 06:59 18:59 Intake Total 600 300 Output Total 700 300 Balance -100 0 - Medications Medications: Current Medications Aspirin (Aspirin Chewable) 81 mg PO DAILY [facility] Last Admin: 05/08/18 13:19 Dose: 81 mg Carvedilol (Coreg) 6.25 mg PO BID [facility] Last Admin: 05/08/18 17:24 Dose: 6.25 mg Clopidogrel Bisulfate (Plavix) 75 mg PO DAILY [facility] Last Admin: 05/08/18 10:42 Dose: 75 mg Cyclobenzaprine HCl (Flexeril) 10 mg PO TID [facility] Last Admin: 05/08/18 17:23 Dose: 10 mg Enoxaparin Sodium (Lovenox) 40 mg SC DAILY [facility] Last Admin: 05/05/18 09:46 Dose: 40 mg Glipizide (Glucotrol) 10 mg PO ACBD [facility] Last Admin: 05/09/18 08:30 Dose: 10 mg Hydrochlorothiazide (Hydrodiuril) 25 mg PO DAILY [facility] Last Admin: 05/08/18 10:41 Dose: 25 mg Piperacillin Sod/Tazobactam (Sod 3.375 gm/ Sodium Chloride) 100 mls @ 200 mls/h r IVPB Q8H [facility]; Protocol Last Admin: 05/09/18 05:50 Dose: 200 mls/hr Ibuprofen (Motrin Tab) 600 mg PO Q6H PRN PRN Reason: Pain, moderate (4-7) Last Admin: 05/08/18 00:31 Dose: 600 mg Insulin Aspart (Novolog) 0 unit SC ACHS [facility]; Protocol Last Admin: 05/09/18 08:30 Dose: Not Given Lisinopril (Zestril) 5 mg PO DAILY [facility] Last Admin: 05/08/18 10:41 Dose: 5 mg Metformin HCl (Glucophage) 1,000 mg PO BIDPC [facility] Last Admin: 05/08/18 17:28 Dose: 1,000 mg Rosuvastatin Calcium (Crestor) 2.5 mg PO HS [facility] Last Admin: 05/08/18 21:32 Dose: 2.5 mg Sodium Hypochlorite (Dakins Solution 0.125%) 0 appl TOP DAILY [facility] Last Admin: 05/08/18 13:16 Dose: 20 appl Spironolactone (Aldactone) 25 mg PO DAILY [facility] Last Admin: 05/08/18 10:41 Dose: 25 mg - Labs Labs: 05/09/18 06:10 05/09/18 06:10 PT 11.8 SECONDS (9.7-12.2) 05/07/18 09:49 INR 1.1 05/07/18 09:49 - Constitutional Appears: Well, Non-toxic, No Acute Distress - Head Exam Head Exam: ATRAUMATIC, NORMAL INSPECTION, NORMOCEPHALIC - Eye Exam Eye Exam: EOMI, PERRL - ENT Exam ENT Exam: Mucous Membranes Moist - Respiratory Exam Respiratory Exam: Clear to Ausculation Bilateral, NORMAL BREATHING PATTERN - Cardiovascular Exam Cardiovascular Exam: REGULAR RHYTHM, RRR, +S1, +S2 - GI/Abdominal Exam GI & Abdominal Exam: Soft, Normal Bowel Sounds. absent: Tenderness - Extremities Exam Extremities Exam: Full ROM Additional comments: bilateral lower extremity erythema and swelling. Hardened extremities, right foot wound - Back Exam Back Exam: NORMAL INSPECTION - Neurological Exam Neurological Exam: Alert, Awake, CN II-XII Intact, Oriented x3 - Skin Skin Exam: Dry, Intact, Normal Color Assessment and Plan (1) Osteomyelitis of toe of right foot Assessment & Plan: Foot X ray: findings suspicious for acute osteomyelitis of 1st digit right foot CTA of bilateral lower extremities: moderate diffuse atherosclerotic disease. Foci of mild stenosis in both SFA. Three vessel runoff in both legs. Cirrhotic manifestation of liver. Toe culture from 05/03/18: gram positive cocci Negative blood cultures from 05/02/18 Peripheral angiogram 05/07: Left SFA has proximal 60%, mid 50%, and distal 50% calcific stenosis. Profunda femoris was patent. Popliteal had moderate 30-40% stenosis, two vessel runoff below the knee of anterior tibial artery and posterial tibial artery. Right SFA patient with proximal 30% and distal 40% calcific stenosis. Two vessel runoff AT and PT artery. Mild to moderate PVD observed. Distal microvascular ischemia observed. Continue with vancomycin and zosyn. Patient is cleared for discharge from cardiac standpoint. Please reconsult if new problems or concerns arise. Status: Acute (2) Hyperlipidemia Assessment & Plan: T Continue with rosuvastatin. Status: Acute (3) Diabetes Assessment & Plan: HgbA1c: 10.2 Continue with metformin and sliding scale insulin, glipizide Status: Acute (4) Hypertension Assessment & Plan: Systolic blood pressure at 110s over past 24 hours Continue with coreg, HCTZ, zestril, spironolactone Status: Acute (5) CAD (coronary artery disease) Assessment & Plan: Continue aspirin, plavix, statin, lisinopril, and coreg Status: Acute <Earl Alvarez - Last Filed: 05/15/18 21:00> Objective - Vital Signs/Intake and Output Vital Signs (last 24 hours): Temp Pulse Resp BP Pulse Ox 98.1 F 69 20 123/69 97 05/15/18 16:00 05/15/18 16:00 05/15/18 16:00 05/15/18 16:00 05/15/18 16:00 Intake and Output: 05/15/18 05/16/18 18:59 06:59 Intake Total 450 Balance 450 - Labs Labs: 05/15/18 06:51 05/15/18 06:51 PT 11.4 SECONDS (9.7-12.2) 05/12/18 18:45 INR 1.0 05/12/18 18:45 APTT 37 SECONDS (21-34) H 05/12/18 18:45 Assessment and Plan (1) Osteomyelitis of toe of right foot Status: Acute (2) CHF (congestive heart failure) Status: Acute (3) Cellulitis Status: Acute (4) Diabetes Status: Acute (5) Foot ulcer due to secondary DM Status: Acute (6) Hypertension Status: Acute Attending/Attestation - Attestation I have personally seen and examined this patient.: Yes I have fully participated in the care of the patient.: Yes I have reviewed all pertinent clinical information, including history, physical exam and plan: Yes
[2018-05-09] MEDS ORDERED: guaiFENesin DM 200 mg-20 mg/10 ml UD PO PRN (11:23)
--- NOTE | 2018-05-09 12:37 | CP.PCM.PN ---
Subjective - Date & Time of Evaluation Date of Evaluation: 05/09/18 Time of Evaluation: 12:33 - Subjective Subjective: Podiatry Progress Note for Dr. Guy 72M seen and evaluated at bedside for right hallux wound with osteomyelitis of hallux and second digit proximal phalanx base. Patient is AAO x 3 and NAD, resting comfortably in bed. States that he has no pain to the wound at this time. Denies any acute overnight events or new pedal complaints. Denies any recent nausea, vomiting, fever, chills, chest pain, shortness of breath, or diarrhea. Objective - Vital Signs/Intake and Output Vital Signs (last 24 hours): Temp Pulse Resp BP Pulse Ox 99.1 F 81 20 111/70 97 05/09/18 07:05 05/09/18 07:05 05/09/18 07:05 05/09/18 07:05 05/09/18 07:05 Intake and Output: 05/09/18 05/09/18 06:59 18:59 Intake Total 600 300 Output Total 700 300 Balance -100 0 - Medications Medications: Current Medications Aspirin (Aspirin Chewable) 81 mg PO DAILY [facility] Last Admin: 05/09/18 11:08 Dose: 81 mg Carvedilol (Coreg) 6.25 mg PO BID [facility] Last Admin: 05/09/18 09:21 Dose: 6.25 mg Clopidogrel Bisulfate (Plavix) 75 mg PO DAILY [facility] Last Admin: 05/09/18 09:19 Dose: 75 mg Cyclobenzaprine HCl (Flexeril) 10 mg PO TID [facility] Last Admin: 05/09/18 09:20 Dose: 10 mg Enoxaparin Sodium (Lovenox) 40 mg SC DAILY [facility] Last Admin: 05/05/18 09:46 Dose: 40 mg Glipizide (Glucotrol) 10 mg PO ACBD [facility] Last Admin: 05/09/18 08:30 Dose: 10 mg Guaifenesin/Dextromethorphan (Robitussin Dm) 10 ml PO Q4H PRN PRN Reason: Cough and congestion Hydrochlorothiazide (Hydrodiuril) 25 mg PO DAILY [facility] Last Admin: 05/09/18 09:20 Dose: 25 mg Piperacillin Sod/Tazobactam (Sod 3.375 gm/ Sodium Chloride) 100 mls @ 200 mls/hr IVPB Q8H [facility]; Protocol Last Admin: 05/09/18 05:50 Dose: 200 mls/hr Ibuprofen (Motrin Tab) 600 mg PO Q6H PRN PRN Reason: Pain, moderate (4-7) Last Admin: 05/08/18 00:31 Dose: 600 mg Insulin Aspart (Novolog) 0 unit SC ACHS [facility]; Protocol Last Admin: 05/09/18 08:30 Dose: Not Given Lisinopril (Zestril) 5 mg PO DAILY [facility] Last Admin: 05/09/18 09:20 Dose: 5 mg Metformin HCl (Glucophage) 1,000 mg PO BIDPC [facility] Last Admin: 05/09/18 09:20 Dose: 1,000 mg Rosuvastatin Calcium (Crestor) 2.5 mg PO HS [facility] Last Admin: 05/08/18 21:32 Dose: 2.5 mg Sodium Hypochlorite (Dakins Solution 0.125%) 0 appl TOP DAILY [facility] Last Admin: 05/09/18 09:26 Dose: 20 appl Spironolactone (Aldactone) 25 mg PO DAILY [facility] Last Admin: 05/09/18 09:20 Dose: 25 mg - Labs Labs: 05/09/18 06:10 05/09/18 06:10 PT 11.8 SECONDS (9.7-12.2) 05/07/18 09:49 INR 1.1 05/07/18 09:49 - Constitutional Appears: Well, Non-toxic, No Acute Distress - Extremities Exam Additional comments: LE focused exam: VASC: DP/PT pulses nonpalpable, temperature gradient warm to warm from proximal to distal WNL, CFT delayed >4 seconds to digits, non pitting edema noted to the R hallux ORTHO: No pain with palpation of ulceration at the hallux, no other gross deformities noted NEURO: Epicritic and protective sensation grossly diminished b/l DERM: unkempt lower extremity with hyperkertotic, scaly lesions to entire lower extremity; ulceration on dorsum of hallux measuring approximately 1 cm x 1cm x .3 cm with wound base mixture of granular and fibrotic tissue, fibrotic tissue decreased from yesterday, no erythema noted to foot at this time, decreased malodor since yesterday, no active drainage or bleeding noted, no purulence, no abscess or fluctanance, xerosis to entire lower extremity; hypertrophic, nail discoloration with subungal debris x10 - Neurological Exam Neurological Exam: Alert, Awake, Oriented x3 - Psychiatric Exam Psychiatric exam: Normal Affect, Normal Mood Assessment and Plan - Assessment and Plan (Free Text) Assessment: 72M seen and evaluated at bedside for right hallux wound with osteomyelitis of hallux and second digit proximal phalanx base Plan: Patient seen and evaluated Plan discussed with Dr. Guy Afebrile, absent leukocytosis Wound cx toe: Streptococcus Viridans Continue abx per ID R foot xray: Findings suspicious for acute osteomyelitis 1st digit right foot. The finding is marked on the study for review. 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 Guy Documentation of medical clearance for surgery by Medical team needed at this time Wound dressed with Dakins solution, DSD, zuleyka Nails 1-5 debrided to appropriate length without incident Podiatry will continue to follow while patient in house
--- NOTE | 2018-05-09 15:26 | RAD ---
Date of service: 05/09/2018 HISTORY: verify right PICC COMPARISON: No prior. TECHNIQUE: 1 view obtained. FINDINGS: LUNGS: No active pulmonary disease. PLEURA: No significant pleural effusion identified, no pneumothorax apparent. CARDIOVASCULAR: No aortic atherosclerotic calcification present. Mild cardiomegaly suggested this appears similar. No pulmonary vascular congestion. Interval insertion right PICC line tip in cavoatrial junction. No pneumothorax seen. OSSEOUS STRUCTURES: No significant abnormalities. VISUALIZED UPPER ABDOMEN: Normal. OTHER FINDINGS: None. IMPRESSION: Interval insertion right sided PICC line tip cavoatrial junction. No pneumothorax. Other findings as above.
--- NOTE | 2018-05-09 16:40 | CP.PCM.PN ---
Subjective - Date & Time of Evaluation Date of Evaluation: 05/09/18 Time of Evaluation: 10:00 - Subjective Subjective: Patient seen and examined at bedside. No overnight events reported. Patient today complains of a productive cough. He denies any fever, chillls, SOB, chest pain, abdominal pain, n/v, changes bowel habits or urinary symptoms. Objective - Vital Signs/Intake and Output Vital Signs (last 24 hours): Temp Pulse Resp BP Pulse Ox 99.1 F 81 20 111/70 97 05/09/18 07:05 05/09/18 07:05 05/09/18 07:05 05/09/18 07:05 05/09/18 07:05 Intake and Output: 05/09/18 05/09/18 06:59 18:59 Intake Total 600 300 Output Total 700 300 Balance -100 0 - Medications Medications: Current Medications Aspirin (Aspirin Chewable) 81 mg PO DAILY [facility] Last Admin: 05/09/18 11:08 Dose: 81 mg Carvedilol (Coreg) 6.25 mg PO BID [facility] Last Admin: 05/09/18 09:21 Dose: 6.25 mg Clopidogrel Bisulfate (Plavix) 75 mg PO DAILY [facility] Last Admin: 05/09/18 09:19 Dose: 75 mg Cyclobenzaprine HCl (Flexeril) 10 mg PO TID [facility] Last Admin: 05/09/18 09:20 Dose: 10 mg Enoxaparin Sodium (Lovenox) 40 mg SC DAILY [facility] Last Admin: 05/05/18 09:46 Dose: 40 mg Glipizide (Glucotrol) 10 mg PO ACBD [facility] Last Admin: 05/09/18 08:30 Dose: 10 mg Guaifenesin/Dextromethorphan (Robitussin Dm) 10 ml PO Q4H PRN PRN Reason: Cough and congestion Hydrochlorothiazide (Hydrodiuril) 25 mg PO DAILY [facility] Last Admin: 05/09/18 09:20 Dose: 25 mg Piperacillin Sod/Tazobactam (Sod 3.375 gm/ Sodium Chloride) 100 mls @ 200 mls/hr IVPB Q8H [facility]; Protocol Last Admin: 05/09/18 14:31 Dose: 200 mls/hr Ibuprofen (Motrin Tab) 600 mg PO Q6H PRN PRN Reason: Pain, moderate (4-7) Last Admin: 05/08/18 00:31 Dose: 600 mg Insulin Aspart (Novolog) 0 unit SC ACHS [facility]; Protocol Last Admin: 05/09/18 12:00 Dose: Not Given Lisinopril (Zestril) 5 mg PO DAILY [facility] Last Admin: 05/09/18 09:20 Dose: 5 mg Metformin HCl (Glucophage) 1,000 mg PO BIDPC [facility] Last Admin: 05/09/18 09:20 Dose: 1,000 mg Rosuvastatin Calcium (Crestor) 2.5 mg PO HS [facility] Last Admin: 05/08/18 21:32 Dose: 2.5 mg Sodium Hypochlorite (Dakins Solution 0.125%) 0 appl TOP DAILY [facility] Last Admin: 05/09/18 09:26 Dose: 20 appl Spironolactone (Aldactone) 25 mg PO DAILY [facility] Last Admin: 05/09/18 09:20 Dose: 25 mg - Labs Labs: 05/09/18 06:10 05/09/18 06:10 PT 11.8 SECONDS (9.7-12.2) 05/07/18 09:49 INR 1.1 05/07/18 09:49 - Additional Findings Additional findings: - Head Exam Head Exam: ATRAUMATIC, NORMAL INSPECTION - Eye Exam Eye Exam: EOMI, Normal appearance, PERRL Pupil Exam: NORMAL ACCOMODATION, PERRL. absent: Irregular, Unequal - ENT Exam ENT Exam: Mucous Membranes Moist, Normal Oropharynx - Respiratory Exam Respiratory Exam: Clear to Ausculation Bilateral, NORMAL BREATHING PATTERN. absent: Prolonged Expiratory Phase, Respiratory Distress - Cardiovascular Exam Cardiovascular Exam: REGULAR RHYTHM, +S1, +S2. absent: Rubs - GI/Abdominal Exam GI & Abdominal Exam: Soft, Normal Bowel Sounds. absent: Hyperactive Bowel Sounds - Extremities Exam Extremities Exam: Venous stasis skin changes, +edema bilaterally, +right foot dressing intact absent: Pedal Edema - Back Exam Back Exam: NORMAL INSPECTION. absent: CVA tenderness (R), paraspinal tenderness - Neurological Exam Neurological Exam: Alert, Awake, CN II-XII Intact, Oriented x3 - Psychiatric Exam Psychiatric exam: Normal Affect, Normal Mood. absent: Depressed - Skin Skin Exam: Dry, Intact Assessment and Plan - Assessment and Plan (Free Text) Assessment: 72 year old male with a past medical history of diabetes, hypertension, chf, and cellulitis presents with toe bleeding. Found to have osteomyeolitis Plan: Osteomyelitis of first digit of right foot -Stable, afebrile -S/P angiogram POD#2 -Patient is ambulating with surgical shoe -wound culture grew strep viridans -Antibiotics: Zosyn 3.375 Q8H IVPB, Vancomycin 1gm Q12 IVPB -Blood cultures showing no growth x 5 days -MRI highly suspicious for osteomyelitis of hallux distal and proximal phalanx as well as second digit proximal phalanx -ID on consult, Dr Kohli, help appreciated -Podiatry on consult, Dr Guy, help appreciated Imaging: -Foot xray:Findings suspicious for acute osteomyelitis 1st digit right foot. The finding is marked on the study for review. -CTA of bilateral lower extremities: moderate diffuse atherosclerotic disease. Foci of mild stenosis in both SFA. Three vessel runoff in both legs. Cirrhotic manifestation of liver. Peripheral Vascular Disease -S/P angiogram POD#2 that showed mild to moderate peripheral vascualr occlusive disease -Continue ASA 81mg PO daily, Plavix 75mg PO daily, Crestor 2.5mg PO HS Diabetes Mellitus -Continue Metformin 1000 mg PO BID -Continue Glipizide 10mg PO ACBD [facility] -[facility] ACHS Hypertension -Continue Lisinopril 5mg PO Daily -Continue Coreg 6.25mg PO BID [facility] Hyperlipidemia -Continue Crestor 2.5mg PO HS [facility] Cirrhosis -Continue Aldactone 25mg PO DAILY [facility] -Aspirin 81mg PO DAILY -Plavix 75 mg PO DAILY GI/DVT ppx -Lovenox 40mg SC DAILY [facility] -No GI ppx indicated at this time DISPO: Plan for amputation of the right foot 1st and 2nd digits on 05/14. Will begin medical optimization. ECHO and EKG ordered. Plan discussed with Dr Sher Lomax DO PGY-2
--- NOTE | 2018-05-09 19:15 | CP.PCM.PN ---
Subjective - Date & Time of Evaluation Date of Evaluation: 05/09/18 Time of Evaluation: 09:00 - Subjective Subjective: patient has decided to proceed with amputation denies fever or pain Objective - Vital Signs/Intake and Output Vital Signs (last 24 hours): Temp Pulse Resp BP Pulse Ox 97.4 F L 69 20 101/64 97 05/09/18 16:00 05/09/18 16:00 05/09/18 16:00 05/09/18 16:00 05/09/18 16:00 Intake and Output: 05/09/18 05/10/18 18:59 06:59 Intake Total 360 Output Total 300 Balance 60 - Medications Medications: Current Medications Aspirin (Aspirin Chewable) 81 mg PO DAILY [facility] Last Admin: 05/09/18 11:08 Dose: 81 mg Carvedilol (Coreg) 6.25 mg PO BID [facility] Last Admin: 05/09/18 17:52 Dose: Not Given Clopidogrel Bisulfate (Plavix) 75 mg PO DAILY [facility] Last Admin: 05/09/18 09:19 Dose: 75 mg Cyclobenzaprine HCl (Flexeril) 10 mg PO TID [facility] Last Admin: 05/09/18 17:53 Dose: 10 mg Enoxaparin Sodium (Lovenox) 40 mg SC DAILY [facility] Last Admin: 05/05/18 09:46 Dose: 40 mg Glipizide (Glucotrol) 10 mg PO ACBD [facility] Last Admin: 05/09/18 17:53 Dose: 10 mg Guaifenesin/Dextromethorphan (Robitussin Dm) 10 ml PO Q4H PRN PRN Reason: Cough and congestion Hydrochlorothiazide (Hydrodiuril) 25 mg PO DAILY [facility] Last Admin: 05/09/18 09:20 Dose: 25 mg Piperacillin Sod/Tazobactam (Sod 3.375 gm/ Sodium Chloride) 100 mls @ 200 mls/hr IVPB Q8H [facility]; Protocol Last Admin: 05/09/18 14:31 Dose: 200 mls/hr Ibuprofen (Motrin Tab) 600 mg PO Q6H PRN PRN Reason: Pain, moderate (4-7) Last Admin: 05/08/18 00:31 Dose: 600 mg Insulin Aspart (Novolog) 0 unit SC ACHS [facility]; Protocol Last Admin: 05/09/18 18:17 Dose: Not Given Lisinopril (Zestril) 5 mg PO DAILY [facility] Last Admin: 05/09/18 09:20 Dose: 5 mg Metformin HCl (Glucophage) 1,000 mg PO BIDPC [facility] Last Admin: 05/09/18 17:53 Dose: 1,000 mg Rosuvastatin Calcium (Crestor) 2.5 mg PO HS [facility] Last Admin: 05/08/18 21:32 Dose: 2.5 mg Sodium Hypochlorite (Dakins Solution 0.125%) 0 appl TOP DAILY [facility] Last Admin: 05/09/18 09:26 Dose: 20 appl Spironolactone (Aldactone) 25 mg PO DAILY [facility] Last Admin: 05/09/18 09:20 Dose: 25 mg - Labs Labs: 05/09/18 06:10 05/09/18 06:10 PT 11.8 SECONDS (9.7-12.2) 05/07/18 09:49 INR 1.1 05/07/18 09:49 - Constitutional Appears: Non-toxic, Chronically Ill - Head Exam Head Exam: NORMOCEPHALIC - Eye Exam Eye Exam: absent: Scleral icterus - ENT Exam ENT Exam: Mucous Membranes Dry - Neck Exam Neck Exam: absent: Lymphadenopathy - Respiratory Exam Respiratory Exam: Decreased Breath Sounds - Cardiovascular Exam Cardiovascular Exam: REGULAR RHYTHM - GI/Abdominal Exam GI & Abdominal Exam: Distended - Rectal Exam Rectal Exam: Deferred - Exam Exam: NORMAL INSPECTION - Extremities Exam Extremities Exam: absent: Pedal Edema - Back Exam Back Exam: absent: CVA tenderness (L), CVA tenderness (R) - Neurological Exam Neurological Exam: Alert, Awake, CN II-XII Intact - Psychiatric Exam Psychiatric exam: Normal Mood - Skin Skin Exam: Dry Assessment and Plan (1) Osteomyelitis of toe of right foot Status: Acute (2) CHF (congestive heart failure) Status: Acute (3) Cellulitis Status: Acute (4) Foot 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
[2018-05-09] MEDS: Rosuvastatin Calcium 2.5 mg Tab PO SCH (22:01)
[2018-05-10] MEDS: Piperacillin/Tazobact 3.375 GM in Sodium Chloride 100 ML IVPB SCH ×3 (05:47→22:13)
[2018-05-10 07:29] LABS: BASO % 0.8 % (0.0-2.0); EOS % 0.1 % (0.0-4.0); LYMPH % 19.3 % (20.0-40.0); MEAN CELL VOLUME 88.6 fL (80.0-94.0); MEAN CORPUSCULAR HGB CONC 33.9 g/dL (33.0-37.0); MEAN PLATELET VOLUME 9.6 fL (7.2-11.7); MONO # 0.9 K/uL (0.0-0.8); NEUT # 3.1 K/uL (1.8-7.0); NEUT % 61.8 % (50.0-75.0); RBC 4.33 Mil/uL (4.40-5.90); RED CELL DISTRIBUTION WIDTH 13.8 % (11.5-14.5)
--- NOTE | 2018-05-10 07:38 | CP.PCM.PN ---
Subjective - Date & Time of Evaluation Date of Evaluation: 05/10/18 Time of Evaluation: 07:38 - Subjective Subjective: Medicine Progress Note - Dr Olivarez's service Patient seen and examined at bedside. Per nursing no acute events overnight. Patient is s/p angiogram yesterday. Tolerated the procedure well. States this is lower extremity swelling has improved. Objective - Vital Signs/Intake and Output Vital Signs (last 24 hours): Temp Pulse Resp BP Pulse Ox 99.2 F 80 20 122/68 98 05/10/18 02:00 05/10/18 02:00 05/10/18 02:00 05/10/18 02:00 05/10/18 02:00 Intake and Output: 05/10/18 05/10/18 06:59 18:59 Intake Total 600 Output Total 500 Balance 100 - Medications Medications: Current Medications Aspirin (Aspirin Chewable) 81 mg PO DAILY [facility] Last Admin: 05/09/18 11:08 Dose: 81 mg Carvedilol (Coreg) 6.25 mg PO BID [facility] Last Admin: 05/09/18 17:52 Dose: Not Given Clopidogrel Bisulfate (Plavix) 75 mg PO DAILY [facility] Last Admin: 05/09/18 09:19 Dose: 75 mg Cyclobenzaprine HCl (Flexeril) 10 mg PO TID [facility] Last Admin: 05/09/18 17:53 Dose: 10 mg Enoxaparin Sodium (Lovenox) 40 mg SC DAILY [facility] Last Admin: 05/05/18 09:46 Dose: 40 mg Glipizide (Glucotrol) 10 mg PO ACBD [facility] Last Admin: 05/09/18 17:53 Dose: 10 mg Guaifenesin/Dextromethorphan (Robitussin Dm) 10 ml PO Q4H PRN PRN Reason: Cough and congestion Hydrochlorothiazide (Hydrodiuril) 25 mg PO DAILY [facility] Last Admin: 05/09/18 09:20 Dose: 25 mg Piperacillin Sod/Tazobactam (Sod 3.375 gm/ Sodium Chloride) 100 mls @ 200 mls/hr IVPB Q8H [facility]; Protocol Last Admin: 05/10/18 05:47 Dose: 200 mls/hr Ibuprofen (Motrin Tab) 600 mg PO Q6H PRN PRN Reason: Pain, moderate (4-7) Last Admin: 05/08/18 00:31 Dose: 600 mg Insulin Aspart (Novolog) 0 unit SC ACHS [facility]; Protocol Last Admin: 05/09/18 22:01 Dose: Not Given Lisinopril (Zestril) 5 mg PO DAILY [facility] Last Admin: 05/09/18 09:20 Dose: 5 mg Metformin HCl (Glucophage) 1,000 mg PO BIDPC [facility] Last Admin: 05/09/18 17:53 Dose: 1,000 mg Rosuvastatin Calcium (Crestor) 2.5 mg PO HS [facility] Last Admin: 05/09/18 22:01 Dose: 2.5 mg Sodium Hypochlorite (Dakins Solution 0.125%) 0 appl TOP DAILY [facility] Last Admin: 05/09/18 09:26 Dose: 20 appl Spironolactone (Aldactone) 25 mg PO DAILY [facility] Last Admin: 05/09/18 09:20 Dose: 25 mg - Labs Labs: 05/10/18 07:03 05/09/18 06:10 PT 11.8 SECONDS (9.7-12.2) 05/07/18 09:49 INR 1.1 05/07/18 09:49 - Head Exam Head Exam: ATRAUMATIC, NORMAL INSPECTION - Eye Exam Eye Exam: EOMI, Normal appearance, PERRL Pupil Exam: NORMAL ACCOMODATION - ENT Exam ENT Exam: Mucous Membranes Moist, Normal Oropharynx - Respiratory Exam Respiratory Exam: Clear to Ausculation Bilateral, NORMAL BREATHING PATTERN. absent: Prolonged Expiratory Phase, Respiratory Distress - Cardiovascular Exam Cardiovascular Exam: REGULAR RHYTHM, +S1, +S2 - GI/Abdominal Exam GI & Abdominal Exam: Soft, Normal Bowel Sounds. absent: Hyperactive Bowel Sounds - Extremities Exam Extremities Exam: Normal Inspection. absent: Pedal Edema - Neurological Exam Neurological Exam: Alert, Awake, CN II-XII Intact, Oriented x3 - Psychiatric Exam Psychiatric exam: Normal Affect, Normal Mood - Skin Skin Exam: Dry, Intact Assessment and Plan - Assessment and Plan (Free Text) Plan: 72 year old male with a past medical history of diabetes, hypertension, chf, and cellulitis presents with toe bleeding. Found to have osteomyeolitis Plan: Osteomyelitis of first digit of right foot -Stable, afebrile -S/P angiogram POD#3 -Patient is ambulating with surgical shoe -wound culture grew strep viridans -Antibiotics: Zosyn 3.375 Q8H IVPB -Blood cultures showing no growth x 5 days -MRI highly suspicious for osteomyelitis of hallux distal and proximal phalanx as well as second digit proximal phalanx -ID on consult, Dr Kohli, help appreciated -Podiatry on consult, Dr Guy, help appreciated Imaging: -Foot xray:Findings suspicious for acute osteomyelitis 1st digit right foot. The finding is marked on the study for review. -CTA of bilateral lower extremities: moderate diffuse atherosclerotic disease. Foci of mild stenosis in both SFA. Three vessel runoff in both legs. Cirrhotic manifestation of liver. Peripheral Vascular Disease -S/P angiogram POD#2 that showed mild to moderate peripheral vascualr occlusive disease -Continue ASA 81mg PO daily, Plavix 75mg PO daily, Crestor 2.5mg PO HS Diabetes Mellitus -Continue Metformin 1000 mg PO BID -Continue Glipizide 10mg PO ACBD [facility] -ISS ACHS Hypertension -Hydrochlorothiazide 25mg PO DAILY -Continue Lisinopril 5mg PO Daily -Continue Coreg 6.25mg PO BID [facility] Hyperlipidemia -Continue Crestor 2.5mg PO HS [facility] Cirrhosis -Continue Aldactone 25mg PO DAILY CAD -Aspirin 81mg PO DAILY -Plavix 75 mg PO DAILY GI/DVT ppx -Lovenox 40mg SC DAILY [facility] -No GI ppx indicated at this time -NPO Sunday night. DISPO: Plan for amputation of the right foot 1st on Sunday05/13/18 . Will begin medical optimization. Pending ECHO and EKG. Plan discussed with Dr Sher Taylor, PGY-2
[2018-05-10 07:51] LABS: ALB/GLOB RATIO 1.3 (1.0-2.1); ALBUMIN 3.9 g/dL (3.5-5.0); ALT/SGPT 24 U/L (21-72); AST/SGOT 36 U/L (17-59); BLOOD UREA NITROGEN 23 mg/dL (9-20); GFR NON-AFRICAN AMERICAN > 60
[2018-05-10] MEDS: (Novolog) Insulin Aspart, Recombinant 100 u/ml 10 ml vial SC SCH ×4 (08:35→22:13)
--- NOTE | 2018-05-10 08:57 | CP.PCM.PN ---
<Jaret Bright - Last Filed: 05/10/18 08:55> Subjective - Date & Time of Evaluation Date of Evaluation: 05/10/18 Time of Evaluation: 08:55 - Subjective Subjective: Jaret Bright, PGY-1, Cardiology Progress Note for Dr. Alvarez Patient was seen and evaluated at bedside. Patient had no acute overnight events. Patient has no acute complaints and reports improvement in lower extremity edema and pain. Objective - Vital Signs/Intake and Output Vital Signs (last 24 hours): Temp Pulse Resp BP Pulse Ox 99.2 F 80 20 122/68 98 05/10/18 02:00 05/10/18 02:00 05/10/18 02:00 05/10/18 02:00 05/10/18 02:00 Intake and Output: 05/10/18 05/10/18 06:59 18:59 Intake Total 600 Output Total 500 Balance 100 - Medications Medications: Current Medications Aspirin (Aspirin Chewable) 81 mg PO DAILY [facility] Last Admin: 05/09/18 11:08 Dose: 81 mg Carvedilol (Coreg) 6.25 mg PO BID [facility] Last Admin: 05/09/18 17:52 Dose: Not Given Clopidogrel Bisulfate (Plavix) 75 mg PO DAILY [facility] Last Admin: 05/09/18 09:19 Dose: 75 mg Cyclobenzaprine HCl (Flexeril) 10 mg PO TID [facility] Last Admin: 05/09/18 17:53 Dose: 10 mg Enoxaparin Sodium (Lovenox) 40 mg SC DAILY [facility] Last Admin: 05/05/18 09:46 Dose: 40 mg Glipizide (Glucotrol) 10 mg PO ACBD [facility] Last Admin: 05/10/18 08:35 Dose: Not Given Guaifenesin/Dextromethorphan (Robitussin Dm) 10 ml PO Q4H PRN PRN Reason: Cough and congestion Hydrochlorothiazide (Hydrodiuril) 25 mg PO DAILY [facility] Last Admin: 05/09/18 09:20 Dose: 25 mg Piperacillin Sod/Tazobactam (Sod 3.375 gm/ Sodium Chloride) 100 mls @ 200 mls/hr IVPB Q8H [facility]; Protocol Last Admin: 05/10/18 05:47 Dose: 200 mls/hr Ibuprofen (Motrin Tab) 600 mg PO Q6H PRN PRN Reason: Pain, moderate (4-7) Last Admin: 05/08/18 00:31 Dose: 600 mg Insulin Aspart (Novolog) 0 unit SC ACHS [facility]; Protocol Last Admin: 05/10/18 08:35 Dose: Not Given Lisinopril (Zestril) 5 mg PO DAILY [facility] Last Admin: 05/09/18 09:20 Dose: 5 mg Metformin HCl (Glucophage) 1,000 mg PO BIDPC [facility] Last Admin: 05/09/18 17:53 Dose: 1,000 mg Rosuvastatin Calcium (Crestor) 2.5 mg PO HS [facility] Last Admin: 05/09/18 22:01 Dose: 2.5 mg Sodium Hypochlorite (Dakins Solution 0.125%) 0 appl TOP DAILY [facility] Last Admin: 05/09/18 09:26 Dose: 20 appl Spironolactone (Aldactone) 25 mg PO DAILY [facility] Last Admin: 05/09/18 09:20 Dose: 25 mg - Labs Labs: 05/10/18 07:03 05/10/18 07:03 PT 11.8 SECONDS (9.7-12.2) 05/07/18 09:49 INR 1.1 05/07/18 09:49 - Constitutional Appears: Well, Non-toxic, No Acute Distress - Head Exam Head Exam: ATRAUMATIC, NORMAL INSPECTION, NORMOCEPHALIC - Eye Exam Eye Exam: EOMI, PERRL - ENT Exam ENT Exam: Mucous Membranes Moist - Respiratory Exam Respiratory Exam: Clear to Ausculation Bilateral, NORMAL BREATHING PATTERN - Cardiovascular Exam Cardiovascular Exam: REGULAR RHYTHM, RRR, +S1, +S2 - GI/Abdominal Exam GI & Abdominal Exam: Soft, Normal Bowel Sounds. absent: Tenderness - Extremities Exam Extremities Exam: Full ROM Additional comments: bilateral lower extremity erythema and swelling. Hardened extremities, right foot wound - Back Exam Back Exam: NORMAL INSPECTION - Neurological Exam Neurological Exam: Alert, Awake, CN II-XII Intact, Oriented x3 - Skin Skin Exam: Dry, Intact, Normal Color Assessment and Plan (1) Osteomyelitis of toe of right foot Assessment & Plan: Foot X ray: findings suspicious for acute osteomyelitis of 1st digit right foot CTA of bilateral lower extremities: moderate diffuse atherosclerotic disease. Foci of mild stenosis in both SFA. Three vessel runoff in both legs. Cirrhotic manifestation of liver. Toe culture from 05/03/18: gram positive cocci Negative blood cultures from 05/02/18 Peripheral angiogram 05/07: Left SFA has proximal 60%, mid 50%, and distal 50% calcific stenosis. Profunda femoris was patent. Popliteal had moderate 30-40% stenosis, two vessel runoff below the knee of anterior tibial artery and posterial tibial artery. Right SFA patient with proximal 30% and distal 40% calcific stenosis. Two vessel runoff AT and PT artery. Mild to moderate PVD observed. Distal microvascular ischemia observed. Continue with vancomycin and zosyn. Patient is scheduled for right hallux amputation Sunday Status: Acute (2) Hyperlipidemia Assessment & Plan: T Continue with rosuvastatin. Status: Acute (3) Diabetes Assessment & Plan: HgbA1c: 10.2 Continue with metformin and sliding scale insulin, glipizide Status: Acute (4) Hypertension Assessment & Plan: Systolic blood pressure ranging from 100s to 120s over last 24 hours Continue with coreg, HCTZ, zestril, spironolactone Status: Acute (5) CAD (coronary artery disease) Assessment & Plan: Continue aspirin, plavix, statin, lisinopril, and coreg Status: Acute <Earl Alvarez - Last Filed: 05/13/18 08:18> Objective - Vital Signs/Intake and Output Vital Signs (last 24 hours): Temp Pulse Resp BP Pulse Ox 97.9 F 77 20 144/81 99 05/13/18 07:53 05/13/18 07:53 05/13/18 07:53 05/13/18 07:53 05/13/18 07:53 Intake and Output: 05/13/18 05/13/18 06:59 18:59 Intake Total 0 Balance 0 - Medications Medications: Current Medications Amlodipine Besylate (Norvasc) 2.5 mg PO DAILY [facility] Last Admin: 05/12/18 10:22 Dose: 2.5 mg Aspirin (Aspirin Chewable) 81 mg PO DAILY [facility] Last Admin: 05/12/18 10:23 Dose: 81 mg Carvedilol (Coreg) 6.25 mg PO BID [facility] Last Admin: 05/12/18 17:20 Dose: 6.25 mg Clopidogrel Bisulfate (Plavix) 75 mg PO DAILY [facility] Last Admin: 05/10/18 09:18 Dose: 75 mg Cyclobenzaprine HCl (Flexeril) 10 mg PO TID [facility] Last Admin: 05/12/18 17:21 Dose: 10 mg Enoxaparin Sodium (Lovenox) 40 mg SC DAILY [facility] Last Admin: 05/05/18 09:46 Dose: 40 mg Glipizide (Glucotrol) 10 mg PO ACBD [facility] Last Admin: 05/13/18 07:33 Dose: Not Given Guaifenesin/Dextromethorphan (Robitussin Dm) 10 ml PO Q4H PRN PRN Reason: Cough and congestion Hydrochlorothiazide (Hydrodiuril) 25 mg PO DAILY [facility] Last Admin: 05/10/18 09:25 Dose: 25 mg Ibuprofen (Motrin Tab) 600 mg PO Q6H PRN PRN Reason: Pain, moderate (4-7) Last Admin: 05/08/18 00:31 Dose: 600 mg Insulin Aspart (Novolog) 0 unit SC ACHS [facility]; Protocol Last Admin: 05/13/18 07:33 Dose: Not Given Lisinopril (Zestril) 5 mg PO DAILY [facility] Last Admin: 05/12/18 10:22 Dose: 5 mg Metformin HCl (Glucophage) 1,000 mg PO BIDPC [facility] Last Admin: 05/12/18 17:20 Dose: 1,000 mg Rosuvastatin Calcium (Crestor) 2.5 mg PO HS [facility] Last Admin: 05/12/18 21:10 Dose: 2.5 mg Sodium Hypochlorite (Dakins Solution 0.125%) 0 appl TOP DAILY [facility] Last Admin: 05/12/18 10:24 Dose: 20 appl Spironolactone (Aldactone) 25 mg PO DAILY [facility] Last Admin: 05/12/18 10:23 Dose: 25 mg - Labs Labs: 05/10/18 07:03 05/10/18 07:03 PT 11.4 SECONDS (9.7-12.2) 05/12/18 18:45 INR 1.0 05/12/18 18:45 APTT 37 SECONDS (21-34) H 05/12/18 18:45 Assessment and Plan (1) Osteomyelitis of toe of right foot Status: Acute (2) CHF (congestive heart failure) Status: Acute (3) Cellulitis Status: Acute (4) Diabetes Status: Acute (5) Foot ulcer due to secondary DM Status: Acute (6) Hypertension Status: Acute Attending/Attestation - Attestation I have personally seen and examined this patient.: Yes I have fully participated in the care of the patient.: Yes I have reviewed all pertinent clinical information, including history, physical exam and plan: Yes
--- NOTE | 2018-05-10 09:07 | CP.PCM.PN ---
Subjective - Date & Time of Evaluation Date of Evaluation: 05/10/18 Time of Evaluation: 09:04 - Subjective Subjective: Podiatry Progress Note for Dr. Guy 72M seen and evaluated at bedside for right hallux wound with osteomyelitis of hallux and second digit proximal phalanx base. Patient is AAO x 3 and NAD, resting comfortably in bed. States that he has no pain to the wound at this time. Denies any acute overnight events or new pedal complaints. Denies any recent nausea, vomiting, fever, chills, chest pain, shortness of breath, or diarrhea. Objective - Vital Signs/Intake and Output Vital Signs (last 24 hours): Temp Pulse Resp BP Pulse Ox 99.2 F 80 20 122/68 98 05/10/18 02:00 05/10/18 02:00 05/10/18 02:00 05/10/18 02:00 05/10/18 02:00 Intake and Output: 05/10/18 05/10/18 06:59 18:59 Intake Total 600 Output Total 500 Balance 100 - Medications Medications: Current Medications Aspirin (Aspirin Chewable) 81 mg PO DAILY [facility] Last Admin: 05/09/18 11:08 Dose: 81 mg Carvedilol (Coreg) 6.25 mg PO BID [facility] Last Admin: 05/09/18 17:52 Dose: Not Given Clopidogrel Bisulfate (Plavix) 75 mg PO DAILY [facility] Last Admin: 05/09/18 09:19 Dose: 75 mg Cyclobenzaprine HCl (Flexeril) 10 mg PO TID [facility] Last Admin: 05/09/18 17:53 Dose: 10 mg Enoxaparin Sodium (Lovenox) 40 mg SC DAILY [facility] Last Admin: 05/05/18 09:46 Dose: 40 mg Glipizide (Glucotrol) 10 mg PO ACBD [facility] Last Admin: 05/10/18 08:35 Dose: Not Given Guaifenesin/Dextromethorphan (Robitussin Dm) 10 ml PO Q4H PRN PRN Reason: Cough and congestion Hydrochlorothiazide (Hydrodiuril) 25 mg PO DAILY [facility] Last Admin: 05/09/18 09:20 Dose: 25 mg Piperacillin Sod/Tazobactam (Sod 3.375 gm/ Sodium Chloride) 100 mls @ 200 mls/hr IVPB Q8H [facility]; Protocol Last Admin: 05/10/18 05:47 Dose: 200 mls/hr Ibuprofen (Motrin Tab) 600 mg PO Q6H PRN PRN Reason: Pain, moderate (4-7) Last Admin: 05/08/18 00:31 Dose: 600 mg Insulin Aspart (Novolog) 0 unit SC ACHS [facility]; Protocol Last Admin: 05/10/18 08:35 Dose: Not Given Lisinopril (Zestril) 5 mg PO DAILY [facility] Last Admin: 05/09/18 09:20 Dose: 5 mg Metformin HCl (Glucophage) 1,000 mg PO BIDPC [facility] Last Admin: 05/09/18 17:53 Dose: 1,000 mg Rosuvastatin Calcium (Crestor) 2.5 mg PO HS [facility] Last Admin: 05/09/18 22:01 Dose: 2.5 mg Sodium Hypochlorite (Dakins Solution 0.125%) 0 appl TOP DAILY [facility] Last Admin: 05/09/18 09:26 Dose: 20 appl Spironolactone (Aldactone) 25 mg PO DAILY [facility] Last Admin: 05/09/18 09:20 Dose: 25 mg - Labs Labs: 05/10/18 07:03 05/10/18 07:03 PT 11.8 SECONDS (9.7-12.2) 05/07/18 09:49 INR 1.1 05/07/18 09:49 - Constitutional Appears: Well, Non-toxic, No Acute Distress - Extremities Exam Additional comments: LE focused exam: VASC: DP/PT pulses nonpalpable, temperature gradient warm to warm from proximal to distal WNL, CFT delayed >4 seconds to digits, non pitting edema noted to the R hallux ORTHO: No pain with palpation of ulceration at the hallux, no other gross deformities noted NEURO: Epicritic and protective sensation grossly diminished b/l DERM: unkempt lower extremity with hyperkertotic, scaly lesions to entire lower extremity; ulceration on dorsum of hallux measuring approximately 1 cm x 1cm x .3 cm with wound base mostly granular tissue, no erythema noted to foot at this time, no malodor appreciated, no active drainage or bleeding noted, no purulence, no abscess or fluctanance, xerosis to entire lower extremity; hypertrophic, nail discoloration with subungal debris x10 - Neurological Exam Neurological Exam: Alert, Awake, Oriented x3 - Psychiatric Exam Psychiatric exam: Normal Affect, Normal Mood Assessment and Plan - Assessment and Plan (Free Text) Assessment: 72M seen and evaluated at bedside for right hallux wound with osteomyelitis of hallux and second digit proximal phalanx base. Plan: Patient seen and evaluated with Dr. Guy Afebrile, absent leukocytosis Wound cx toe: Streptococcus Viridans Continue abx per ID R foot xray: Findings suspicious for acute osteomyelitis 1st digit right foot. The finding is marked on the study for review. MRI highly suspicious for osteomyelitis of hallux distal and proximal phalanx as well as second digit proximal phalanx Vascular workup appreciated Dr. Guy discussed amputation of right hallux with patient, patient agreed and demonstrated good understanding Surgery is tentatively scheduled for Saturday 05/[address] Guy Documentation of medical clearance for surgery by Medical team needed at this time Wound dressed with Dakins solution, DSOmar, zuleyka Podiatry will continue to follow while patient in house
--- NOTE | 2018-05-10 15:47 | CP.PCM.PN ---
Subjective - Date & Time of Evaluation Date of Evaluation: 05/10/18 Time of Evaluation: 08:00 - Subjective Subjective: awaiting OR on Sunday c/o pain denies chest pain cough or SOB Objective - Vital Signs/Intake and Output Vital Signs (last 24 hours): Temp Pulse Resp BP Pulse Ox 98 F 75 20 130/85 75 L 05/10/18 09:05 05/10/18 09:05 05/10/18 09:05 05/10/18 09:05 05/10/18 09:05 Intake and Output: 05/10/18 05/10/18 06:59 18:59 Intake Total 600 Output Total 500 Balance 100 - Medications Medications: Current Medications Amlodipine Besylate (Norvasc) 2.5 mg PO DAILY [facility] Aspirin (Aspirin Chewable) 81 mg PO DAILY [facility] Last Admin: 05/10/18 09:18 Dose: 81 mg Carvedilol (Coreg) 6.25 mg PO BID [facility] Last Admin: 05/10/18 09:19 Dose: 6.25 mg Clopidogrel Bisulfate (Plavix) 75 mg PO DAILY [facility] Last Admin: 05/10/18 09:18 Dose: 75 mg Cyclobenzaprine HCl (Flexeril) 10 mg PO TID [facility] Last Admin: 05/10/18 13:56 Dose: 10 mg Enoxaparin Sodium (Lovenox) 40 mg SC DAILY [facility] Last Admin: 05/05/18 09:46 Dose: 40 mg Glipizide (Glucotrol) 10 mg PO ACBD [facility] Last Admin: 05/10/18 08:35 Dose: Not Given Guaifenesin/Dextromethorphan (Robitussin Dm) 10 ml PO Q4H PRN PRN Reason: Cough and congestion Hydrochlorothiazide (Hydrodiuril) 25 mg PO DAILY [facility] Last Admin: 05/10/18 09:25 Dose: 25 mg Piperacillin Sod/Tazobactam (Sod 3.375 gm/ Sodium Chloride) 100 mls @ 200 mls/hr IVPB Q8H [facility]; Protocol Last Admin: 05/10/18 13:56 Dose: 200 mls/hr Ibuprofen (Motrin Tab) 600 mg PO Q6H PRN PRN Reason: Pain, moderate (4-7) Last Admin: 05/08/18 00:31 Dose: 600 mg Insulin Aspart (Novolog) 0 unit SC [facility]; Protocol Last Admin: 05/10/18 11:55 Dose: Not Given Lisinopril (Zestril) 5 mg PO DAILY [facility] Last Admin: 05/10/18 09:18 Dose: 5 mg Metformin HCl (Glucophage) 1,000 mg PO BIDPC [facility] Last Admin: 05/10/18 09:18 Dose: Not Given Rosuvastatin Calcium (Crestor) 2.5 mg PO HS [facility] Last Admin: 05/09/18 22:01 Dose: 2.5 mg Sodium Hypochlorite (Dakins Solution 0.125%) 0 appl TOP DAILY [facility] Last Admin: 05/10/18 09:21 Dose: 20 appl Spironolactone (Aldactone) 25 mg PO DAILY [facility] Last Admin: 05/10/18 09:19 Dose: 25 mg - Labs Labs: 05/10/18 07:03 05/10/18 07:03 PT 11.8 SECONDS (9.7-12.2) 05/07/18 09:49 INR 1.1 05/07/18 09:49 - Constitutional Appears: Non-toxic, Chronically Ill - Head Exam Head Exam: NORMOCEPHALIC - Eye Exam Eye Exam: absent: Scleral icterus - ENT Exam ENT Exam: Mucous Membranes Dry - Neck Exam Neck Exam: absent: Lymphadenopathy - Respiratory Exam Respiratory Exam: Decreased Breath Sounds, Clear to Ausculation Bilateral - Cardiovascular Exam Cardiovascular Exam: REGULAR RHYTHM, +S1, +S2 - GI/Abdominal Exam GI & Abdominal Exam: Distended, Soft. absent: Tenderness - Rectal Exam Rectal Exam: Deferred - Exam Exam: NORMAL INSPECTION - Extremities Exam Extremities Exam: Pedal Edema - Back Exam Back Exam: absent: CVA tenderness (L), CVA tenderness (R) - Neurological Exam Neurological Exam: Alert, Awake, CN II-XII Intact, Oriented x3 - Psychiatric Exam Psychiatric exam: Depressed - Skin Skin Exam: Dry Assessment and Plan (1) Osteomyelitis of toe of right foot Status: Acute (2) CHF (congestive heart failure) Status: Acute (3) Cellulitis Status: Acute (4) Foot ulcer due to secondary DM Status: Acute (5) Hypertension Status: Acute - Assessment and Plan (Free Text) Assessment: for amputation sunday then min 7 days IV rx ( longer oif healing delayed or infection persists or recurs )
--- NOTE | 2018-05-10 16:33 | RAD ---
Date of service: 05/10/2018 HISTORY: New Cough/Sob with Productive Sputum/R/O HCAP COMPARISON: 05/09/2018. FINDINGS: LUNGS: The lungs are well inflated. There is mild pulmonary venous congestion. No focal consolidation. PLEURA: No pleural effusions or pneumothorax. CARDIOVASCULAR: There is persistent moderate cardiomegaly. No aortic atherosclerotic calcifications present. OSSEOUS STRUCTURES: Within normal limits for the patient's age. VISUALIZED UPPER ABDOMEN: Normal. OTHER FINDINGS: None. IMPRESSION: No active pulmonary disease. Moderate cardiomegaly and mild pulmonary venous congestion.
[2018-05-10] MEDS: Rosuvastatin Calcium 2.5 mg Tab PO SCH (22:14)
[2018-05-11 01:19] LABS: OSMOLALITY,URINE 274 mosm/kg (300-1000)
[2018-05-11] MEDS: Piperacillin/Tazobact 3.375 GM in Sodium Chloride 100 ML IVPB SCH ×3 (05:04→21:31)
[2018-05-11] MEDS: (Novolog) Insulin Aspart, Recombinant 100 u/ml 10 ml vial SC SCH ×5 (08:13→22:25)
--- NOTE | 2018-05-11 11:03 | CP.PCM.PN ---
Subjective - Date & Time of Evaluation Date of Evaluation: 05/11/18 Time of Evaluation: 11:00 - Subjective Subjective: Podiatry Progress Note for Dr. Guy 72M seen and evaluated at bedside for right hallux wound with osteomyelitis of hallux and second digit proximal phalanx base. Patient is AAO x 3 and NAD, resting comfortably in bed. States that he has no pain to the wound at this time. Denies any acute overnight events or new pedal complaints. Denies any recent nausea, vomiting, fever, chills, chest pain, shortness of breath, or diarrhea. Objective - Vital Signs/Intake and Output Vital Signs (last 24 hours): Temp Pulse Resp BP Pulse Ox 97.4 F L 72 20 117/70 97 05/11/18 08:11 05/11/18 08:11 05/11/18 08:11 05/11/18 08:11 05/11/18 08:11 Intake and Output: 05/11/18 05/11/18 06:59 18:59 Intake Total 950 Balance 950 - Medications Medications: Current Medications Amlodipine Besylate (Norvasc) 2.5 mg PO DAILY [facility] Last Admin: 05/11/18 10:21 Dose: 2.5 mg Aspirin (Aspirin Chewable) 81 mg PO DAILY [facility] Last Admin: 05/11/18 10:19 Dose: 81 mg Carvedilol (Coreg) 6.25 mg PO BID [facility] Last Admin: 05/11/18 10:21 Dose: 6.25 mg Clopidogrel Bisulfate (Plavix) 75 mg PO DAILY [facility] Last Admin: 05/10/18 09:18 Dose: 75 mg Cyclobenzaprine HCl (Flexeril) 10 mg PO TID [facility] Last Admin: 05/11/18 10:22 Dose: 10 mg Enoxaparin Sodium (Lovenox) 40 mg SC DAILY [facility] Last Admin: 05/05/18 09:46 Dose: 40 mg Glipizide (Glucotrol) 10 mg PO ACBD [facility] Last Admin: 05/11/18 08:13 Dose: Not Given Guaifenesin/Dextromethorphan (Robitussin Dm) 10 ml PO Q4H PRN PRN Reason: Cough and congestion Hydrochlorothiazide (Hydrodiuril) 25 mg PO DAILY [facility] Last Admin: 05/10/18 09:25 Dose: 25 mg Piperacillin Sod/Tazobactam (Sod 3.375 gm/ Sodium Chloride) 100 mls @ 200 mls/hr IVPB Q8H [facility]; Protocol Last Admin: 05/11/18 05:04 Dose: 200 mls/hr Ibuprofen (Motrin Tab) 600 mg PO Q6H PRN PRN Reason: Pain, moderate (4-7) Last Admin: 05/08/18 00:31 Dose: 600 mg Insulin Aspart (Novolog) 0 unit SC ACHS [facility]; Protocol Last Admin: 05/11/18 08:13 Dose: Not Given Lisinopril (Zestril) 5 mg PO DAILY [facility] Last Admin: 05/11/18 10:21 Dose: 5 mg Metformin HCl (Glucophage) 1,000 mg PO BIDPC [facility] Last Admin: 05/11/18 08:12 Dose: Not Given Rosuvastatin Calcium (Crestor) 2.5 mg PO HS [facility] Last Admin: 05/10/18 22:14 Dose: 2.5 mg Sodium Hypochlorite (Dakins Solution 0.125%) 0 appl TOP DAILY [facility] Last Admin: 05/11/18 10:23 Dose: 20 appl Spironolactone (Aldactone) 25 mg PO DAILY [facility] Last Admin: 05/11/18 10:21 Dose: 25 mg - Labs Labs: 05/10/18 07:03 05/10/18 07:03 PT 11.8 SECONDS (9.7-12.2) 05/07/18 09:49 INR 1.1 05/07/18 09:49 - Constitutional Appears: Well, Non-toxic, No Acute Distress - Extremities Exam Additional comments: LE focused exam: VASC: DP/PT pulses nonpalpable, temperature gradient warm to warm from proximal to distal WNL, CFT delayed >4 seconds to digits, non pitting edema noted to the R hallux clinically same ORTHO: No pain with palpation of ulceration at the hallux, no other gross deformities noted NEURO: Epicritic and protective sensation grossly diminished b/l DERM: unkempt lower extremity with hyperkertotic, scaly lesions to entire lower extremity; ulceration on dorsum of hallux measuring approximately 1 cm x 1cm x .3 cm with wound base mostly granular tissue, no erythema noted to foot at this time, no malodor appreciated, no active drainage or bleeding noted, no purulence, no abscess or fluctanance, xerosis to entire lower extremity; hypertrophic, nail discoloration with subungal debris x10 - Neurological Exam Neurological Exam: Alert, Awake, Oriented x3 - Psychiatric Exam Psychiatric exam: Normal Affect, Normal Mood Assessment and Plan - Assessment and Plan (Free Text) Assessment: 72M seen and evaluated at bedside for right hallux wound with osteomyelitis of hallux and second digit proximal phalanx base Plan: Patient seen and evaluated with Dr. Guy Afebrile, absent leukocytosis Wound cx toe: Streptococcus Viridans Continue abx per ID R foot xray: Findings suspicious for acute osteomyelitis 1st digit right foot. The finding is marked on the study for review. MRI highly suspicious for osteomyelitis of hallux distal and proximal phalanx as well as second digit proximal phalanx Vascular workup appreciated F/u INR Amputation of hallux and possible amputation of second digit tentatively scheduled for Saturday 05/[address] Guy Documentation of medical clearance for surgery by Medical team needed at this time Wound dressed with Dakins solution, NICHOLAS, zuleyka Podiatry will continue to follow while patient in house
[2018-05-11] MEDS: Rosuvastatin Calcium 2.5 mg Tab PO SCH (21:32)
[2018-05-12] MEDS: Piperacillin/Tazobact 3.375 GM in Sodium Chloride 100 ML IVPB SCH ×2 (05:11→14:16)
[2018-05-12] MEDS: (Novolog) Insulin Aspart, Recombinant 100 u/ml 10 ml vial SC SCH ×4 (09:08→21:56)
--- NOTE | 2018-05-12 11:20 | CP.PCM.PN ---
Subjective - Date & Time of Evaluation Date of Evaluation: 05/12/18 Time of Evaluation: 11:17 - Subjective Subjective: Podiatry Progress Note for Dr. Guy 72M seen and evaluated at bedside for right hallux wound with osteomyelitis of hallux and second digit proximal phalanx base. Patient is AAO x 3 and NAD, resting comfortably in bed. States that he has no pain to the wound at this time. Denies any acute overnight events or new pedal complaints. Denies any recent nausea, vomiting, fever, chills, chest pain, shortness of breath, or diarrhea. Patient is aware that he is scheduled for surgery tomorrow morning for amputation of right first and possibly second digit. Patient to be NPO after midnight tonight Objective - Vital Signs/Intake and Output Vital Signs (last 24 hours): Temp Pulse Resp BP Pulse Ox 98.5 F 75 20 129/68 99 05/12/18 08:00 05/12/18 08:00 05/12/18 08:00 05/12/18 08:00 05/12/18 08:00 Intake and Output: 05/12/18 05/12/18 06:59 18:59 Intake Total 500 Output Total 700 Balance -200 - Medications Medications: Current Medications Amlodipine Besylate (Norvasc) 2.5 mg PO DAILY [facility] Last Admin: 05/12/18 10:22 Dose: 2.5 mg Aspirin (Aspirin Chewable) 81 mg PO DAILY [facility] Last Admin: 05/12/18 10:23 Dose: 81 mg Carvedilol (Coreg) 6.25 mg PO BID [facility] Last Admin: 05/12/18 10:23 Dose: 6.25 mg Clopidogrel Bisulfate (Plavix) 75 mg PO DAILY [facility] Last Admin: 05/10/18 09:18 Dose: 75 mg Cyclobenzaprine HCl (Flexeril) 10 mg PO TID [facility] Last Admin: 05/12/18 10:22 Dose: 10 mg Enoxaparin Sodium (Lovenox) 40 mg SC DAILY [facility] Last Admin: 05/05/18 09:46 Dose: 40 mg Glipizide (Glucotrol) 10 mg PO ACBD [facility] Last Admin: 05/12/18 09:08 Dose: 10 mg Guaifenesin/Dextromethorphan (Robitussin Dm) 10 ml PO Q4H PRN PRN Reason: Cough and congestion Hydrochlorothiazide (Hydrodiuril) 25 mg PO DAILY [facility] Last Admin: 05/10/18 09:25 Dose: 25 mg Piperacillin Sod/Tazobactam (Sod 3.375 gm/ Sodium Chloride) 100 mls @ 200 mls/hr IVPB Q8H [facility]; Protocol Last Admin: 05/12/18 05:11 Dose: 200 mls/hr Ibuprofen (Motrin Tab) 600 mg PO Q6H PRN PRN Reason: Pain, moderate (4-7) Last Admin: 05/08/18 00:31 Dose: 600 mg Insulin Aspart (Novolog) 0 unit SC ACHS [facility]; Protocol Last Admin: 05/12/18 09:08 Dose: 2 units Lisinopril (Zestril) 5 mg PO DAILY [facility] Last Admin: 05/12/18 10:22 Dose: 5 mg Metformin HCl (Glucophage) 1,000 mg PO BIDPC [facility] Last Admin: 05/12/18 09:08 Dose: 1,000 mg Rosuvastatin Calcium (Crestor) 2.5 mg PO HS [facility] Last Admin: 05/11/18 21:32 Dose: 2.5 mg Sodium Hypochlorite (Dakins Solution 0.125%) 0 appl TOP DAILY [facility] Last Admin: 05/12/18 10:24 Dose: 20 appl Spironolactone (Aldactone) 25 mg PO DAILY [facility] Last Admin: 05/12/18 10:23 Dose: 25 mg - Labs Labs: 05/10/18 07:03 05/10/18 07:03 PT 11.8 SECONDS (9.7-12.2) 05/07/18 09:49 INR 1.1 05/07/18 09:49 - Constitutional Appears: Well, Non-toxic, No Acute Distress - Extremities Exam Additional comments: LE focused exam: VASC: DP/PT pulses nonpalpable, temperature gradient warm to warm from proximal to distal WNL, CFT delayed >4 seconds to digits, non pitting edema noted to the R hallux clinically same ORTHO: No pain with palpation of ulceration at the hallux, no other gross deformities noted NEURO: Epicritic and protective sensation grossly diminished b/l DERM: unkempt lower extremity with hyperkertotic, scaly lesions to entire lower extremity; ulceration on dorsum of hallux measuring approximately 1 cm x 1cm x .3 cm with wound base mostly granular tissue, no erythema noted to foot at this time, no malodor appreciated, no active drainage or bleeding noted, no purulence, no abscess or fluctanance, xerosis to entire lower extremity; hypertrophic, nail discoloration with subungal debris x10 - Neurological Exam Neurological Exam: Alert, Awake, Oriented x3 - Psychiatric Exam Psychiatric exam: Normal Affect, Normal Mood Assessment and Plan - Assessment and Plan (Free Text) Assessment: 72M seen and evaluated at bedside for right hallux wound with osteomyelitis of hallux and second digit proximal phalanx base Plan: Patient seen and evaluated Plan discussed with Dr. Guy Afebrile, absent leukocytosis Wound cx toe: Streptococcus Viridans Continue abx per ID R foot xray: Findings suspicious for acute osteomyelitis 1st digit right foot. The finding is marked on the study for review. MRI highly suspicious for osteomyelitis of hallux distal and proximal phalanx as well as second digit proximal phalanx Vascular workup appreciated F/u INR Amputation of hallux and possible amputation of second digit tentatively scheduled for Saturday 05/[address] Guy at 7:30 Documentation of medical clearance for surgery by Medical team needed at this time Wound dressed with Dakins solution, DSD, zuleyka Podiatry will continue to follow while patient in house
[2018-05-12] MEDS ORDERED: Silver Nitrate Topical - Stick TOP ONE (12:35)
--- NOTE | 2018-05-12 14:26 | CP.PCM.PN ---
Subjective - Date & Time of Evaluation Date of Evaluation: 05/12/18 Time of Evaluation: 08:00 - Subjective Subjective: awake alert afeb nad Objective - Vital Signs/Intake and Output Vital Signs (last 24 hours): Temp Pulse Resp BP Pulse Ox 98.5 F 75 20 129/68 99 05/12/18 08:00 05/12/18 08:00 05/12/18 08:00 05/12/18 08:00 05/12/18 08:00 Intake and Output: 05/12/18 05/12/18 06:59 18:59 Intake Total 500 Output Total 700 Balance -200 - Medications Medications: Current Medications Amlodipine Besylate (Norvasc) 2.5 mg PO DAILY [facility] Last Admin: 05/12/18 10:22 Dose: 2.5 mg Aspirin (Aspirin Chewable) 81 mg PO DAILY [facility] Last Admin: 05/12/18 10:23 Dose: 81 mg Carvedilol (Coreg) 6.25 mg PO BID [facility] Last Admin: 05/12/18 10:23 Dose: 6.25 mg Clopidogrel Bisulfate (Plavix) 75 mg PO DAILY [facility] Last Admin: 05/10/18 09:18 Dose: 75 mg Cyclobenzaprine HCl (Flexeril) 10 mg PO TID [facility] Last Admin: 05/12/18 14:17 Dose: 10 mg Enoxaparin Sodium (Lovenox) 40 mg SC DAILY [facility] Last Admin: 05/05/18 09:46 Dose: 40 mg Glipizide (Glucotrol) 10 mg PO ACBD [facility] Last Admin: 05/12/18 09:08 Dose: 10 mg Guaifenesin/Dextromethorphan (Robitussin Dm) 10 ml PO Q4H PRN PRN Reason: Cough and congestion Hydrochlorothiazide (Hydrodiuril) 25 mg PO DAILY [facility] Last Admin: 05/10/18 09:25 Dose: 25 mg Piperacillin Sod/Tazobactam (Sod 3.375 gm/ Sodium Chloride) 100 mls @ 200 mls/hr IVPB Q8H [facility]; Protocol Last Admin: 05/12/18 14:16 Dose: 200 mls/hr Ibuprofen (Motrin Tab) 600 mg PO Q6H PRN PRN Reason: Pain, moderate (4-7) Last Admin: 05/08/18 00:31 Dose: 600 mg Insulin Aspart (Novolog) 0 unit SC ACHS [facility]; Protocol Last Admin: 05/12/18 12:50 Dose: 1 units Lisinopril (Zestril) 5 mg PO DAILY [facility] Last Admin: 05/12/18 10:22 Dose: 5 mg Metformin HCl (Glucophage) 1,000 mg PO BIDPC [facility] Last Admin: 05/12/18 09:08 Dose: 1,000 mg Rosuvastatin Calcium (Crestor) 2.5 mg PO HS [facility] Last Admin: 05/11/18 21:32 Dose: 2.5 mg Sodium Hypochlorite (Dakins Solution 0.125%) 0 appl TOP DAILY [facility] Last Admin: 05/12/18 10:24 Dose: 20 appl Spironolactone (Aldactone) 25 mg PO DAILY [facility] Last Admin: 05/12/18 10:23 Dose: 25 mg - Labs Labs: 05/10/18 07:03 05/10/18 07:03 PT 11.8 SECONDS (9.7-12.2) 05/07/18 09:49 INR 1.1 05/07/18 09:49 - Constitutional Appears: Non-toxic, Chronically Ill - Head Exam Head Exam: ATRAUMATIC, NORMAL INSPECTION, NORMOCEPHALIC - Eye Exam Eye Exam: EOMI, Normal appearance, PERRL Pupil Exam: NORMAL ACCOMODATION, PERRL - ENT Exam ENT Exam: Mucous Membranes Moist, Normal Exam - Neck Exam Neck Exam: Full ROM, Normal Inspection. absent: Lymphadenopathy - Respiratory Exam Respiratory Exam: Clear to Ausculation Bilateral, NORMAL BREATHING PATTERN - Cardiovascular Exam Cardiovascular Exam: REGULAR RHYTHM, +S1, +S2. absent: Murmur - GI/Abdominal Exam GI & Abdominal Exam: Soft, Normal Bowel Sounds. absent: Tenderness - Rectal Exam Rectal Exam: Deferred - Exam Exam: NORMAL INSPECTION - Extremities Exam Extremities Exam: Full ROM, Normal Capillary Refill, Normal Inspection. absent: Joint Swelling, Pedal Edema - Back Exam Back Exam: NORMAL INSPECTION - Neurological Exam Neurological Exam: Alert, Awake, CN II-XII Intact, Normal Gait, Oriented x3 - Psychiatric Exam Psychiatric exam: Normal Affect, Normal Mood - Skin Skin Exam: Dry, Intact, Normal Color, Warm Assessment and Plan (1) Osteomyelitis of toe of right foot Status: Acute (2) CHF (congestive heart failure) Status: Acute (3) Cellulitis Status: Acute (4) Foot ulcer due to secondary DM Status: Acute (5) Hypertension Status: Acute - Assessment and Plan (Free Text) Assessment: for OR /amp then 7 days IV rx orders signed
[2018-05-12 19:00] LABS: PROTHROMBIN TIME 11.4 SECONDS (9.7-12.2)
[2018-05-12] MEDS: Rosuvastatin Calcium 2.5 mg Tab PO SCH (21:10)
--- NOTE | 2018-05-12 21:49 | CARD ---
APPROVED REPORT Date of service: 05/11/2018 EXAM: Two-dimensional and M-mode echocardiogram with Doppler and color Doppler. Other Information Quality : AverageRhythm : NSR INDICATION Dyspnea Pre-Op CAD Murmur Congestive Heart Failure RBBB RISK FACTORS Hypertension Hyperlipidemia Diabetes 2D DIMENSIONS IVSd1.2 (0.7-1.1cm)Aortic Root (2D)3.0 (2.0-3.7cm) LVDd4.8 (3.9-5.9cm)PWd1.2 (0.7-1.1cm) LA [id number] (18-58mL)LVDs3.6 (2.5-4.0cm) FS (%) 25.2 %LVEF (%)49.6 (>50%) M-Mode DIMENSIONS Left Atrium (MM)4.53 (2.5-4.0cm)Aortic Root3.32 (2.2-3.7cm) Aortic Cusp Exc.1.60 (1.5-2.0cm) Aortic Valve AoV Peak Nxmstjuf554.2cm/Mesha Peak GR.6mmHg Mitral Valve MV E Ebkbkmax40.2cm/sMV A Jzaxhpcc02.7cm/sE/A ratio0.7 TDI E/Lateral E'0.0E/Medial E'0.0 <Conclusion> Suboptimal study Left ventricle: thickness: mild concentric thickening; size: normal; overall ejection fraction: 50%: diastolic filling pressures: normal Mitral valve: annulus: normal: leaflets: normal: excursion: normal; no significant trans-mitral gradient: no significant incompetence: left atrium: dilated Aortic valve: leaflets:thickened; excursion: normal; no significant trans-aortic gradient: No significant incompetence: aortic root: normal Right sided Structures: Pulmonary valve: normal; no significant incompetence; Tricuspid valve: normal; no significant incompetence: Intra-cardiac hemodynamics: pulmonary systolic pressures: normal; central venous pressures: normal No pericardial effusion
--- NOTE | 2018-05-13 07:01 | PN ---
DATE: 05/12/2018 The patient is scheduled for OR tomorrow and the patient . The patient may go for surgery under Dr. Guy's service. Elliot Olivarez MD
--- NOTE | 2018-05-13 07:09 | CP.PCM.PN ---
Subjective - Date & Time of Evaluation Date of Evaluation: 05/13/18 Time of Evaluation: 09:00 - Subjective Subjective: Medicine Progress Note for Dr. Olivarez: Patient was seen and examined at bedside s/p amputation of right foot hallux. Patient states he was feeling well and denied pain. Objective - Vital Signs/Intake and Output Vital Signs (last 24 hours): Temp Pulse Resp BP Pulse Ox 98.8 F 81 18 137/83 97 05/13/18 00:00 05/13/18 00:00 05/13/18 00:00 05/13/18 00:00 05/13/18 00:00 Intake and Output: 05/13/18 05/13/18 06:59 18:59 Intake Total 0 Balance 0 - Medications Medications: Current Medications Amlodipine Besylate (Norvasc) 2.5 mg PO DAILY [facility] Last Admin: 05/12/18 10:22 Dose: 2.5 mg Aspirin (Aspirin Chewable) 81 mg PO DAILY [facility] Last Admin: 05/12/18 10:23 Dose: 81 mg Carvedilol (Coreg) 6.25 mg PO BID [facility] Last Admin: 05/12/18 17:20 Dose: 6.25 mg Clopidogrel Bisulfate (Plavix) 75 mg PO DAILY [facility] Last Admin: 05/10/18 09:18 Dose: 75 mg Cyclobenzaprine HCl (Flexeril) 10 mg PO TID [facility] Last Admin: 05/12/18 17:21 Dose: 10 mg Enoxaparin Sodium (Lovenox) 40 mg SC DAILY [facility] Last Admin: 05/05/18 09:46 Dose: 40 mg Glipizide (Glucotrol) 10 mg PO ACBD [facility] Last Admin: 05/12/18 17:20 Dose: 10 mg Guaifenesin/Dextromethorphan (Robitussin Dm) 10 ml PO Q4H PRN PRN Reason: Cough and congestion Hydrochlorothiazide (Hydrodiuril) 25 mg PO DAILY [facility] Last Admin: 05/10/18 09:25 Dose: 25 mg Ibuprofen (Motrin Tab) 600 mg PO Q6H PRN PRN Reason: Pain, moderate (4-7) Last Admin: 05/08/18 00:31 Dose: 600 mg Insulin Aspart (Novolog) 0 unit SC [facility]; Protocol Last Admin: 05/12/18 21:56 Dose: Not Given Lisinopril (Zestril) 5 mg PO DAILY [facility] Last Admin: 05/12/18 10:22 Dose: 5 mg Metformin HCl (Glucophage) 1,000 mg PO BIDPC [facility] Last Admin: 05/12/18 17:20 Dose: 1,000 mg Rosuvastatin Calcium (Crestor) 2.5 mg PO HS [facility] Last Admin: 05/12/18 21:10 Dose: 2.5 mg Sodium Hypochlorite (Dakins Solution 0.125%) 0 appl TOP DAILY [facility] Last Admin: 05/12/18 10:24 Dose: 20 appl Spironolactone (Aldactone) 25 mg PO DAILY [facility] Last Admin: 05/12/18 10:23 Dose: 25 mg - Labs Labs: 05/10/18 07:03 05/10/18 07:03 PT 11.4 SECONDS (9.7-12.2) 05/12/18 18:45 INR 1.0 05/12/18 18:45 APTT 37 SECONDS (21-34) H 05/12/18 18:45 - Constitutional Appears: No Acute Distress - Head Exam Head Exam: ATRAUMATIC, NORMAL INSPECTION - Eye Exam Eye Exam: EOMI, Normal appearance - ENT Exam ENT Exam: Mucous Membranes Moist - Respiratory Exam Respiratory Exam: Clear to Ausculation Bilateral, NORMAL BREATHING PATTERN - Cardiovascular Exam Cardiovascular Exam: REGULAR RHYTHM, +S1, +S2 - GI/Abdominal Exam GI & Abdominal Exam: Soft, Normal Bowel Sounds. absent: Tenderness - Extremities Exam Additional comments: right LE dressing - c/d/i - Neurological Exam Neurological Exam: Alert, Awake, Oriented x3 - Psychiatric Exam Psychiatric exam: Normal Affect - Skin Skin Exam: Normal Color Assessment and Plan - Assessment and Plan (Free Text) Assessment: 72 year old male with a past medical history of diabetes, hypertension, chf, and cellulitis presents with toe bleeding. Found to have osteomyeolitis Plan: Osteomyelitis of first digit of right foot - Stable, afebrile - ID on consult, Dr Kohli, help appreciated - Podiatry on consult, Dr Guy, help appreciated - s/p 05/13/18: Right foot hallux amputation with first metatarsal head resection, second digit amputation - S/P angiogram 05/04/18 - wound culture grew strep viridans - Blood cultures showing no growth x 5 days - Medications * Vancomycin - discontinued * Zosyn 3.375 Q8H IVPB - stop date --> May 20 Imaging: - MRI highly suspicious for osteomyelitis of hallux distal and proximal phalanx as well as second digit proximal phalanx - Foot xray:Findings suspicious for acute osteomyelitis 1st digit right foot. The finding is marked on the study for review. - CTA of bilateral lower extremities: moderate diffuse atherosclerotic disease. Foci of mild stenosis in both SFA. Three vessel runoff in both legs. Cirrhotic manifestation of liver. Peripheral Vascular Disease - S/P angiogram POD#2 that showed mild to moderate peripheral vascualr occlusive disease - Cardiology Consult: Dr. Alvarez --> help appreciated - ECHO 05/12/18: EF 50%; left ventricle thickness; mild concentric thickening - Continue ASA 81mg PO daily - Plavix 75mg PO daily - hold - Crestor 2.5mg PO HS Diabetes Mellitus - Continue Metformin 1000 mg PO BID - Continue Glipizide 10mg PO ACBD [facility] - ISS ACHS Hypertension - Hydrochlorothiazide 25mg PO DAILY - Continue Lisinopril 5mg PO Daily - Continue Coreg 6.25mg PO BID [facility] - Amlodipine 2.5mg po daily Hyperlipidemia - Continue Crestor 2.5mg PO HS [facility] Cirrhosis - Continue Aldactone 25mg PO DAILY [facility] - Aspirin 81mg PO DAILY - Plavix 75 mg PO DAILY - hold GI/DVT ppx - Lovenox 40mg SC DAILY [facility] - hold - GI ppx not indicated at this time Disposition: pending GAMALIEL placement; Zosyn 3.375 Q8H IVPB - stop date --> May [address] Sher Sibley PGY-2
[2018-05-13] MEDS: Bupivacaine HCl 0.5% PF (10 ml) Inj ONE ×2 (07:20→07:50)
[2018-05-13] MEDS: (Novolog) Insulin Aspart, Recombinant 100 u/ml 10 ml vial SC SCH ×4 (07:33→21:27)
[2018-05-13] MEDS ORDERED: ceFAZolin 1 gm in NS 2 GM/200 ML BAG IVPB ONE (07:42)
[2018-05-13] MEDS ORDERED: Lidocaine 2% MPF (5 ml) Inj ONE ×2 (07:42)
[2018-05-13] MEDS ORDERED: Midazolam 2 MG/2 ML VIAL ONE (07:59)
[2018-05-13] MEDS ORDERED: Propofol 10 mg/ml Inj (20 ML) ONE (07:59)
--- NOTE | 2018-05-13 08:21 | CP.PCM.PN ---
Subjective - Date & Time of Evaluation Date of Evaluation: 05/13/18 Time of Evaluation: 08:21 - Subjective Subjective: plan for OR today for hallux sx Objective - Vital Signs/Intake and Output Vital Signs (last 24 hours): Temp Pulse Resp BP Pulse Ox 97.9 F 77 20 144/81 99 05/13/18 07:53 05/13/18 07:53 05/13/18 07:53 05/13/18 07:53 05/13/18 07:53 Intake and Output: 05/13/18 05/13/18 06:59 18:59 Intake Total 0 Balance 0 - Medications Medications: Current Medications Amlodipine Besylate (Norvasc) 2.5 mg PO DAILY [facility] Last Admin: 05/12/18 10:22 Dose: 2.5 mg Aspirin (Aspirin Chewable) 81 mg PO DAILY [facility] Last Admin: 05/12/18 10:23 Dose: 81 mg Carvedilol (Coreg) 6.25 mg PO BID [facility] Last Admin: 05/12/18 17:20 Dose: 6.25 mg Clopidogrel Bisulfate (Plavix) 75 mg PO DAILY [facility] Last Admin: 05/10/18 09:18 Dose: 75 mg Cyclobenzaprine HCl (Flexeril) 10 mg PO TID [facility] Last Admin: 05/12/18 17:21 Dose: 10 mg Enoxaparin Sodium (Lovenox) 40 mg SC DAILY [facility] Last Admin: 05/05/18 09:46 Dose: 40 mg Glipizide (Glucotrol) 10 mg PO ACBD [facility] Last Admin: 05/13/18 07:33 Dose: Not Given Guaifenesin/Dextromethorphan (Robitussin Dm) 10 ml PO Q4H PRN PRN Reason: Cough and congestion Hydrochlorothiazide (Hydrodiuril) 25 mg PO DAILY [facility] Last Admin: 05/10/18 09:25 Dose: 25 mg Ibuprofen (Motrin Tab) 600 mg PO Q6H PRN PRN Reason: Pain, moderate (4-7) Last Admin: 05/08/18 00:31 Dose: 600 mg Insulin Aspart (Novolog) 0 unit SC [facility]; Protocol Last Admin: 05/13/18 07:33 Dose: Not Given Lisinopril (Zestril) 5 mg PO DAILY [facility] Last Admin: 04/07/19 10:22 Dose: 5 mg Metformin HCl (Glucophage) 1,000 mg PO BIDPC [facility] Last Admin: 05/12/18 17:20 Dose: 1,000 mg Rosuvastatin Calcium (Crestor) 2.5 mg PO HS [facility] Last Admin: 05/12/18 21:10 Dose: 2.5 mg Sodium Hypochlorite (Dakins Solution 0.125%) 0 appl TOP DAILY [facility] Last Admin: 05/12/18 10:24 Dose: 20 appl Spironolactone (Aldactone) 25 mg PO DAILY [facility] Last Admin: 05/12/18 10:23 Dose: 25 mg - Labs Labs: 05/10/18 07:03 05/10/18 07:03 PT 11.4 SECONDS (9.7-12.2) 05/12/18 18:45 INR 1.0 05/12/18 18:45 APTT 37 SECONDS (21-34) H 05/12/18 18:45 - Constitutional Appears: Well - Head Exam Head Exam: ATRAUMATIC, NORMAL INSPECTION, NORMOCEPHALIC - Eye Exam Eye Exam: EOMI, Normal appearance, PERRL Pupil Exam: NORMAL ACCOMODATION, PERRL - ENT Exam ENT Exam: Mucous Membranes Moist, Normal Exam - Neck Exam Neck Exam: Full ROM, Normal Inspection. absent: Lymphadenopathy - Respiratory Exam Respiratory Exam: Clear to Ausculation Bilateral, NORMAL BREATHING PATTERN - Cardiovascular Exam Cardiovascular Exam: REGULAR RHYTHM, +S1, +S2. absent: Murmur - GI/Abdominal Exam GI & Abdominal Exam: Soft, Normal Bowel Sounds. absent: Tenderness - Extremities Exam Extremities Exam: Full ROM, Normal Capillary Refill, Normal Inspection. absent: Joint Swelling, Pedal Edema - Back Exam Back Exam: NORMAL INSPECTION - Neurological Exam Neurological Exam: Alert, Awake, CN II-XII Intact, Normal Gait, Oriented x3 - Psychiatric Exam Psychiatric exam: Normal Affect, Normal Mood - Skin Skin Exam: Dry, Intact, Normal Color, Warm Assessment and Plan (1) Osteomyelitis of toe of right foot Assessment & Plan: plan for amputation of hallux Status: Acute (2) CHF (congestive heart failure) Assessment & Plan: cont bb, acei Status: Acute (3) Cellulitis Assessment & Plan: abx per ID Status: Acute (4) Diabetes Status: Acute (5) Foot ulcer due to secondary DM Status: Acute (6) Hypertension Assessment & Plan: cont current bp meds Status: Acute
[2018-05-13] MEDS ORDERED: HYDROmorphone 0.5 mg/0.5 ml ISec IVP PRN (09:30)
--- NOTE | 2018-05-13 09:30 | PCM.SURG1 ---
Surgeon's Initial Post Op Note - Surgeon's Notes Surgeon: Dr. Guy, DPM Patternmaker: Dr. Faina Marroquin PGY1 Type of Anesthesia: General IV, Local Anesthesia Administered By: Dr. Johnson Pre-Operative Diagnosis: Right foot osteomyelitis of hallux and second digit proximal phalanx base Operative Findings: See dictation. I: pre-op: 20cc of 1:1 mix of 0.5% marcaine plain, 1% lidocaine plaine. M: 3-0 Vicryl, 4-0 Vicryl, 3-0 Nylon Post-Operative Diagnosis: Same Operation Performed: Right foot hallux amputation with first metatarsal head resection, second digit amputation Specimen/Specimens Removed: Hallux and second digit from right foot Estimated Blood Loss: EBL {In ML}: 30 Blood Products Given: N/A Drains Used: No Drains Post-Op Condition: Good Date of Surgery/Procedure: 05/13/18 Time of Surgery/Procedure: 09:32
[2018-05-13] MEDS ORDERED: Oxycodone/Acetaminophen 5/325 mg Tab PO PRN ×2 (09:34)
[2018-05-13 10:40] VITALS: RESP 20
--- NOTE | 2018-05-13 12:13 | CP.PCM.PN ---
Subjective - Date & Time of Evaluation Date of Evaluation: 05/13/18 Time of Evaluation: 09:00 - Subjective Subjective: s/p amp for GAMALIEL cont IV rx Objective - Vital Signs/Intake and Output Vital Signs (last 24 hours): Temp Pulse Resp BP Pulse Ox 98.1 F 71 20 138/80 98 05/13/18 10:39 05/13/18 10:39 05/13/18 10:39 05/13/18 10:39 05/13/18 10:39 Intake and Output: 05/13/18 05/13/18 06:59 18:59 Intake Total 0 600 Balance 0 600 - Medications Medications: Current Medications Acetaminophen (Tylenol 325mg Tab) 650 mg PO Q6 PRN PRN Reason: Pain, Mild (1-3) Amlodipine Besylate (Norvasc) 2.5 mg PO DAILY [facility] Last Admin: 05/13/18 11:30 Dose: 2.5 mg Aspirin (Aspirin Chewable) 81 mg PO DAILY [facility] Last Admin: 05/13/18 11:30 Dose: 81 mg Carvedilol (Coreg) 6.25 mg PO BID [facility] Last Admin: 05/13/18 11:30 Dose: 6.25 mg Clopidogrel Bisulfate (Plavix) 75 mg PO DAILY [facility] Last Admin: 05/10/18 09:18 Dose: 75 mg Cyclobenzaprine HCl (Flexeril) 10 mg PO TID [facility] Last Admin: 05/13/18 10:15 Dose: Not Given Enoxaparin Sodium (Lovenox) 40 mg SC DAILY [facility] Last Admin: 05/05/18 09:46 Dose: 40 mg Glipizide (Glucotrol) 10 mg PO ACBD [facility] Last Admin: 05/13/18 07:33 Dose: Not Given Guaifenesin/Dextromethorphan (Robitussin Dm) 10 ml PO Q4H PRN PRN Reason: Cough and congestion Hydrochlorothiazide (Hydrodiuril) 25 mg PO DAILY [facility] Last Admin: 05/10/18 09:25 Dose: 25 mg Ibuprofen (Motrin Tab) 600 mg PO Q6H PRN PRN Reason: Pain, moderate (4-7) Last Admin: 05/08/18 00:31 Dose: 600 mg Insulin Aspart (Novolog) 0 unit SC [facility]; Protocol Last Admin: 05/13/18 07:33 Dose: Not Given Lisinopril (Zestril) 5 mg PO DAILY [facility] Last Admin: 05/13/18 11:30 Dose: 5 mg Metformin HCl (Glucophage) 1,000 mg PO BIDPC [facility] Last Admin: 05/13/18 10:15 Dose: Not Given Oxycodone/Acetaminophen (Percocet 5/325 Mg Tab) 1 tab PO Q4H PRN PRN Reason: Pain, moderate (4-7) Stop: 05/16/18 09:35 Oxycodone/Acetaminophen (Percocet 5/325 Mg Tab) 2 tab PO Q4H PRN PRN Reason: Pain, severe (8-10) Stop: 05/16/18 09:35 Rosuvastatin Calcium (Crestor) 2.5 mg PO HS [facility] Last Admin: 05/12/18 21:10 Dose: 2.5 mg Sodium Hypochlorite (Dakins Solution 0.125%) 0 appl TOP DAILY [facility] Last Admin: 05/13/18 11:30 Dose: Not Given Spironolactone (Aldactone) 25 mg PO DAILY [facility] Last Admin: 05/13/18 11:30 Dose: 25 mg - Labs Labs: 05/10/18 07:03 05/10/18 07:03 PT 11.4 SECONDS (9.7-12.2) 05/12/18 18:45 INR 1.0 05/12/18 18:45 APTT 37 SECONDS (21-34) H 05/12/18 18:45 - Constitutional Appears: Non-toxic, No Acute Distress, Chronically Ill - Head Exam Head Exam: ATRAUMATIC, NORMAL INSPECTION, NORMOCEPHALIC - Eye Exam Eye Exam: EOMI, Normal appearance, PERRL Pupil Exam: NORMAL ACCOMODATION, PERRL - ENT Exam ENT Exam: Mucous Membranes Moist, Normal Exam - Neck Exam Neck Exam: Full ROM, Normal Inspection. absent: Lymphadenopathy - Respiratory Exam Respiratory Exam: Clear to Ausculation Bilateral, NORMAL BREATHING PATTERN - Cardiovascular Exam Cardiovascular Exam: REGULAR RHYTHM, +S1, +S2. absent: Murmur - GI/Abdominal Exam GI & Abdominal Exam: Soft, Normal Bowel Sounds. absent: Tenderness - Rectal Exam Rectal Exam: Deferred - Exam Exam: NORMAL INSPECTION - Extremities Exam Extremities Exam: Full ROM, Normal Capillary Refill, Normal Inspection. absent: Joint Swelling, Pedal Edema - Back Exam Back Exam: NORMAL INSPECTION - Neurological Exam Neurological Exam: Alert, Awake, CN II-XII Intact, Normal Gait, Oriented x3 - Psychiatric Exam Psychiatric exam: Normal Affect, Normal Mood - Skin Skin Exam: Dry, Intact, Normal Color, Warm Assessment and Plan (1) Osteomyelitis of toe of right foot Status: Acute (2) CHF (congestive heart failure) Status: Acute (3) Cellulitis Status: Acute (4) Foot ulcer due to secondary DM Status: Acute (5) Hypertension Status: Acute - Assessment and Plan (Free Text) Assessment: s/p amputation d/c on Zosyn follow up Dr Guy
--- NOTE | 2018-05-13 13:30 | RAD ---
Date of service: 05/13/2018 PROCEDURE: Right Foot Radiographs. HISTORY: s/p R 1st and 2nd digit amputation COMPARISON: 05/08/2018. MRI right foot. Summary of findings on the comparison examination: Findings compatible with osteomyelitis of the great toe including both proximal and distal phalanges as well as proximal phalanx 2nd digit. Multifocal myositis is seen in the plantar foot deep musculature primarily at mid foot distribution. TECHNIQUE: 3 views obtained. FINDINGS: BONES: Status post resection of 1st and 2nd digits. Satisfactory postoperative findings at the operative site and surrounding soft tissues. JOINTS: Degenerative changes, multiple hammertoe deformities 3rd 4th and 5th digits. SOFT TISSUES: Stents, presumed postoperative soft tissue OTHER FINDINGS: None. IMPRESSION: Satisfactory postoperative status.
[2018-05-13] MEDS ORDERED: Piperacillin/Tazobact 3.375 GM in Sodium Chloride 100 ML IVPB SCH (14:30)
[2018-05-13] MEDS: Piperacillin/Tazobact 3.375 GM in Sodium Chloride 100 ML IVPB SCH (16:48)
[2018-05-13] MEDS: Rosuvastatin Calcium 2.5 mg Tab PO SCH (22:00)
[2018-05-14] MEDS: Piperacillin/Tazobact 3.375 GM in Sodium Chloride 100 ML IVPB SCH ×4 (00:19→23:40)
[2018-05-14 06:27] LABS: BASO % 0.6 % (0.0-2.0); EOS # 0.1 K/uL (0.0-0.7); EOS % 1.2 % (0.0-4.0); LYMPH # 2.1 K/uL (1.0-4.3); LYMPH % 29.6 % (20.0-40.0); MEAN CELL VOLUME 88.5 fL (80.0-94.0); MEAN CORPUSCULAR HEMOGLOBIN 29.7 pg (27.0-31.0); MEAN CORPUSCULAR HGB CONC 33.6 g/dL (33.0-37.0); MONO # 0.9 K/uL (0.0-0.8); NEUT # 4.1 K/uL (1.8-7.0); NEUT % 56.6 % (50.0-75.0); RBC 4.04 Mil/uL (4.40-5.90); RED CELL DISTRIBUTION WIDTH 13.5 % (11.5-14.5); WHITE BLOOD COUNT 7.3 K/uL (4.8-10.8)
[2018-05-14 06:47] LABS: ALB/GLOB RATIO 1.4 (1.0-2.1); ALBUMIN 3.7 g/dL (3.5-5.0); ALT/SGPT 10 U/L (21-72); AST/SGOT 24 U/L (17-59); BLOOD UREA NITROGEN 17 mg/dL (9-20); CALCIUM 8.6 mg/dl (8.6-10.4); GFR NON-AFRICAN AMERICAN > 60
[2018-05-14] MEDS: (Novolog) Insulin Aspart, Recombinant 100 u/ml 10 ml vial SC SCH ×4 (07:57→22:26)
--- NOTE | 2018-05-14 10:36 | CP.PCM.PN ---
Subjective - Date & Time of Evaluation Date of Evaluation: 05/14/18 Time of Evaluation: 10:31 - Subjective Subjective: Podiatry Progress Note for Dr. Guy 72M seen and evaluated at bedside one day s/p right partial first ray amputation and right second digit amputation. Patient is AAO x 3 and NAD, resting comfortably in bed. Patient states that pain is well controlled at this time and denies needing to take any pain medications at this point. Denies any further pedal complaints or overnight events. Denies any recent N/V/F/C/CP/SOB/D Objective - Vital Signs/Intake and Output Vital Signs (last 24 hours): Temp Pulse Resp BP Pulse Ox 98.3 F 74 20 127/77 96 05/14/18 07:30 05/14/18 07:30 05/14/18 07:30 05/14/18 07:30 05/14/18 07:30 Intake and Output: 05/14/18 05/14/18 06:59 18:59 Intake Total 800 Balance 800 - Medications Medications: Current Medications Acetaminophen (Tylenol 325mg Tab) 650 mg PO Q6 PRN PRN Reason: Pain, Mild (1-3) Last Admin: 05/14/18 10:19 Dose: 650 mg Amlodipine Besylate (Norvasc) 2.5 mg PO DAILY [facility] Last Admin: 05/14/18 10:20 Dose: 2.5 mg Aspirin (Aspirin Chewable) 81 mg PO DAILY [facility] Last Admin: 05/14/18 10:19 Dose: 81 mg Carvedilol (Coreg) 6.25 mg PO BID [facility] Last Admin: 05/14/18 10:19 Dose: 6.25 mg Clopidogrel Bisulfate (Plavix) 75 mg PO DAILY [facility] Last Admin: 05/10/18 09:18 Dose: 75 mg Cyclobenzaprine HCl (Flexeril) 10 mg PO TID [facility] Last Admin: 05/14/18 10:18 Dose: 10 mg Enoxaparin Sodium (Lovenox) 40 mg SC DAILY [facility] Last Admin: 05/05/18 09:46 Dose: 40 mg Glipizide (Glucotrol) 10 mg PO ACBD [facility] Last Admin: 05/14/18 07:58 Dose: Not Given Guaifenesin/Dextromethorphan (Robitussin Dm) 10 ml PO Q4H PRN PRN Reason: Cough and congestion Hydrochlorothiazide (Hydrodiuril) 25 mg PO DAILY [facility] Last Admin: 05/10/18 09:25 Dose: 25 mg Piperacillin Sod/Tazobactam (Sod 3.375 gm/ Sodium Chloride) 100 mls @ 200 mls /hr IVPB Q8H [facility]; Protocol Last Admin: 05/14/18 08:55 Dose: 200 mls/hr Ibuprofen (Motrin Tab) 600 mg PO Q6H PRN PRN Reason: Pain, moderate (4-7) Last Admin: 05/08/18 00:31 Dose: 600 mg Insulin Aspart (Novolog) 0 unit SC [facility]; Protocol Last Admin: 05/14/18 07:57 Dose: Not Given Lisinopril (Zestril) 5 mg PO DAILY [facility] Last Admin: 05/14/18 10:18 Dose: 5 mg Metformin HCl (Glucophage) 1,000 mg PO BIDPC [facility] Last Admin: 05/14/18 10:18 Dose: 1,000 mg Oxycodone/Acetaminophen (Percocet 5/325 Mg Tab) 1 tab PO Q4H PRN PRN Reason: Pain, moderate (4-7) Stop: 05/16/18 09:35 Oxycodone/Acetaminophen (Percocet 5/325 Mg Tab) 2 tab PO Q4H PRN PRN Reason: Pain, severe (8-10) Stop: 05/16/18 09:35 Rosuvastatin Calcium (Crestor) 2.5 mg PO HS [facility] Last Admin: 05/13/18 22:00 Dose: 2.5 mg Sodium Hypochlorite (Dakins Solution 0.125%) 0 appl TOP DAILY [facility] Last Admin: 05/14/18 10:21 Dose: 20 appl Spironolactone (Aldactone) 25 mg PO DAILY [facility] Last Admin: 05/14/18 10:19 Dose: 25 mg - Labs Labs: 05/14/18 06:16 05/14/18 06:16 PT 11.4 SECONDS (9.7-12.2) 05/12/18 18:45 INR 1.0 05/12/18 18:45 APTT 37 SECONDS (21-34) H 05/12/18 18:45 - Constitutional Appears: Well, Non-toxic, No Acute Distress - Extremities Exam Additional comments: LE focused exam: VASC: DP/PT pulses nonpalpable, temperature gradient warm to warm from proximal to distal WNL, CFT delayed >4 seconds to all remaining digits, minimal edema consistent with post-operative status appreciated to amputation site ORTHO:Minimal pain on palpation of amputation site WNL, Amputation of right first and second digits noted NEURO: Epicritic and protective sensation grossly diminished b/l DERM: Surgical incision noted to right foot for amputation of first and second digit. Skin edges well coapted with no evidence of dehiscence and with all sutures in place. No other gross deformities noted - Neurological Exam Neurological Exam: Alert, Awake, Oriented x3 - Psychiatric Exam Psychiatric exam: Normal Affect, Normal Mood Assessment and Plan - Assessment and Plan (Free Text) Assessment: 72M seen and evaluated at bedside one day s/p right partial first ray amputation and right second digit amputation Plan: Patient seen and evaluated with Dr. Guy Afebrile, absent leukocytosis Continue abx per ID F/u intraop cultures and pathology Post-operative xrays reviewed and found to be appropriate given operation performed Wound dressed with xeroform, ABD, DSD No plan for further surgical intervention at this time Podiatry will continue to follow while patient in house
--- NOTE | 2018-05-14 11:46 | CP.PCM.PN ---
Subjective - Date & Time of Evaluation Date of Evaluation: 05/14/18 Time of Evaluation: 09:00 - Subjective Subjective: s/p right partial first ray amputation and right second digit amputation. Patient is AAO x 3 and NAD Objective - Vital Signs/Intake and Output Vital Signs (last 24 hours): Temp Pulse Resp BP Pulse Ox 98.3 F 74 20 127/77 96 05/14/18 07:30 05/14/18 07:30 05/14/18 07:30 05/14/18 07:30 05/14/18 07:30 Intake and Output: 05/14/18 05/14/18 06:59 18:59 Intake Total 800 Balance 800 - Medications Medications: Current Medications Acetaminophen (Tylenol 325mg Tab) 650 mg PO Q6 PRN PRN Reason: Pain, Mild (1-3) Last Admin: 05/14/18 10:19 Dose: 650 mg Amlodipine Besylate (Norvasc) 2.5 mg PO DAILY [facility] Last Admin: 05/14/18 10:20 Dose: 2.5 mg Aspirin (Aspirin Chewable) 81 mg PO DAILY [facility] Last Admin: 05/14/18 10:19 Dose: 81 mg Carvedilol (Coreg) 6.25 mg PO BID [facility] Last Admin: 05/14/18 10:19 Dose: 6.25 mg Clopidogrel Bisulfate (Plavix) 75 mg PO DAILY [facility] Last Admin: 05/10/18 09:18 Dose: 75 mg Cyclobenzaprine HCl (Flexeril) 10 mg PO TID [facility] Last Admin: 05/14/18 10:18 Dose: 10 mg Enoxaparin Sodium (Lovenox) 40 mg SC DAILY [facility] Last Admin: 05/05/18 09:46 Dose: 40 mg Glipizide (Glucotrol) 10 mg PO ACBD [facility] Last Admin: 05/14/18 07:58 Dose: Not Given Guaifenesin/Dextromethorphan (Robitussin Dm) 10 ml PO Q4H PRN PRN Reason: Cough and congestion Hydrochlorothiazide (Hydrodiuril) 25 mg PO DAILY [facility] Last Admin: 05/10/18 09:25 Dose: 25 mg Piperacillin Sod/Tazobactam (Sod 3.375 gm/ Sodium Chloride) 100 mls @ 200 mls/hr IVPB Q8H [facility]; Protocol Last Admin: 05/14/18 08:55 Dose: 200 mls/hr Ibuprofen (Motrin Tab) 600 mg PO Q6H PRN PRN Reason: Pain, moderate (4-7) Last Admin: 05/08/18 00:31 Dose: 600 mg Insulin Aspart (Novolog) 0 unit SC [facility]; Protocol Last Admin: 05/14/18 07:57 Dose: Not Given Lisinopril (Zestril) 5 mg PO DAILY [facility] Last Admin: 05/14/18 10:18 Dose: 5 mg [facility] Last Admin: 05/14/18 10:18 Dose: 1,000 mg Oxycodone/Acetaminophen (Percocet 5/325 Mg Tab) 1 tab PO Q4H PRN PRN Reason: Pain, moderate (4-7) Stop: 05/16/18 09:35 Oxycodone/Acetaminophen (Percocet 5/325 Mg Tab) 2 tab PO Q4H PRN PRN Reason: Pain, severe (8-10) Stop: 05/16/18 09:35 Rosuvastatin Calcium (Crestor) 2.5 mg PO HS [facility] Last Admin: 05/13/18 22:00 Dose: 2.5 mg Sodium Hypochlorite (Dakins Solution 0.125%) 0 appl TOP DAILY [facility] Last Admin: 05/14/18 10:21 Dose: 20 appl Spironolactone (Aldactone) 25 mg PO DAILY [facility] Last Admin: 05/14/18 10:19 Dose: 25 mg - Labs Labs: 05/14/18 06:16 05/14/18 06:16 PT 11.4 SECONDS (9.7-12.2) 05/12/18 18:45 INR 1.0 05/12/18 18:45 APTT 37 SECONDS (21-34) H 05/12/18 18:45 - Constitutional Appears: Non-toxic, Chronically Ill - Head Exam Head Exam: NORMOCEPHALIC - Eye Exam Eye Exam: absent: Scleral icterus - ENT Exam ENT Exam: Mucous Membranes Dry - Neck Exam Neck Exam: absent: Lymphadenopathy - Respiratory Exam Respiratory Exam: Decreased Breath Sounds - Cardiovascular Exam Cardiovascular Exam: REGULAR RHYTHM - GI/Abdominal Exam GI & Abdominal Exam: Distended, Soft - Rectal Exam Rectal Exam: Deferred - Exam Exam: NORMAL INSPECTION - Extremities Exam Extremities Exam: Pedal Edema, Tenderness. absent: Calf Tenderness, Normal Inspection - Back Exam Back Exam: absent: CVA tenderness (L), CVA tenderness (R) - Neurological Exam Neurological Exam: Alert, Awake, CN II-XII Intact, Oriented x3 Assessment and Plan (1) Osteomyelitis of toe of right foot Status: Acute (2) CHF (congestive heart failure) Status: Acute (3) Cellulitis Status: Acute (4) Foot ulcer due to secondary DM Status: Acute (5) Hypertension Status: Acute - Assessment and Plan (Free Text) Assessment: s/p right partial first ray amputation and right second digit amputation. Patient is AAO x 3 and NAD cont IV antibiotics as ordered for GAMALIEL
--- NOTE | 2018-05-14 13:23 | CP.PCM.PN ---
Subjective - Date & Time of Evaluation Date of Evaluation: 05/14/18 Time of Evaluation: 09:40 - Subjective Subjective: Medicine note for Dr. Olivarez's service Patient was seen and examined at bedside as he was resting comfortably. Patient states that he is doing well and has no acute or new issues at the moment. Patient denies any symptoms of fever, chills, nausea, vomiting, chest pain, palpitations, diaphoresis, dizziness, abdominal pain, bowel changes or urinary symptoms. Patient is able to ambulate with his cane and walker. Patient is tolerating diet without any issues and pain is well controlled. Objective - Vital Signs/Intake and Output Vital Signs (last 24 hours): Temp Pulse Resp BP Pulse Ox 98.3 F 74 20 127/77 96 05/14/18 07:30 05/14/18 07:30 05/14/18 07:30 05/14/18 07:30 05/14/18 07:30 Intake and Output: 05/14/18 05/14/18 06:59 18:59 Intake Total 800 Balance 800 - Medications Medications: Current Medications Acetaminophen (Tylenol 325mg Tab) 650 mg PO Q6 PRN PRN Reason: Pain, Mild (1-3) Last Admin: 05/14/18 10:19 Dose: 650 mg Amlodipine Besylate (Norvasc) 2.5 mg PO DAILY [facility] Last Admin: 05/14/18 10:20 Dose: 2.5 mg Aspirin (Aspirin Chewable) 81 mg PO DAILY [facility] Last Admin: 05/14/18 10:19 Dose: 81 mg Carvedilol (Coreg) 6.25 mg PO BID [facility] Last Admin: 05/14/18 10:19 Dose: 6.25 mg Clopidogrel Bisulfate (Plavix) 75 mg PO DAILY [facility] Last Admin: 05/10/18 09:18 Dose: 75 mg Cyclobenzaprine HCl (Flexeril) 10 mg PO TID [facility] Last Admin: 05/14/18 10:18 Dose: 10 mg Enoxaparin Sodium (Lovenox) 40 mg SC DAILY [facility] Last Admin: 05/05/18 09:46 Dose: 40 mg Glipizide (Glucotrol) 10 mg PO ACBD [facility] Last Admin: 05/14/18 07:58 Dose: Not Given Guaifenesin/Dextromethorphan (Robitussin Dm) 10 ml PO Q4H PRN PRN Reason: Cough and congestion Hydrochlorothiazide (Hydrodiuril) 25 mg PO DAILY [facility] Last Admin: 05/10/18 09:25 Dose: 25 mg Piperacillin Sod/Tazobactam (Sod 3.375 gm/ Sodium Chloride) 100 mls @ 200 mls/hr IVPB Q8H [facility]; Protocol Last Admin: 05/14/18 08:55 Dose: 200 mls/hr Ibuprofen (Motrin Tab) 600 mg PO Q6H PRN PRN Reason: Pain, moderate (4-7) Last Admin: 05/08/18 00:31 Dose: 600 mg Insulin Aspart (Novolog) 0 unit SC ACHS [facility]; Protocol Last Admin: 05/14/18 12:25 Dose: Not Given Lisinopril (Zestril) 5 mg PO DAILY [facility] Last Admin: 05/14/18 10:18 Dose: 5 mg Metformin HCl (Glucophage) 1,000 mg PO BIDPC [facility] Last Admin: 05/14/18 10:18 Dose: 1,000 mg Oxycodone/Acetaminophen (Percocet 5/325 Mg Tab) 1 tab PO Q4H PRN PRN Reason: Pain, moderate (4-7) Stop: 05/16/18 09:35 Oxycodone/Acetaminophen (Percocet 5/325 Mg Tab) 2 tab PO Q4H PRN PRN Reason: Pain, severe (8-10) Stop: 05/16/18 09:35 Rosuvastatin Calcium (Crestor) 2.5 mg PO HS [facility] Last Admin: 05/13/18 22:00 Dose: 2.5 mg Sodium Hypochlorite (Dakins Solution 0.125%) 0 appl TOP DAILY [facility] Last Admin: 05/14/18 10:21 Dose: 20 appl Spironolactone (Aldactone) 25 mg PO DAILY [facility] Last Admin: 05/14/18 10:19 Dose: 25 mg - Labs Labs: 05/14/18 06:16 05/14/18 06:16 PT 11.4 SECONDS (9.7-12.2) 05/12/18 18:45 INR 1.0 05/12/18 18:45 APTT 37 SECONDS (21-34) H 05/12/18 18:45 - Constitutional Appears: Well, No Acute Distress - Head Exam Head Exam: ATRAUMATIC, NORMAL INSPECTION - Eye Exam Eye Exam: EOMI, Normal appearance - ENT Exam ENT Exam: Mucous Membranes Moist - Respiratory Exam Respiratory Exam: Clear to Ausculation Bilateral, NORMAL BREATHING PATTERN. absent: Decreased Breath Sounds, Prolonged Expiratory Phase, Rhonchi, Wheezes, Respiratory Distress - Cardiovascular Exam Cardiovascular Exam: REGULAR RHYTHM, +S1, +S2, Murmur - GI/Abdominal Exam GI & Abdominal Exam: Soft, Normal Bowel Sounds. absent: Distended, Firm, Guarding, Rigid, Tenderness - Extremities Exam Extremities Exam: absent: Calf Tenderness, Pedal Edema Additional comments: S/P right foot hallux and second digit proximal phalanx base POD #1 - Dressing is clean, dry and intact DP pulses weakly palpable Assessment and Plan (1) Osteomyelitis of toe of right foot Assessment & Plan: - Stable, Afebrile Consults: ID Dr Kohli, help appreciated Podiatry, Dr Guy, help appreciated - s/p 05/13/18: Right foot hallux amputation with first metatarsal head resection, second digit amputation Vascular, Dr. Alvarez - S/P angiogram 05/04/18, showed mild to moderate peripheral vascualr occlusive disease Labs: - Wound culture (05/03/18): Strep Viridans - Blood cultures (05/02/18): No growth X 5 days - Medications * Vancomycin - discontinued * Zosyn 3.375 Q8H IVPB - stop date --> May 20 Imaging: - MRI highly suspicious for osteomyelitis of hallux distal and proximal phalanx as well as second digit proximal phalanx - Foot xray:Findings suspicious for acute osteomyelitis 1st digit right foot. The finding is marked on the study for review. - CTA of bilateral lower extremities: moderate diffuse atherosclerotic disease. Foci of mild stenosis in both SFA. Three vessel runoff in both legs. Cirrhotic manifestation of liver. Status: Acute (2) Peripheral vascular disease Assessment & Plan: Consult: Dr. Alvarez---> Help appreciated - S/P angiogram (05/04/18): Mild to moderate peripheral vascualr occlusive disease - ECHO 05/12/18: EF 50%; left ventricle thickness; mild concentric thickening - Continue ASA 81mg PO daily - Plavix 75mg PO daily - hold - Crestor 2.5mg PO HS Status: Acute (3) Diabetes mellitus Assessment & Plan: HgbA1C (05/06/18): 10.9 Lipid Panel (05/06/18) - TGL: 225, Chol: 151, LDL: 62 and HDL: 59 Accuchecks ISS- low dose Continue Metformin 1000 mg PO BID Continue Glipizide 10mg PO ACBD [facility] Status: Acute (4) Hyperlipidemia Assessment & Plan: Lipid Panel (05/06/18) - TGL: 225, Chol: 151, LDL: 62 and HDL: 59 - Continue Crestor 2.5mg PO HS [facility] Status: Acute (5) Hypertension Assessment & Plan: - Hydrochlorothiazide 25mg PO DAILY (Currently held) - Continue Lisinopril 5mg PO Daily - Continue Coreg 6.25mg PO BID [facility] - Amlodipine 2.5mg po daily Status: Acute (6) Cirrhosis Assessment & Plan: - Continue Aldactone 25mg PO DAILY Status: Acute (7) CAD (coronary artery disease) Assessment & Plan: HgbA1C (05/06/18): 10.9 Lipid Panel (05/06/18) - TGL: 225, Chol: 151, LDL: 62 and HDL: 59 - Aspirin 81mg PO DAILY - Plavix 75 mg PO DAILY Status: Acute (8) Prophylactic measure Assessment & Plan: GI: Not indicated DVT: Lovenox 40mg SC daily; resume 05/15/18 Disposition: pending GAMALIEL placement; Zosyn 3.375 Q8H IVPB - stop date --> May 20 All plans and management discussed with Dr. Olivarez Status: Acute
--- NOTE | 2018-05-14 14:10 | CP.PCM.PN ---
Subjective - Date & Time of Evaluation Date of Evaluation: 05/14/18 Time of Evaluation: 14:09 - Subjective Subjective: s/p amputation Objective - Vital Signs/Intake and Output Vital Signs (last 24 hours): Temp Pulse Resp BP Pulse Ox 98.3 F 74 20 127/77 96 05/14/18 07:30 05/14/18 07:30 05/14/18 07:30 05/14/18 07:30 05/14/18 07:30 Intake and Output: 05/14/18 05/14/18 06:59 18:59 Intake Total 800 Balance 800 - Medications Medications: Current Medications Acetaminophen (Tylenol 325mg Tab) 650 mg PO Q6 PRN PRN Reason: Pain, Mild (1-3) Last Admin: 05/14/18 10:19 Dose: 650 mg Amlodipine Besylate (Norvasc) 2.5 mg PO DAILY [facility] Last Admin: 05/14/18 10:20 Dose: 2.5 mg Aspirin (Aspirin Chewable) 81 mg PO DAILY [facility] Last Admin: 05/14/18 10:19 Dose: 81 mg Carvedilol (Coreg) 6.25 mg PO BID [facility] Last Admin: 05/14/18 10:19 Dose: 6.25 mg Clopidogrel Bisulfate (Plavix) 75 mg PO DAILY [facility] Last Admin: 05/10/18 09:18 Dose: 75 mg Cyclobenzaprine HCl (Flexeril) 10 mg PO TID [facility] Last Admin: 05/14/18 10:18 Dose: 10 mg Enoxaparin Sodium (Lovenox) 40 mg SC DAILY [facility] Last Admin: 05/05/18 09:46 Dose: 40 mg Glipizide (Glucotrol) 10 mg PO ACBD [facility] Last Admin: 05/14/18 07:58 Dose: Not Given Guaifenesin/Dextromethorphan (Robitussin Dm) 10 ml PO Q4H PRN PRN Reason: Cough and congestion Hydrochlorothiazide (Hydrodiuril) 25 mg PO DAILY [facility] Last Admin: 05/10/18 09:25 Dose: 25 mg Piperacillin Sod/Tazobactam (Sod 3.375 gm/ Sodium Chloride) 100 mls @ 200 mls/hr IVPB Q8H [facility]; Protocol Last Admin: 05/14/18 08:55 Dose: 200 mls/hr Ibuprofen (Motrin Tab) 600 mg PO Q6H PRN PRN Reason: Pain, moderate (4-7) Last Admin: 05/08/18 00:31 Dose: 600 mg Insulin Aspart (Novolog) 0 unit SC [facility]; Protocol Last Admin: 05/14/18 12:25 Dose: Not Given Lisinopril (Zestril) 5 mg PO DAILY [facility] Last Admin: 05/14/18 10:18 Dose: 5 mg Metformin HCl (Glucophage) 1,000 mg PO BIDPC [facility] Last Admin: 05/14/18 10:18 Dose: 1,000 mg Oxycodone/Acetaminophen (Percocet 5/325 Mg Tab) 1 tab PO Q4H PRN PRN Reason: Pain, moderate (4-7) Stop: 05/16/18 09:35 Oxycodone/Acetaminophen (Percocet 5/325 Mg Tab) 2 tab PO Q4H PRN PRN Reason: Pain, severe (8-10) Stop: 05/16/18 09:35 Rosuvastatin Calcium (Crestor) 2.5 mg PO HS [facility] Last Admin: 05/13/18 22:00 Dose: 2.5 mg Sodium Hypochlorite (Dakins Solution 0.125%) 0 appl TOP DAILY [facility] Last Admin: 05/14/18 10:21 Dose: 20 appl Spironolactone (Aldactone) 25 mg PO DAILY [facility] Last Admin: 05/14/18 10:19 Dose: 25 mg - Labs Labs: 05/14/18 06:16 05/14/18 06:16 PT 11.4 SECONDS (9.7-12.2) 05/12/18 18:45 INR 1.0 05/12/18 18:45 APTT 37 SECONDS (21-34) H 05/12/18 18:45 - Constitutional Appears: Well - Head Exam Head Exam: ATRAUMATIC, NORMAL INSPECTION, NORMOCEPHALIC - Eye Exam Eye Exam: EOMI, Normal appearance, PERRL Pupil Exam: NORMAL ACCOMODATION, PERRL - ENT Exam ENT Exam: Mucous Membranes Moist, Normal Exam - Neck Exam Neck Exam: Full ROM, Normal Inspection. absent: Lymphadenopathy - Respiratory Exam Respiratory Exam: Clear to Ausculation Bilateral, NORMAL BREATHING PATTERN - Cardiovascular Exam Cardiovascular Exam: REGULAR RHYTHM, +S1, +S2. absent: Murmur - GI/Abdominal Exam GI & Abdominal Exam: Soft, Normal Bowel Sounds. absent: Tenderness - Extremities Exam Extremities Exam: Full ROM, Normal Capillary Refill, Normal Inspection. absent: Joint Swelling, Pedal Edema - Back Exam Back Exam: NORMAL INSPECTION - Neurological Exam Neurological Exam: Alert, Awake, CN II-XII Intact, Oriented x3 - Psychiatric Exam Psychiatric exam: Normal Affect, Normal Mood - Skin Skin Exam: Dry, Intact, Normal Color, Warm Assessment and Plan (1) Osteomyelitis of toe of right foot Assessment & Plan: s/p amputation Abx per ID Status: Acute (2) CHF (congestive heart failure) Status: Acute (3) Cellulitis Status: Acute (4) Diabetes Status: Acute (5) Foot ulcer due to secondary DM Status: Acute (6) Hypertension Status: Acute
[2018-05-14] MEDS: Rosuvastatin Calcium 2.5 mg Tab PO SCH (21:39)
[2018-05-15 07:17] LABS: BASO % 0.5 % (0.0-2.0); EOS # 0.1 K/uL (0.0-0.7); EOS % 0.9 % (0.0-4.0); HEMOGLOBIN 11.7 g/dL (12.0-18.0); LYMPH # 2.1 K/uL (1.0-4.3); LYMPH % 30.3 % (20.0-40.0); MEAN CELL VOLUME 89.1 fL (80.0-94.0); MEAN CORPUSCULAR HEMOGLOBIN 30.5 pg (27.0-31.0); MEAN CORPUSCULAR HGB CONC 34.2 g/dL (33.0-37.0); MEAN PLATELET VOLUME 9.3 fL (7.2-11.7); MONO # 0.8 K/uL (0.0-0.8); NEUT # 3.9 K/uL (1.8-7.0); NEUT % 56.3 % (50.0-75.0); RBC 3.85 Mil/uL (4.40-5.90); RED CELL DISTRIBUTION WIDTH 13.4 % (11.5-14.5); WHITE BLOOD COUNT 6.9 K/uL (4.8-10.8)
[2018-05-15 07:33] VITALS: PULSE 69
[2018-05-15 07:39] LABS: ALB/GLOB RATIO 1.2 (1.0-2.1); ALBUMIN 3.6 g/dL (3.5-5.0); ALT/SGPT 9 U/L (21-72); AST/SGOT 26 U/L (17-59); BLOOD UREA NITROGEN 17 mg/dL (9-20); CALCIUM 8.9 mg/dl (8.6-10.4); GFR NON-AFRICAN AMERICAN > 60
[2018-05-15] MEDS: (Novolog) Insulin Aspart, Recombinant 100 u/ml 10 ml vial SC SCH ×3 (07:41→20:06)
[2018-05-15] MEDS: Piperacillin/Tazobact 3.375 GM in Sodium Chloride 100 ML IVPB SCH ×2 (08:12→16:33)
--- NOTE | 2018-05-15 09:24 | CP.PCM.PN ---
Subjective - Date & Time of Evaluation Date of Evaluation: 05/15/18 Time of Evaluation: 08:00 - Subjective Subjective: Medicine Progress Note for Dr. Olivarez: Patient was seen and examined at bedside in the AM. No acute overnight events. Patient states he is feeling well and denies pain. He has not had a bowel movement s/p his surgery but states he is passing flatus. Patient is tolerating his diet. He denies nausea, vomiting, fever or chills. Objective - Vital Signs/Intake and Output Vital Signs (last 24 hours): Temp Pulse Resp BP Pulse Ox 98.2 F 69 20 152/84 H 98 05/15/18 07:00 05/15/18 07:00 05/15/18 07:00 05/15/18 07:00 05/15/18 07:00 Intake and Output: 05/15/18 05/15/18 06:59 18:59 Intake Total 790 Output Total 800 Balance -10 - Medications Medications: Current Medications Acetaminophen (Tylenol 325mg Tab) 650 mg PO Q6 PRN PRN Reason: Pain, Mild (1-3) Last Admin: 05/14/18 10:19 Dose: 650 mg Amlodipine Besylate (Norvasc) 2.5 mg PO DAILY [facility] Last Admin: 05/14/18 10:20 Dose: 2.5 mg Aspirin (Aspirin Chewable) 81 mg PO DAILY [facility] Last Admin: 05/14/18 10:19 Dose: 81 mg Carvedilol (Coreg) 6.25 mg PO BID [facility] Last Admin: 05/14/18 17:25 Dose: 6.25 mg Clopidogrel Bisulfate (Plavix) 75 mg PO DAILY [facility] Last Admin: 05/10/18 09:18 Dose: 75 mg Cyclobenzaprine HCl (Flexeril) 10 mg PO TID [facility] Last Admin: 05/14/18 17:25 Dose: 10 mg Enoxaparin Sodium (Lovenox) 40 mg SC DAILY [facility] Last Admin: 05/05/18 09:46 Dose: 40 mg Glipizide (Glucotrol) 10 mg PO ACBD [facility] Last Admin: 05/15/18 07:41 Dose: 10 mg Guaifenesin/Dextromethorphan (Robitussin Dm) 10 ml PO Q4H PRN PRN Reason: Cough and congestion Hydrochlorothiazide (Hydrodiuril) 25 mg PO DAILY [facility] Last Admin: 05/10/18 09:25 Dose: 25 mg Piperacillin Sod/Tazobactam (Sod 3.375 gm/ Sodium Chloride) 100 mls @ 200 mls/hr IVPB Q8H [facility]; Protocol Last Admin: 05/15/18 08:12 Dose: 200 mls/hr Ibuprofen (Motrin Tab) 600 mg PO Q6H PRN PRN Reason: Pain, moderate (4-7) Last Admin: 05/08/18 00:31 Dose: 600 mg Insulin Aspart (Novolog) 0 unit SC ACHS [facility]; Protocol Last Admin: 05/15/18 07:41 Dose: 1 units Lisinopril (Zestril) 5 mg PO DAILY [facility] Last Admin: 05/14/18 10:18 Dose: 5 mg Metformin HCl (Glucophage) 1,000 mg PO BIDPC [facility] Last Admin: 05/14/18 17:25 Dose: 1,000 mg Oxycodone/Acetaminophen (Percocet 5/325 Mg Tab) 1 tab PO Q4H PRN PRN Reason: Pain, moderate (4-7) Stop: 05/16/18 09:35 Oxycodone/Acetaminophen (Percocet 5/325 Mg Tab) 2 tab PO Q4H PRN PRN Reason: Pain, severe (8-10) Stop: 05/16/18 09:35 Rosuvastatin Calcium (Crestor) 2.5 mg PO HS [facility] Last Admin: 05/14/18 21:39 Dose: 2.5 mg Sodium Hypochlorite (Dakins Solution 0.125%) 0 appl TOP DAILY [facility] Last Admin: 05/14/18 10:21 Dose: 20 appl Spironolactone (Aldactone) 25 mg PO DAILY [facility] Last Admin: 05/14/18 10:19 Dose: 25 mg - Labs Labs: 05/15/18 06:51 05/15/18 06:51 PT 11.4 SECONDS (9.7-12.2) 05/12/18 18:45 INR 1.0 05/12/18 18:45 APTT 37 SECONDS (21-34) H 05/12/18 18:45 - Constitutional Appears: No Acute Distress - Head Exam Head Exam: ATRAUMATIC, NORMAL INSPECTION - Eye Exam Eye Exam: EOMI, Normal appearance - ENT Exam ENT Exam: Mucous Membranes Moist - Respiratory Exam Respiratory Exam: Clear to Ausculation Bilateral, NORMAL BREATHING PATTERN - Cardiovascular Exam Cardiovascular Exam: REGULAR RHYTHM, +S1, +S2 - GI/Abdominal Exam GI & Abdominal Exam: Soft, Normal Bowel Sounds. absent: Tenderness - Extremities Exam Additional comments: S/P right foot hallux and second digit proximal phalanx base POD #2 - Dressing is clean, dry and intact - Neurological Exam Neurological Exam: Alert, Awake, Oriented x3 - Psychiatric Exam Psychiatric exam: Normal Affect Assessment and Plan - Assessment and Plan (Free Text) Assessment: 72 year old male with a past medical history of diabetes, hypertension, chf, and cellulitis presents with toe bleeding. Found to have osteomyeolitis Plan: Osteomyelitis of first digit of right foot - Stable, afebrile - ID on consult, Dr Kohli, help appreciated - Podiatry on consult, Dr uGy, help appreciated - s/p 05/13/18: Right foot hallux amputation with first metatarsal head resection, second digit amputation - S/P angiogram 05/04/18 - wound culture grew strep viridans - Blood cultures showing no growth x 5 days - Medications * Vancomycin - discontinued * Zosyn 3.375 Q8H IVPB - stop date --> May 20 Imaging: - MRI highly suspicious for osteomyelitis of hallux distal and proximal phalanx as well as second digit proximal phalanx - Foot xray:Findings suspicious for acute osteomyelitis 1st digit right foot. The finding is marked on the study for review. - CTA of bilateral lower extremities: moderate diffuse atherosclerotic disease. Foci of mild stenosis in both SFA. Three vessel runoff in both legs. Cirrhotic manifestation of liver. Peripheral Vascular Disease - S/P angiogram POD#2 that showed mild to moderate peripheral vascualr occlusive disease - Cardiology Consult: Dr. Alvarez --> help appreciated - ECHO 05/12/18: EF 50%; left ventricle thickness; mild concentric thickening - Continue ASA 81mg PO daily - Plavix 75mg PO daily - Crestor 2.5mg PO HS Diabetes Mellitus HgbA1C (05/06/18): 10.9 - Continue Metformin 1000 mg PO BID - Continue Glipizide 10mg PO ACBD [facility] - ISS ACHS Hypertension - Hydrochlorothiazide 25mg PO DAILY - Continue Lisinopril 5mg PO Daily - Continue Coreg 6.25mg PO BID [facility] - Amlodipine 2.5mg po daily Hyperlipidemia Lipid Panel (05/06/18) - TGL: 225, Chol: 151, LDL: 62 and HDL: 59 - Continue Crestor 2.5mg PO HS [facility] Cirrhosis - Continue Aldactone 25mg PO DAILY CAD HgbA1C (05/06/18): 10.9 Lipid Panel (05/06/18) - TGL: 225, Chol: 151, LDL: 62 and HDL: 59 - Aspirin 81mg PO DAILY - Plavix 75 mg PO DAILY GI/DVT ppx - Lovenox 40mg SC DAILY [facility] - GI ppx not indicated at this time Disposition: pending GAMALIEL placement; Zosyn 3.375 Q8H IVPB - stop date --> May [address] Sher Sibley PGY-2
[2018-05-15] MEDS ORDERED: Enoxaparin 40 mg Syringe SC SCH (10:15)
--- NOTE | 2018-05-15 15:57 | CP.PCM.PN ---
Subjective - Date & Time of Evaluation Date of Evaluation: 05/15/18 Time of Evaluation: 15:54 - Subjective Subjective: Podiatry Progress Note for Dr. Guy 72M seen and evaluated at bedside two days s/p right partial first ray amputation and right second digit amputation. Patient is AAO x 3 and NAD, resting comfortably in bed. Patient states that he has no pain at this time. Denies any further pedal complaints or overnight events. Denies any recent N /V/F/C/CP/SOB/D Objective - Vital Signs/Intake and Output Vital Signs (last 24 hours): Temp Pulse Resp BP Pulse Ox 98.2 F 69 20 152/84 H 98 05/15/18 07:00 05/15/18 07:00 05/15/18 07:00 05/15/18 07:00 05/15/18 07:00 Intake and Output: 05/15/18 05/15/18 06:59 18:59 Intake Total 790 450 Output Total 800 Balance -10 450 - Medications Medications: Current Medications Acetaminophen (Tylenol 325mg Tab) 650 mg PO Q6 PRN PRN Reason: Pain, Mild (1-3) Last Admin: 05/14/18 10:19 Dose: 650 mg Amlodipine Besylate (Norvasc) 2.5 mg PO DAILY [facility] Last Admin: 05/15/18 09:59 Dose: 2.5 mg Aspirin (Aspirin Chewable) 81 mg PO DAILY [facility] Last Admin: 05/15/18 09:44 Dose: 81 mg Carvedilol (Coreg) 6.25 mg PO BID [facility] Last Admin: 05/15/18 09:44 Dose: 6.25 mg Clopidogrel Bisulfate (Plavix) 75 mg PO DAILY [facility] Last Admin: 05/15/18 09:44 Dose: 75 mg Cyclobenzaprine HCl (Flexeril) 10 mg PO TID [facility] Last Admin: 05/15/18 13:33 Dose: 10 mg Enoxaparin Sodium (Lovenox) 40 mg SC DAILY [facility] Last Admin: 05/15/18 10:15 Dose: 40 mg Glipizide (Glucotrol) 10 mg PO ACBD [facility] Last Admin: 05/15/18 07:41 Dose: 10 mg Guaifenesin/Dextromethorphan (Robitussin Dm) 10 ml PO Q4H PRN PRN Reason: Cough and congestion Hydrochlorothiazide (Hydrodiuril) 25 mg PO DAILY [facility] Last Admin: 05/10/18 09:25 Dose: 25 mg Piperacillin Sod/Tazobactam (Sod 3.375 gm/ Sodium Chloride) 100 mls @ 200 mls/hr IVPB Q8H [facility]; Protocol Last Admin: 05/15/18 08:12 Dose: 200 mls/hr Ibuprofen (Motrin Tab) 600 mg PO Q6H PRN PRN Reason: Pain, moderate (4-7) Last Admin: 05/08/18 00:31 Dose: 600 mg Insulin Aspart (Novolog) 0 unit SC ACHS [facility]; Protocol Last Admin: 05/15/18 12:17 Dose: 1 units Lisinopril (Zestril) 5 mg PO DAILY [facility] Last Admin: 05/15/18 09:43 Dose: 5 mg Metformin HCl (Glucophage) 1,000 mg PO BIDPC [facility] Last Admin: 05/15/18 09:44 Dose: 1,000 mg Oxycodone/Acetaminophen (Percocet 5/325 Mg Tab) 1 tab PO Q4H PRN PRN Reason: Pain, moderate (4-7) Stop: 05/16/18 09:35 Oxycodone/Acetaminophen (Percocet 5/325 Mg Tab) 2 tab PO Q4H PRN PRN Reason: Pain, severe (8-10) Stop: 05/16/18 09:35 Rosuvastatin Calcium (Crestor) 2.5 mg PO HS [facility] Last Admin: 05/14/18 21:39 Dose: 2.5 mg Sodium Hypochlorite (Dakins Solution 0.125%) 0 appl TOP DAILY [facility] Last Admin: 05/15/18 10:20 Dose: 20 appl Spironolactone (Aldactone) 25 mg PO DAILY [facility] Last Admin: 05/15/18 09:44 Dose: 25 mg - Labs Labs: 05/15/18 06:51 05/15/18 06:51 PT 11.4 SECONDS (9.7-12.2) 05/12/18 18:45 INR 1.0 05/12/18 18:45 APTT 37 SECONDS (21-34) H 05/12/18 18:45 - Constitutional Appears: Well, Non-toxic, No Acute Distress - Extremities Exam Additional comments: LE focused exam: VASC: DP/PT pulses nonpalpable, temperature gradient warm to warm from proximal to distal WNL, CFT delayed >4 seconds to all remaining digits, minimal edema consistent with post-operative status appreciated to amputation site, improving since yesterday ORTHO: Minimal pain on palpation of amputation site WNL, Amputation of right first and second digits noted NEURO: Epicritic and protective sensation grossly diminished b/l DERM: Surgical incision noted to right foot for amputation of first and second digit. Skin edges well coapted with no evidence of dehiscence and with all sutures in place. No erythema, malodor, drainage, bleeding, malodor or other clinical signs of infection appreciated - Neurological Exam Neurological Exam: Alert, Awake, Oriented x3 - Psychiatric Exam Psychiatric exam: Normal Affect, Normal Mood Assessment and Plan - Assessment and Plan (Free Text) Assessment: 72M seen and evaluated at bedside two days s/p right partial first ray amputation and right second digit amputation Plan: Patient seen and evaluated with Dr. Guy Afebrile, absent leukocytosis Continue abx per ID F/u intraop cultures and pathology Post-operative xrays reviewed and found to be appropriate given operation performed Wound dressed with xeroform, ABD, DSD No plan for further surgical intervention at this time Podiatry will continue to follow while patient in house Patient stable for discharge to subacute rehab facility from podiatry standpoint Patient will follow up with Dr. Guy was discharged as outpatient
[2018-05-15 17:08] VITALS: BP 123/69; TEMP 98.1; O2SAT 97
--- NOTE | 2018-05-16 08:06 | OP ---
PROCEDURE DATE: 05/13/2018 PREOPERATIVE DIAGNOSIS: Right foot osteomyelitis of hallux and second digit proximal phalanx. POSTOPERATIVE DIAGNOSIS: Right foot osteomyelitis of hallux and second digit proximal phalanx. PROCEDURE: Right foot hallux amputation with first metatarsal head resection and second digit amputation. SURGEON: Champ Guy DPM. NET WE[employer] APPLICATION DEVELOPER: Faina Marroquin, PGY-1. TYPE OF ANESTHESIA: IV sedation with local. ANESTHESIA ADMINISTERED BY: Bob Johnson MD. INDICATIONS: The patient is a 72-year-old male with the above diagnosis. The patient has exhausted all conservative treatment at this time. Denies long-term antibiotics and now requires surgical intervention. The patient signed the consent after careful explanation of risks, benefits, complications, and alternatives to the surgical procedure. No guarantees were given nor implied. N.p.o. status was confirmed prior taking the patient to the operating room. PREPARATION: The patient was brought into the operating room and placed on the operating room table in a supine position. Timeout was performed for identification of the correct patient and procedure. After induction, the right foot was then prepped and draped in the normal sterile manner and the procedure began. No tourniquet was utilized during this procedure. DESCRIPTION OF PROCEDURE: 1. Right foot hallux amputation with first metatarsal head resection. Attention was drawn to the distal tip of the right hallux where a circumferential racquet-type incision was made to the distal aspect of the hallux using a #15 blade at the level of the metatarsophalangeal joint. The incision was then extended down through the subcutaneous layers down to the level of the bone extending into the first metatarsophalangeal joint. Using a bone clamp to stabilize the hallux, the proximal phalanx was then disarticulated from the foot at the level of the metatarsophalangeal joint and sent to pathology. Using a fresh #15 blade, all necrotic and nonviable tissue were then excisionally debrided from the surgical site with additional soft tissue removed to allow for adequate skin closure without tension. Next, utilizing a sagittal saw, a proximal partial first metatarsal head resection was performed and passed from the operative field and sent to Pathology. The surgical site was then copiously flushed with normal sterile saline followed by Irrisept. The surgical site was then closed and reapproximated utilizing 3-0 Vicryl, 4-0 Vicryl, and skin closed with 3-0 nylon. 2. Right foot second digit amputation. Attention was drawn to the distal tip of the right second digit where a distal circumferential racquet-type incision was made using a #15 blade at the level of the metatarsophalangeal joint. The incision was extended down through the subcutaneous layers, down to the level of the bone extending into the first metatarsophalangeal joint. Using a bone clamp to stabilize the digit, the proximal phalanx was then disarticulated from the foot at the level of the metatarsophalangeal joint and sent to pathology. Using a fresh #15 blade, all necrotic and nonviable tissue were then excisionally debrided from the surgical site with additional soft tissue removed to allow for adequate skin closure without tension. Wound was then copiously flushed with normal sterile saline. The surgical site was then suture closed using two 0 and 3-0 Vicryl for deep subcutaneous sutures and 3-0 nylon for skin. The surgical sites were then dressed with Adaptic, 4x4 gauze and Kerlix followed by light Familia. POSTOPERATIVE CONDITION: The patient tolerated the anesthesia and procedure well and was escorted to the recovery room with all vital signs stable and neurovascular status intact to the right foot. The patient is to return to floor and Podiatry will continue to follow the patient. Upon discharge, the patient is to follow up with Dr. Guy in his office. SARAH Greenwood Champ Guy DPM CATHERINE
--- NOTE | 2018-05-21 08:09 | DS ---
HOSPITAL COURSE: The patient was admitted to the hospital with chief complaint of severe foot pain and swelling. The patient came as x-ray showed that there is osteomyelitis of the toe. The patient received antibiotics, wound care. The patient had amputation of the toe. The patient was sent for rehab, on physical therapy and IV antibiotics. DIAGNOSIS: Osteomyelitis of the foot. Elliot Olivarez MD
== END 2018-05-15 20:40 | DRG 617 ==
LOC: C.ER 15:53 → C.9E 18:34 → C.3T 18:57
PROVIDERS: ADMIT Internal Medicine Pulmonary Disease; ATTEND Internal Medicine Pulmonary Disease
PROC: B40D1ZZ Plain Radiography of Aorta and Bilateral Lower Extremity Arteries using Low Osmolar Contrast (ICD-10-PCS; 2018-05-07)
PROC: 02HV33Z Insertion of Infusion Device into Superior Vena Cava, Percutaneous Approach (ICD-10-PCS; principal; 2018-05-09)
PROC: 02HV33Z Insertion of Infusion Device into Superior Vena Cava, Percutaneous Approach (ICD-10-PCS; 2018-05-09)
PROC: 0Y6P0Z0 Detachment at Right 1st Toe, Complete, Open Approach (ICD-10-PCS; 2018-05-13)
PROC: 0Y6R0Z1 Detachment at Right 2nd Toe, High, Open Approach (ICD-10-PCS; 2018-05-13)
DX: E11.69 Type 2 diabetes mellitus with other specified complication (principal); E11.52 Type 2 diabetes mellitus with diabetic peripheral angiopathy with gangrene; I96 Gangrene, not elsewhere classified; M86.171 Other acute osteomyelitis, right ankle and foot; E78.5 Hyperlipidemia, unspecified; E11.65 Type 2 diabetes mellitus with hyperglycemia; Z79.4 Long term (current) use of insulin; E11.621 Type 2 diabetes mellitus with foot ulcer; I11.0 Hypertensive heart disease with heart failure; I25.10 Atherosclerotic heart disease of native coronary artery without angina pectoris; I50.9 Heart failure, unspecified; F17.210 Nicotine dependence, cigarettes, uncomplicated; L03.031 Cellulitis of right toe; L97.519 Non-pressure chronic ulcer of other part of right foot with unspecified severity